=== PATIENT | male | born 1965 | race Caucasian/White ===

== ENCOUNTER 2017-07-08 03:45 | Inpatient (IN) | payer OTHER ==
[2017-07-08] MEDS ORDERED: CEFAZOLIN/Water 2 GM/20 ML SYRINGE ONE (04:02)
[2017-07-08] MEDS ORDERED: Adacel (T-DAP) 0.5 ML VIAL ONE (04:02)
[2017-07-08 04:09] LABS: #Basophils 0.1 thou/uL (0.0-0.2); #Eosinphils 0.2 thou/uL (0.0-0.7); #Lymphocytes 2.2 thou/uL (1.20-3.40); #Monocytes 0.7 thou/uL (0.11-0.59); #Neutrophils 6.2 thou/uL (1.40-6.50); %Basophils 1.1 % (0.0-1.0); %Eosinophils 2.2 % (0.0-10.0); %Lymphocytes 23.1 % (21.0-51.0); %Monocytes 7.1 % (0.0-10.0); %Neutrophils 66.6 % (42.0-75.0); Hemoglobin 16.2 g/dL (14.0-18.0); Mean Corpuscular HGB CONC 34.8 g/dL (32.0-36.0); Mean Corpuscular Hemoglobin 33.7 pg (27.0-31.0); Mean Corpuscular Volume 96.9 fl (80.0-94.0); Mean Platelet Volume 7.5 fL (7.4-10.4); Platelet Count 188 thou/uL (130-400); RBC Distribution Width 11.6 % (11.5-14.5); Red Blood Cell (RBC) Count 4.82 mill/uL (4.70-6.10); White Blood Cell (WBC) Count 9.3 thou/uL (4.8-10.8)
[2017-07-08 04:18] LABS: PTT 23.8 SEC (22.9-36.1); Prothrombin Time 13.3 SEC (12.0-14.7)
[2017-07-08] MEDS ORDERED: Dextrose 50% Abboject 50 ML SYRINGE SLOW IVP PRN (04:25)
[2017-07-08] MEDS ORDERED: Dextrose 5% in Water 1,000 ML IV PRN (04:25)
[2017-07-08 04:32] LABS: ALT (SGPT) 38 U/L (8-55); AST (SGOT) 34 U/L (5-34); Albumin 4.3 g/dL (3.5-5.0); Alcohol 176 mg/dL (Less than 10); Alkaline Phosphatase 68 U/L (40-150); Anion Gap 17 mmol/L (10-20); BUN (Urea Nitrogen) 14 mg/dL (8.4-25.7); Bilirubin, Total 0.3 mg/dL (0.2-1.2); Calc. Creatinine Clearance 0 mL/min (70-130); Calcium 8.5 mg/dL (7.8-10.44); Carbon Dioxide 17 mmol/L (22-29); Chloride 104 mmol/L (98-107); Estimated GFR-MDRD 56; Globulin 2.7 g/dL (2.4-3.5); Glucose 142 mg/dL (70-105); Potassium 3.3 mmol/L (3.5-5.1); Sodium 135 mmol/L (136-145)
[2017-07-08 04:32] LABS: Acetaminophen Less than 6.0 mcg/mL (10.0-30.0); Alcohol 174 mg/dL (Less than 10); Salicylate Less than 8.0 mg/dL (15.0-30.0)
[2017-07-08] MEDS ORDERED: manNITOL 20% 0 ML ONE (04:35)
[2017-07-08] MEDS ORDERED: Propofol 1,000 MG/100 ML VIAL IV PRN (04:37)
[2017-07-08 05:04] LABS: Actual Bicarbonate (HCO3a) 19.4 mEq/L (22-26); Base Excess (BEa) -7.8 mEq/L (0 (+/-) 2.5); CO2 Tension 45.5 mmHg (35.0-45.0); Hematocrit-ABG 46.6 % (42.0-52.0); Hemoglobin (Hb) 15.2 g/dL (14.0-18.0); O2 Tension (PaO2) 234.7 mmHg (80.0-100.0); pH, Arterial 7.25 (7.35-7.45)
[2017-07-08 05:05] LABS: ALV-art Gradient 416.425 (0-20); Analyzer IN Cardio ER; Calcium, Ionized 1.1 mmol/L (1.12-1.30); Puncture Site RRA
[2017-07-08] MEDS ORDERED: ISOVUE-370 76%-LOCM 1 ML ONE (06:24)
[2017-07-08] MEDS: Sodium Chloride 0.9% 1,000 ML IV SCH ×3 (07:00→22:02)
[2017-07-08] MEDS ORDERED: Lorazepam 2 MG/ML VIAL ONE (07:18)
[2017-07-08] MEDS ORDERED: Lorazepam 2 MG/ML VIAL SLOW IVP PRN (07:28)
[2017-07-08] MEDS ORDERED: Fentanyl BOLUS 250 ML IVPB PRN (07:28)
[2017-07-08] MEDS ORDERED: Morphine 2 MG/ML SYRINGE SLOW IVP PRN (07:28)
[2017-07-08] MEDS ORDERED: levETIRAcetam In NaCl (Iso-Os) 1,000 MG in Premix Bag 1 BAG IVPB SCH (07:45)
[2017-07-08] MEDS: Propofol 1,000 MG/100 ML VIAL IV PRN ×4 (08:06→21:02)
[2017-07-08] MEDS: Pantoprazole 40 MG VIAL IVP SCH (08:55)
--- NOTE | 2017-07-08 08:55 | CT ---
PRELIMINARY REPORT/[facility]/EMERGENCY AFTER HOURS PROCEDURE: EXAM: CT Head Without Intravenous Contrast CLINICAL HISTORY: 51 years old, male; Injury or trauma; Fall; Initial encounter; Blunt trauma (contusions or hematomas) ; With loss of consciousness; Not specified; Patient HX: S/P fall, level 1 trauma. TECHNIQUE: Axial computed tomography images of the head/brain without intravenous contrast. COMPARISON: No relevant prior studies available. FINDINGS: Brain: Multifocal bilateral acute subdural hematomas, most prominent over the posterior right parietal regio n laterally where hematoma measures up to 10 mm. Moderate volume bilateral acute subarachnoid hemorrhage right > left. Left cerebellar 4.4 x 2.6 cm parenchymal hematoma with surrounding vasogenic edema. Hemorrhagic fluid layers throughout the falx cerebral and cerebellar falx. 7 mm of right to left subfalcine herniation with effacement of right lateral ventricle but no hydroce phalus. Basilar cisterns are effaced as well and cerebral aqueduct / fourth ventricle are severely narrowed. Cantu / white differentiation maintained at this time. Ventricles: See above. Bones/joints: Bilateral nondisplaced occipital bone fractures extending inferiorly to the skull base. Bilateral transverse nondisplaced temporal bone fractures extending through the mastoid air cells an d petrous ridges. On the left, fracture extends through the carotid canal. Soft tissues: No acute findings. Sinuses: Hemorrhagic fluid also noted in the maxillary sinuses and sphenoid sinuses. Mastoid air cells: Hemorrhagic fluid opacifies mastoid air cells and middle ear cavities. IMPRESSION: Combination bilateral subarchnoid and subdural hemorrhages, right > left with 7 mm right to left subf alcine herniation. Left cerebellar parenchymal hematoma. Basilar cisterns are effaced as well and cerebral aqueduct / fourth ventricle are severely narrowed. No hydrocephalus. Cantu / white differentiation maintained at this time. Bilateral occipital and temporal bone fractures with left temporal fracture extending through the car otid canal. THIS REPORT CONTAINS FINDINGS THAT MAY BE CRITICAL TO PATIENT CARE. The findings were verbally commun icated via telephone conference with TERRA Villanueva by Dr. Juarez on 07/08/2017 4:44 AM INDUSTRIAL TRACTOR DRIVER. The r esults were acknowledged and understood. Thank you for allowing us to participate in the care of your patient. Dictated and Authenticated by: Teri Juarez MD 07/08/2017 4:44 AM Central Time ([place] & [place]) FINAL REPORT HEAD CT NONCONTRST: FINDINGS/IMPRESSION: I agree with the preliminary interpretation provided above. Diffuse extraaxial hemorrhage, both subarachnoid and subdural in location involving the supratentoria l and infratentorial brain with associated bilateral skull base fractures with involvement of the lef t carotid canal. Associated, generalized, diffuse sulcal effacement as a result. POS: [facility]
--- NOTE | 2017-07-08 09:18 | PRG ---
DATE OF SERVICE: 07/08/2017 CHIEF COMPLAINT: Traumatic brain injury with multi-compartmental intracranial bleed, status post fall with skull base fracture. HISTORY OF PRESENT ILLNESS: Mr. Rodrigez is a 51-year-old man who is drinking alcohol today, he was found down by his family. He was minimally responsive and EMS was activated and airway secured. Upon arrival, his GCS was 77. Head CT demonstrated a small right-sided acute subdural hematoma with traumatic subarachnoid hemorrhage in the right sylvian fissure and subarachnoid hemorrhage really throughout the brain and a left hemorrhagic contusion associated with effacement of the ventricular system and basal cisterns. Overall, there is diffuse cerebral edema. He has a left skull base fracture involving the occiput. The cervical, thoracic, and lumbar imagings are negative. He has a history of an L5-S1 fusion. PHYSICAL EXAMINATION: GENERAL: He has a GCS 7T. EYES: His right pupil is 5 mm and reactive. His left pupil is 4 mm and reactive to 3. EXTREMITIES: He localizes in the 4 extremities. IMPRESSION AND PLAN: I discussed his case with Dr. Lua and we will place an ICP monitor. We will watch his course closely. Should he fail medical therapy with intracranial hypertension, we will need to consider hemicraniectomy. We will also obtain a CTA of the brain as his fracture extends through the left carotid canal to make sure he does not have a carotid dissection and also given the blood in the sylvian fissure and particular on the right, to evaluate for ruptured aneurysm, although I suspect not, we will initiate mannitol at this point. ICP monitor will be placed under emergent conditions. DIAGNOSES: 1. Traumatic brain injury with acute subdural hematoma, traumatic subarachnoid hemorrhage and cerebral edema. 2. Left skull base fracture. 3. Ethanol intoxication. MTDD
[2017-07-08 09:26] LABS: Actual Bicarbonate (HCO3a) 18.8 mEq/L (22-26); Base Excess (BEa) -7.1 mEq/L (0 (+/-) 2.5); CO2 Tension 39.4 mmHg (35.0-45.0); Hematocrit-ABG 46.6 % (42.0-52.0); Hemoglobin (Hb) 15.4 g/dL (14.0-18.0); O2 Tension (PaO2) 78.5 mmHg (80.0-100.0)
[2017-07-08 09:27] LABS: Puncture Site RBRACH
--- NOTE | 2017-07-08 09:29 | CT ---
PRELIMINARY REPORT/[facility]/EMERGENCY AFTER HOURS PROCEDURE: EXAM: CT Cervical Spine Without Intravenous Contrast CLINICAL HISTORY: 51 years old, male; Injury or trauma; Fall; Initial encounter; Blunt trauma (contusions or hematomas) ; With loss of consciousness; Not specified; Patient HX: S/P fall, level 1 trauma. TECHNIQUE: Axial computed tomography images of the cervical spine without intravenous contrast. COMPARISON: No relevant prior studies available. FINDINGS: Vertebrae: No fracture or dislocation. No acute compression deformity. No suspicious osseous lesions. Disc spaces / canal / foramina: There is multilevel degenerative disc space narrowing and spur formation. No CT evidence of advanced canal or foraminal stenosis. Paraspinal soft tissues: No pathologic masses or fluid collections. No visible soft tissue air. IMPRESSION: Chronic degenerative changes without acute fracture or dislocation of the cervical spine. Refer to CT brain report regarding occipital and temporal bone fractures. Thank you for allowing us to participate in the care of your patient. Dictated and Authenticated by: Teri Juarez MD 07/08/2017 4:48 AM Central Time ([place] & [place]) FINAL REPORT CT CERVICAL SPINE: There are degenerative changes in the cervical spine most prominent at C5-6 and C6-7 levels. No acut e cervical spine fracture identified. I am in agreement with the preliminary report. POS: [facility]
[2017-07-08 09:30] LABS: Magnesium 2.4 mg/dL (1.6-2.6); Phosphorus 4.3 mg/dL (2.3-4.7)
[2017-07-08] MEDS ORDERED: Oxazepam 10 MG CAP PO SCH (09:45)
--- NOTE | 2017-07-08 10:09 | RAD ---
PORTABLE SUPINE CHEST: HISTORY: Found unconscious. FINDINGS/IMPRESSION: Lungs appear well aerated. ET tube and NG tube are in place. There is streaky atelectasis and/or in filtrate seen in the right upper lung and in the left mid lung. No pneumothorax or consolidation. O sseous structures appear intact. POS: [facility]
[2017-07-08] MEDS: Ondansetron HCl/PF 4 MG/2 ML Vial IVP PRN (10:12)
[2017-07-08 10:18] LABS: Osmolality, Serum 330 mOsm/kg (280-295)
[2017-07-08 10:28] LABS: Amphetamine Not Detected (NotDetected); Barbiturates Screen Not Detected (NotDetected); Benzodiazepine Screen Not Detected (NotDetected); Cocaine Metabolite Screen Not Detected (NotDetected); Medtox Control Line Valid? VALID (VALID); Medtox Reader # READER 1; Methadone Not Detected (NotDetected); Methamphetamine Not Detected (NotDetected); Opiate Screen Not Detected (NotDetected); Oxycodone Screen Not Detected (NotDetected); Phencyclidine (PCP) Not Detected (NotDetected); THC/Cannabinoid Screen Not Detected (NotDetected); Tricyclic Screen Not Detected (NotDetected)
[2017-07-08] MEDS: CEFAZOLIN/Water 2 GM/20 ML SYRINGE SLOW IVP SCH ×2 (11:49→19:23)
--- NOTE | 2017-07-08 13:51 | OP ---
PREPROCEDURE DIAGNOSES: Concern of head injury with cerebral edema and concern of elevated intracran ial pressure. POSTPROCEDURE DIAGNOSES: Concern of head injury with cerebral edema and concern of elevated intracra nial pressure. PROCEDURE: Placement of right ICP Anthony monitor for monitoring of intracranial pressure. DESCRIPTION OF PROCEDURE: A modifier 57 should be added to this surgery as the procedure was done on the day I saw the procedure. Proceeding in an emergent conditions, the patient was identified in th e right frontal, Stephanie's point was identified in this region, was sterilely cleansed, prepared, and draped. Proper patient pause and identification was carried out. Small stab incision was made follo wing sterile cleansing, preparation and draping in the right frontal region and the skull perforated with the skull drill supervisor poultry processing. The dura was opened and the [place] monitor was bolted into place. The tip of the transducer was zeroed and placed and secured, initial intracranial pressure was 8-15 m mHg with a satisfactory waveform. The patient was transferred up to the ICU. There were no immediat e procedural complications.
[2017-07-08] MEDS: Oxazepam 10 MG CAP PO SCH ×2 (14:13→21:00)
[2017-07-08] MEDS ORDERED: FLU VACC QS2017-18 36 mo. & older 0.5 ML SYRINGE IM ONE (15:00)
[2017-07-08 16:27] LABS: Sodium 137 mmol/L (136-145)
--- NOTE | 2017-07-08 16:40 | CT ---
PRELIMINARY REPORT/[facility]/EMERGENCY AFTER HOURS PROCEDURE: EXAM: CT Chest With Intravenous Contrast EXAM DATE/TIME: 07/08/2017 4:07 AM CLINICAL HISTORY: 51 years old, male; Injury or trauma; Fall; Initial encounter; Blunt; Generalized; Blunt trauma (contusions or hematomas); Patient HX: S/P fall, level 1 trauma. TECHNIQUE: Axial computed tomography images of the chest with intravenous contrast. Reformatted images were created and reviewed. CONTRAST: 100 mL of ISOVUE administered intravenously. COMPARISON: No relevant prior studies available. FINDINGS: Lungs: Small-moderate atelectasis versus infiltrates versus pulmonary contusions in the lower lobes, right greater than left. Small amount in the upper lobes. Pleural space: No acute findings. No pneumothorax. No significant effusion. Heart: No significant pericardial effusion. Bones/joints: No acute findings. No acute fracture. No dislocation. Soft tissues: No acute findings. Vasculature: No acute findings. No thoracic aortic aneurysm. Lymph nodes: No significant adenopathy. Tubes, lines and devices: NG tube at the GE junction. Endotracheal tube is 5 cm above the jessy. IMPRESSION: 1: NG tube at the GE junction. Recommend advancing the NG tube 2: Small-moderate atelectasis versus infiltrates versus pulmonary contusions in the lower lobes, righ t greater than left. Small amount in the upper lobes. 3: Endotracheal tube is 5 cm above the jessy. Thank you for allowing us to participate in the care of your patient. Dictated and Authenticated by: Jay Jay Gotti MD 07/08/2017 4:44 AM Central Time ( & Jesus) Addendum created by Jay Jay Gotti MD on 07/08/2017 4:58 AM Central Time ([place] & [place]) THIS REPORT CONTAINS FINDINGS THAT MAY BE CRITICAL TO PATIENT CARE. The findings were verbally commun icated via telephone conference with TERRA PEREIRA at 4:58 AM TECHNICAL WRITER on 07/08/2017. The findings were ackn owledged and understood. Initial Report created on 07/08/2017 4:48 AM Central Time ([place] & [place]) EXAM: CT Abdomen and Pelvis With Intravenous Contrast EXAM DATE/TIME: 07/08/2017 4:07 AM CLINICAL HISTORY: 51 years old, male; Injury or trauma; Fall; Initial encounter; Blunt; Generalized; Blunt trauma (cont usions or hematomas); Patient HX: S/P fall, level 1 trauma. TECHNIQUE: Axial computed tomography images of the abdomen and pelvis with intravenous contrast. CONTRAST: 100 mL of ISOVUE administered intravenously. COMPARISON: No relevant prior studies available. FINDINGS: Lower thorax: See chest CT dictation ABDOMEN: Liver: No mass. Gallbladder and bile ducts: No calcified stones. Pancreas: No acute findings. Spleen: No acute findings. Adrenals: No acute findings. Kidneys and ureters: No hydronephrosis. Stomach and bowel: No evidence for small bowel obstruction. Appendix: No findings to suggest acute appendicitis. PELVIS: Bladder: No acute abnormality. Dorsey catheter in place Reproductive: Unremarkable as visualized. ABDOMEN and PELVIS: Intraperitoneal space: No acute findings. No free air. No significant fluid collection. Bones/joints: No acute fracture. No dislocation. Bilateral L5 pars defects. Posterior fusion hardware at L5-S1 Soft tissues: No acute findings. Vasculature: No acute findings. No abdominal aortic aneurysm. Lymph nodes: No significant adenopathy. Tubes, lines and devices: NG tube at the GE junction IMPRESSION: 1: No evidence for acute trauma to the intra-abdominal organs 2: NG tube at the GE junction. Recommend advancing the NG tube Thank you for allowing us to participate in the care of your patient. Dictated and Authenticated by: Jay Jay Gotti MD 07/08/2017 4:48 AM Central Time ([place] & [place]) FINAL REPORT CT CHEST AND ABDOMEN AND PELVIS WITH IV CONTRAST: Multiple axial tomograms obtained through the chest, abdomen, and pelvis with iv contrast following a trauma protocol. FINDINGS: CT CHEST: There are confluent parenchymal opacities in the posterior aspect of both lower lobes which could rep resent infiltrate, atelectasis, or contusion. These findings were described on the preliminary repor t. I am in agreement with the preliminary report. CT ABDOMEN AND PELVIS: No evidence of acute intraabdominal injury or abnormality. I am in agreement with the preliminary re port. CT THORACIC AND LUMBAR SPINE: Sagittal and coronal images of the thoracic and lumbar spine obtained. Degenerative changes in the c ervical spine. Mild degenerative changes throughout the thoracic and lumbar spine. Thoracic and lum bar vertebrae maintain height and alignment. There are postoperative changes at L5-S1 with pedicle s crews. No evidence of acute vertebral body compression or fracture identified. IMPRESSION: No acute thoracic or lumbar spine fracture identified. I am in agreement with the preliminary report. POS: [facility]
--- NOTE | 2017-07-08 17:09 | PRG ---
DATE OF SERVICE: 07/08/2017 SUBJECTIVE: Mr. Rodrigez is a 51-year-old man, who is status post ground level fall while ethanol into xicated. The patient suffered severe acute traumatic brain injury with left cerebellar contusion, bi frontal cerebral contusion, right convexity subdural hematoma with scattered subarachnoid hemorrhages in addition to comminuted basilar skull fracture. The patient is on full mechanical ventilator supp ort. He is sedated to a modified [place] score of 2-3. His [place] coma scale has remained in single digits. The patient currently localizes to pain once light on sedation. Arlen coma scale therefo re reads E2 M5 V1T. OBJECTIVE: VITAL SIGNS: Includes blood pressure 107/69, pulse is 90, respiratory rate is 18, temperature is 99. 9 degrees Fahrenheit, oxygen saturation 100%. HEENT: Reveals stable occipital scalp abrasions with underlying nonexpanding cephalohematoma. Pupil s are equal, round, and reactive to light bilaterally. He has no jugular venous distention noted. HEART: Reveals regular rate and rhythm. No murmurs or gallops auscultated. LUNGS: Clear to auscultation bilaterally. His breathing is regular and unlabored. ABDOMEN: Soft, nontender, and nondistended. EXTREMITIES: Reveals 2+ radial and pedal pulses bilaterally. No ankle edema is present. NEUROLOGIC: As stated above. Clearly has no focal neurologic deficits present. LABORATORY DATA: Includes CBC with 9300 white blood cells, hemoglobin 16.2, hematocrit is 46.7, plat elet count is 188,000. Metabolic profile: Sodium 135, potassium is 3.3, chloride is 104, bicarbonat e 17, BUN 14, creatinine is 1.33, glucose 142, phosphorus is 4.3, magnesium is 2.4. IMPRESSION: 1. Acute severe traumatic brain injury without any evidence of intracranial hypertension. 2. Acute posttraumatic respiratory failure, stable. 3. Multiple skull base fractures. 4. Acute hypokalemia. 5. Relative acute hyponatremia. PLAN: 1. Continue with full mechanical ventilatory support until the patient is neurologically stable. 2. Correct abnormal electrolytes. 3. Monitor the patient for onset of cerebral salt wasting or acute diabetes insipidus. Total critical care time is 45 minutes.
[2017-07-08] MEDS ORDERED: Potassium Chloride 40 MEQ in Sodium Chloride 0.9% 250 ML 250 ML IVPB SCH (18:00)
--- NOTE | 2017-07-08 18:29 | HP ---
DATE OF ADMISSION: 07/08/2017 HISTORY OF PRESENT ILLNESS: Mr. Rodrigez is a 51-year-old man who apparently was drinking with his family last night. He apparently fell from a standing position. This was not witnessed; however, his heard a thump. The patient was found initially obviously inebriated. Thirty minutes later, the patient was not seen around and was discovered on the kitchen floor unresponsive. 911 was activated and responded; EMS reported the patient being combative after receiving Narcan. He had 1 bout of large volume emesis. His airway was cleared and the patient was electively intubated and transported via ambulance to [facility] in [place], [place]. He had obvious external markers of head trauma. Arlen coma scale pre-intubation was noted at E1, M4, V2. The patient arrived hemodynamically stable though with a Arlen coma scale of 3 , having been sedated and pharmacologically paralyzed for transport. PAST MEDICAL HISTORY: Significant for gastroesophageal reflux disease. PAST SURGICAL HISTORY: Pertinent for some back surgery according to his , level unknown. SOCIAL HISTORY: He is and lives at home with his . He smokes I pack of cigarettes per day and he has done so far over 20 years. He drinks heavily only on weekends. The reports the patient never had any alcohol withdrawal. He has no illicit drug abuse history. FAMILY HISTORY: Notable for heart disease in his father who from complications thereof. There is no family history of diabetes mellitus, essential hypertension or cancer. PREHOSPITALIZATION MEDICATION: Includes Nexium. ALLERGIES: The patient denies no known drug allergies. REVIEW OF SYSTEMS: Could no be obtained as the patient is in deep coma and has been sedated on mechanical ventilator support. PHYSICAL EXAMINAITON: GENERAL: This reveals a 51-year-old normally developed man, who is in coma and appeared to be in no acute distress at the time of my evaluation. He is intubated through an endotracheal tube orally. VITAL SIGNS: Initially includes blood pressure 142/97, pulse 64, respiratory rate is 16, temperature is 92.7 degrees Fahrenheit, oxygen saturation 99% on full mechanical ventilatory support, FiO2 100%. HEENT: Reveals left occipital skull abrasion with minimum cephalohematoma. Pupils are equally round, and reactive to light at 2 mm bilaterally. Nares are patent. No discharge. Left tympanic membrane is obscured by blood. The right tympanic membrane is visualized. No hemotympanum is present. CERVICAL SPINE: Cervical spine, which is immobilized in a C-collar is maintained in a neutral position. He has no cervical spine step-offs on palpation. CHEST: Chest wall is stable. No gross deformities or step-offs are present. HEART: Reveals regular rate and rhythm, no murmurs or gallops auscultated. LUNGS: Clear to auscultation bilaterally. Breathing is regular and unlabored. ABDOMEN: Soft, nontender, nondistended. Liver and spleen are nonpalpable below costal margins. PELVIS: Stable. No gross deformities or step-offs present. GENITOURINARY: Examination reveals bilateral descended testicles and normal male genitalia. He has no blood in his urethral meatus. There was no ecchymosis or hematoma of the scrotum or perineum. EXTREMITIES: Reveals 2+ radial and pedal pulses bilaterally. He has bruising of the right knee as well as abrasions of the dorsum aspect of the second left toe. NEUROLOGIC: Suboptimal. Patient is in coma and is sedated, pharmacologically paralyzed during this examination. When the patient was log rolled, thoracic and lumbar spine were palpated free of any acute abnormalities. PERTINENT LABORATORY DATA AND IMAGING: Today includes CBC with 9300 white blood cells, hemoglobin 16.2, hematocrit is 46.7, platelet count is 188,000. PTT and INR noted at 23.8 seconds and 1.0 respectively. Metabolic profile: Sodium 135, potassium is 3.3, chloride is 104, bicarbonate 17, BUN 14, creatinine is 1.33, glucose 142. Total bilirubin is 0.3. AST and ALT are normal at 34 and 38 respectively. Alkaline phosphatase is normal at 68. Serum alcohol level is 174. Chest x-ray confirms normal placement of the endotracheal tube. No acute traumatic injury is evident. A CT scan of the brain is remarkable for moderate left cerebellar contusion, associated left occipital skull fracture and left temporal bone fracture. Also noted is right convexity small thickness subdural hematoma with right to left midline shift. There is a contrecoup bifrontal cerebral contusion and some scattered subarachnoid hemorrhages. CT scan of the chest is unremarkable for any acute intrathoracic pathology. CT scan of the abdomen and pelvis revealed no acute intraabdominal pathology. CT scan of the cervical spine reveals no fractures or dislocation. CT scan of the thoracic and lumbar spine revealed no fractures or dislocation. IMPRESSION: 1. Status post ground level fall. 2. Acute ethanol intoxication. 3. Acute severe traumatic brain injury with coup left cerebellar contusion and bifrontal contrecoup cerebellar contusions as well as right convexity subdural hematoma and scattered subarachnoid hemorrhages. 4. Acute cerebral edema. 5. Acute respiratory failure secondary to acute traumatic brain injury. 6. Left occipital and temporal bone fractures. PLAN: 1. Neurosurgical consultation with Dr. Nogueira regarding the acute severe traumatic brain injury. 2. Full mechanical ventilatory support until the patient is neurologically stable. 3. Monitor electrolytes and avoid hyponatremia. 4. Initiate prophylaxis against venous thromboembolism and gastritis. 5. Initiate physical and occupational therapy. The patient will eventually be evaluated by PM&R for possible inpatient rehabilitation once neurologically stable. The above findings and plan has been discussed with the patient's family at bedside. They indicated understanding of the information given. I have answered their questions. Total Critical Care time : 75 minutes MTDD
[2017-07-09] MEDS: Propofol 1,000 MG/100 ML VIAL IV PRN ×7 (00:06→23:36)
--- NOTE | 2017-07-09 00:13 | PRG ---
DATE OF SERVICE: 07/08/2017 SUBJECTIVE: This is a 51-year-old gentleman who was presented to [facility] with level 1 tr auma activation status post ground level fall. He was found to have severe TBI. The patient has rem ained stable throughout the day. He currently is sedated on mechanical ventilation. OBJECTIVE: Reviewed and stable. Ventilator settings are stable. Symmetric chest rise. The patient is sedated. ICP monitoring is in place. LABORATORY DATA: Most recent labs reviewed with trauma attending. Urine output has been adequate. ASSESSMENT AND PLAN: As documented in daily progress note. Continue care as ordered. CTA has been ordered for the a.m. We will follow a.m. labs. Continue sedation in mechanical ventilation. Case h as been discussed with trauma attending.
[2017-07-09] MEDS: CEFAZOLIN/Water 2 GM/20 ML SYRINGE SLOW IVP SCH ×3 (03:15→20:45)
[2017-07-09 04:43] LABS: #Lymphocytes 0.8 thou/uL (1.20-3.40); #Monocytes 1.4 thou/uL (0.11-0.59); #Neutrophils 11.7 thou/uL (1.40-6.50); %Basophils 0.1 % (0.0-1.0); %Eosinophils 0.2 % (0.0-10.0); %Lymphocytes 5.5 % (21.0-51.0); %Neutrophils 84.1 % (42.0-75.0); Hemoglobin 13.4 g/dL (14.0-18.0); Mean Corpuscular HGB CONC 33.6 g/dL (32.0-36.0); Mean Corpuscular Hemoglobin 32.7 pg (27.0-31.0); Mean Corpuscular Volume 97.3 fl (80.0-94.0); Mean Platelet Volume 7.6 fL (7.4-10.4); Platelet Count 162 thou/uL (130-400); RBC Distribution Width 11.6 % (11.5-14.5); Red Blood Cell (RBC) Count 4.09 mill/uL (4.70-6.10); White Blood Cell (WBC) Count 13.9 thou/uL (4.8-10.8)
[2017-07-09 05:02] LABS: Anion Gap 11 mmol/L (10-20); BUN (Urea Nitrogen) 14 mg/dL (8.4-25.7); Calc. Creatinine Clearance 105 mL/min (70-130); Calcium 7.9 mg/dL (7.8-10.44); Carbon Dioxide 24 mmol/L (22-29); Chloride 103 mmol/L (98-107); Estimated GFR-MDRD 68; Glucose 121 mg/dL (70-105); Magnesium 2.1 mg/dL (1.6-2.6); Phosphorus 2.2 mg/dL (2.3-4.7); Potassium 3.8 mmol/L (3.5-5.1); Sodium 134 mmol/L (136-145)
[2017-07-09] MEDS: Oxazepam 10 MG CAP PO SCH ×3 (05:59→22:08)
[2017-07-09] MEDS: Sodium Chloride 0.9% 1,000 ML IV SCH ×2 (08:02→15:19)
[2017-07-09] MEDS: Folic Acid 1 MG TAB PO SCH (08:55)
[2017-07-09] MEDS: Pantoprazole 40 MG VIAL IVP SCH (08:56)
--- NOTE | 2017-07-09 11:18 | CT ---
CT ANGIO HEAD WITH AND WITHOUT CONTRAST: HISTORY: Follow-up intracranial hemorrhage. TECHNIQUE: Multiple axial tomograms obtained through the head without IV enhancement. This was followed by a CT angio of the head performed with IV enhancement, in the arterial phase, with multiplanar reconstruct ion and 3D post processing. FINDINGS: NONCONTRAST CT: Review of the noncontrast CT again shows the parenchymal hematoma in the left cerebe llar hemisphere. This hematoma has not significantly changed in size. There continues to be diffuse subarachnoid hemorrhage seen in both cerebral hemispheres, slightly more pronounced on the right, in the region of the sylvian fissure, similar to yesterday. There is blood along the falx. On today's exam, there is decreased attenuation seen in the inferior frontal lobes bilaterally, which may represent changes from contracoup type injury, given the presence of the occipital bone fracture s. No other significant change on the noncontrast study. CT ANGIO HEAD: The right middle cerebral artery is abnormal. There is luminal irregularity and mild narrowing seen at the proximal M1 segment on the axial images. There is haziness surrounding this a rtery in both M1 and M2 segments. Findings may represent spasm related to the subarachnoid blood. Otherwise, the anterior cerebral arteries, left middle cerebral artery, and posterior cerebrals are u nremarkable. The basil artery is patent. The intracranial internal carotid arteries are unremarkabl e. No aneurysm identified. IMPRESSION: 1. The noncontrast head CT again shows intracranial hemorrhages, as described above, which appear st able. There is increased lucency in the inferior frontal lobes seen today, as noted above. 2. The CT angiogram of the brain shows an abnormality of the right middle cerebral artery, which ma y reflect changes due to the subarachnoid hemorrhage, as noted above. POS: [facility]
--- NOTE | 2017-07-09 11:31 | RAD ---
FRONTAL VIEW CHEST: INDICATIONS: Post traumatic head injury. Respiratory failure. COMPARISON: The previous day. FINDINGS: Developing patchy right perihilar opacities are present. The left lung is grossly clear. An enteric catheter traverses through the left upper abdomen. There are extrinsic artifacts limiting detail. IMPRESSION: Developing right perihilar opacity, which may be on the basis of pneumonitis or asymmetric edema. Co ntinued followup is recommended. POS: [facility]
--- NOTE | 2017-07-09 14:43 | PRG ---
DATE OF SERVICE: 07/09/2017 SUBJECTIVE: Mr. Rodrigez is hospital day #2 following a head injury. CT angiogram demonstrates likely mild vasospasm in the right M1 distribution due to subarachnoid hemorrhage. However, his intracrani al blood pattern has reduced. His edema also appears to be improved. His ICPs have been in the 7-12 mmHg range. He remains on scheduled mannitol with appropriate lab indices. We will continue to anand p him sedated at this point through to the peak edema and hopefully avoid any type of surgical interv ention.
--- NOTE | 2017-07-09 15:48 | PRG ---
CRITICAL CARE NOTE DATE OF SERVICE: 07/09/2017 SUBJECTIVE: Mr. Rodrigez is a 51-year-old man who was admitted on 07/08 following an apparent fall during which he sustained a severe acute traumatic brain injury. The patient is sedated on full mechanical ventilator support. ICP has been ranging less than 15. When light on sedation, he opens his eyes and localizes to pain. He has had no bowel movement. He requires no vasopressor support. A repeat head CT scan today reveals bifrontal vasogenic edema. The previous intracranial hemorrhages were resolving. The left cerebellar hemorrhagic contusion appears stable. The cerebral angiography that was obtained suggests luminal narrowing of the M1 segment of right middle cerebral artery in the vicinity of the previous large subarachnoid hemorrhage. The patient is having adequate urinary output. OBJECTIVE: VITAL SIGNS: Today includes blood pressure 114/75, pulse 93 and respiratory rate 17. Maximum temperature in the last 24 hours is 100.1 degrees Fahrenheit. Oxygen saturation is 100% on FiO2 of 30%. HEENT: Reveals pupils are equal, round and reactive to light bilaterally. He has no jugular venous distention noted. HEART: Reveals regular rate and rhythm. He has no murmurs or gallops auscultated. LUNGS: Clear to auscultation bilaterally. Breathing is regular and unlabored. ABDOMEN: Soft, nontender and nondistended. Bowel sounds in all four quadrants appear normoactive. EXTREMITIES: Reveals 2+ radial and pedal pulses bilaterally. He has no ankle edema present. NEUROLOGIC: Reveals patient who is in coma; however, stable. He has no focal neurologic deficits on examination. LABORATORY DATA: Pertinent laboratory findings today includes CBC with 13,900 white blood cells, hemoglobin is 13.4, hematocrit is 39.8 and platelet count is 162,000. Metabolic profile: Sodium 134, potassium is 3.8, chloride is 103, bicarbonate is 24, BUN 14, creatinine is 1.13, glucose 121, magnesium is 2.1 and phosphorus is 2.2. IMAGING DATA: I have personally reviewed the chest x-ray obtained today, which reveals increased in the right upper lobe pulmonary consolidative infiltrates. No pneumothorax or pleural effusion is evident. Given this patient's history of emesis and pulmonary aspiration prior to initial intubation at the scene of the fall, this likely suggest a pulmonary aspiration. IMPRESSION: 1. Post-injury day #1, status post fall. 2. Acute severe traumatic brain injury, stable. 3. Acute posttraumatic respiratory failure. 4. Acute pulmonary aspiration, likely acute aspiration pneumonia given the leukocytosis and fever onset over the last 24 hours. 5. Acute hypokalemia. 6. Acute hypophosphatemia. 7. Relative acute hyponatremia. PLAN: 1. Continue with full mechanical ventilatory support. 2. Continue with free water restriction. 3. Correct abnormal electrolytes. 4. Continue with physical and occupational therapy. 5. Maintain prophylaxis against gastritis and VTE. Total Critical care time : 50 minutes MTDD
[2017-07-09 16:27] LABS: Sodium 137 mmol/L (136-145)
[2017-07-09] MEDS ORDERED: Clopidogrel Bisulfate 75 MG TAB ONE (16:41)
[2017-07-09] MEDS: Potassium Phosphate 30 MMOL in Sodium Chloride 0.9% 500 ML IVPB SCH ×2 (16:45→18:40)
[2017-07-09] MEDS: cefTRIAXone\\ROCEPHIN 2 GM in Sodium Chloride 0.9% 100 ML IVPB SCH (17:54)
[2017-07-09] MEDS ORDERED: Sodium Chloride 1 GM TAB PO SCH (21:00)
[2017-07-09] MEDS ORDERED: Acetaminophen 1,000 MG in Premix Bag 1 BAG IVPB SCH (23:15)
--- NOTE | 2017-07-09 23:50 | PRG ---
DATE OF SERVICE: 07/09/2017 SUBJECTIVE: Antonio Rodrigez is a 51-year-old male, status post fall and severe TBI. The patient remain s intubated and sedated with neurological monitoring. Family is at bedside. The patient has done we ll and has been stable throughout the day. He was noted to be febrile with leukocytosis earlier toda y. Antibiotics have been started. OBJECTIVE: VITAL SIGNS: Reviewed and stable. Ventilator status stable. GENERAL: The patient is resting in bed, sedated, in no acute distress. ASSESSMENT AND PLAN: As documented in daily progress note. Continue care as ordered. Continue to m onitor. A.m. labs.
[2017-07-10] MEDS: fentaNYL Citrate/PF 2,000 MCG in Sodium Chloride 0.9% 60 ML IV SCH (00:47)
[2017-07-10] MEDS: Sodium Chloride 0.9% 1,000 ML IV SCH ×5 (01:03→23:44)
[2017-07-10] MEDS: Propofol 1,000 MG/100 ML VIAL IV PRN ×6 (03:25→23:36)
[2017-07-10] MEDS: CEFAZOLIN/Water 2 GM/20 ML SYRINGE SLOW IVP SCH (03:25)
[2017-07-10 05:15] LABS: Band 1 % (5-11); Hemoglobin 13.5 g/dL (14.0-18.0); Lymphocytes 9 % (21-51); MDiff Complete? YES; Mean Corpuscular HGB CONC 33.7 g/dL (32.0-36.0); Mean Corpuscular Hemoglobin 33.3 pg (27.0-31.0); Mean Corpuscular Volume 99.1 fl (80.0-94.0); Mean Platelet Volume 7.9 fL (7.4-10.4); Monocytes 11 % (0-10); Neutrophil 78 % (42-75); Platelet Count 157 thou/uL (130-400); RBC Distribution Width 11.8 % (11.5-14.5); Reactive Lymphocytes 1 % (0-10); Red Blood Cell (RBC) Count 4.05 mill/uL (4.70-6.10); White Blood Cell (WBC) Count 12.5 thou/uL (4.8-10.8)
[2017-07-10 06:07] LABS: Anion Gap 14 mmol/L (10-20); BUN (Urea Nitrogen) 23 mg/dL (8.4-25.7); Calc. Creatinine Clearance 50 mL/min (70-130); Calcium 8.1 mg/dL (7.8-10.44); Carbon Dioxide 22 mmol/L (22-29); Chloride 105 mmol/L (98-107); Estimated GFR-MDRD 31; Glucose 120 mg/dL (70-105); Magnesium 2.4 mg/dL (1.6-2.6); Phosphorus 3.8 mg/dL (2.3-4.7); Potassium 4.5 mmol/L (3.5-5.1); Sodium 136 mmol/L (136-145)
[2017-07-10] MEDS: Oxazepam 10 MG CAP PO SCH ×3 (07:28→21:03)
[2017-07-10] MEDS: Pantoprazole 40 MG VIAL IVP SCH (08:10)
[2017-07-10] MEDS: Folic Acid 1 MG TAB PO SCH (08:11)
--- NOTE | 2017-07-10 08:25 | RAD ---
PORTABLE SEMIUPRIGHT FRONTAL CHEST RADIOGRAPH: DATE: 07/10/17. COMPARISON: 07/09/17. HISTORY: Recent trauma, respiratory failure, aspiration pneumonia. FINDINGS: Multiple segments of catheter tubing overlie the superior mediastinum, limiting assessment. Distal a spect of endotracheal tube appears to terminate in the region of the clavicular heads. Nasogastric t ube extends into the left upper quadrant. There is airspace disease in the perihilar regions, right greater than left, with airspace disease al so noted in the right upper lobe/right suprahilar region. Findings are similar when compared to prio r imaging. No pneumothorax is seen. IMPRESSION: Lines and tubes as above. Perihilar opacity noted, right greater than left, with airspace disease no reji in the right upper lobe as well. POS: [facility]
--- NOTE | 2017-07-10 08:50 | PRG ---
DATE OF SERVICE: 07/10/2017 Mr. Rodriegz is hospital day #3. His ICPs are under good control with low single digit readings. When sedation was weaned he was very agitated and wild requiring increasing of the sedation. This is goo d news; however, neurologically. We will plan to leave the ICP monitor in for likely one more day th rough the peak swelling. His serum osmolality is 318, but his sodium is in the mid 130s and it is li mariya something else is causing elevated serum osmolality, presumably cholesterol or perhaps protein. Nevertheless, we will draw 1 more before we give the next dose of mannitol if over 320, we will need to hold the mannitol.
[2017-07-10 10:15] LABS: Anion Gap 13 mmol/L (10-20); BUN (Urea Nitrogen) 27 mg/dL (8.4-25.7); Calc. Creatinine Clearance 40 mL/min (70-130); Calcium 7.8 mg/dL (7.8-10.44); Carbon Dioxide 20 mmol/L (22-29); Chloride 102 mmol/L (98-107); Estimated GFR-MDRD 24; Glucose 126 mg/dL (70-105); Potassium 5.2 mmol/L (3.5-5.1); Sodium 130 mmol/L (136-145)
[2017-07-10] MEDS: Sodium Chloride 1 GM TAB PO SCH ×2 (11:17→20:34)
[2017-07-10] MEDS: cefTRIAXone\\ROCEPHIN 2 GM in Sodium Chloride 0.9% 100 ML IVPB SCH (15:49)
[2017-07-10 16:13] LABS: Sodium 133 mmol/L (136-145)
--- NOTE | 2017-07-10 17:18 | PRG ---
DATE OF SERVICE: 07/10/2017 SUBJECTIVE: The patient is hospital day #3 status post ground level fall in which he sustained a sev ere traumatic brain injury. The patient currently has an ICP monitor in and is on full mechanical ve ntilatory support. He had no issues overnight. The nurses report that when he is on light sedation, his ICP pressures do go up and he reacts to painful stimuli. PHYSICAL EXAMINATION: GENERAL: During my exam, he was fully sedated. His Arlen coma scale was E1 V1t M1. ICP monitors remained less than 15. Urinary output for the previous 24 hours was 5205 mL. The patient has not woodard d a bowel movement yet. LUNGS: Clear to auscultation bilaterally. HEART: Regular rate and rhythm. ABDOMEN: Soft and flat with hypoactive bowel sounds. EXTREMITIES: Show capillary refill less than 3 seconds. Pulses are 2+. No gross edema. LABORATORY DATA AND IMAGING DATA: White blood cell count 12.5, hemoglobin 13.5, hematocrit 40.2, and platelets 157. Sodium 130, potassium 5.2, chloride 102, CO2 20, BUN 27, creatinine 2.82, glucose 12 6. Serum osmolality 326. Chest x-ray this morning shows perihilar opacity noted, right greater than left with airspace disease noted in the right upper lobe as well. ASSESSMENT AND PLAN: 1. Status post ground level fall. 2. Acute severe traumatic brain injury. 3. Acute posttraumatic respiratory failure. 4. Acute pulmonary aspiration. 5. Hyponatremia. 6. Acute kidney injury. Plan will be to continue full mechanical ventilatory support. Continue free water restriction, elect rolyte abnormality correction and we will also obtain urine sodium and urine osmolality studies to di fferentiate if the patient has possibly a cerebral salt wasting, DI, or SIADH, cerebral salt wasting being the current likely possibility.
[2017-07-10] MEDS ORDERED: Nitroglycerin 0.4 MG TAB (25 Tab Bottle) ONE (17:44)
[2017-07-10] MEDS ORDERED: Vecuronium 10 MG VIAL IV SCH ×2 (18:00→22:30)
--- NOTE | 2017-07-10 21:33 | ULT ---
BILATERAL RENAL ULTRASOUND: 07/10/17 HISTORY: Acute renal insufficiency. FINDINGS: The right kidney measures 11.3 cm in length and the left kidney measures 10.8 cm in length. No focal mass or hydronephrosis is seen on either side. Cortical echogenicity and thickness is normal. Dorsey c atheter is present in the a nondistended urinary bladder. IMPRESSION: No significant abnormalities are seen. POS: [facility]
[2017-07-10] MEDS ORDERED: Midazolam HCl 2 mg/2 ml Vial ONE (21:40)
[2017-07-10] MEDS ORDERED: Midazolam HCl 2 mg/2 ml Vial SLOW IVP SCH (22:00)
--- NOTE | 2017-07-10 22:06 | RAD ---
PORTABLE CHEST ONE VIEW 07/10/17 at 9:10 p.m. HISTORY: Dyssynchrony. FINDINGS/IMPRESSION: Comparison made with earlier exam of 4:29 a.m. Tube placements are unchanged in position. The heart size is stable. Perihilar opacities are again se en. No pneumothoraces or large effusions are identified. POS: [facility]
[2017-07-10] MEDS ORDERED: Sodium Chloride 0.9% 1,000 ML IV SCH (22:30)
[2017-07-10] MEDS ORDERED: Vecuronium Bromide 50 MG in Sodium Chloride 0.9% 250 ML 250 ML IV SCH (22:45)
[2017-07-10 22:54] LABS: Anion Gap 17 mmol/L (10-20); BUN (Urea Nitrogen) 34 mg/dL (8.4-25.7); Calc. Creatinine Clearance 25 mL/min (70-130); Carbon Dioxide 19 mmol/L (22-29); Chloride 103 mmol/L (98-107); Estimated GFR-MDRD 14; Glucose 110 mg/dL (70-105); Potassium 5.5 mmol/L (3.5-5.1); Sodium 133 mmol/L (136-145)
[2017-07-10] MEDS: Sodium Bicarbonate 150 MEQ in Dextrose 5% in Water 1,000 ML IV SCH (23:44)
[2017-07-10 23:51] LABS: Osmolality, Urine 342 mOsm/kg (300-900)
[2017-07-10 23:58] LABS: Sodium, Urine Less than 20 mmol/L (Not Available)
--- NOTE | 2017-07-11 00:35 | PRG ---
DATE OF SERVICE: 07/10/2017 SUBJECTIVE: Antonio Rodrigez is a 51-year-old male status post fall with severe TBI. This is hospital d ay #3. I had previously rounded on the patient earlier in my shift, at that time, the patient was he modynamically stable with stable ventilator settings. He was awaiting evaluation for oliguria by [facility]rology. I was called to bedside by nursing staff for abrupt onset of ventilator dyssynchrony, eleva reji peak pressures, agitation, elevated ICP, and persistent oliguria. Upon my evaluation, the patien t was resting in bed with family at bedside. Peak ventilator pressures ranged from the 50s-60s. Malika mckeon was noted to be over-breathing the vent intermittently, but this had improved after he received a bolus of IV sedation. Chest x-ray, stat labs, nebulizing treatment, and IV fluid boluses were orde red. OBJECTIVE: VITAL SIGNS: Blood pressure 163/103, heart rate of 81, O2 sat 97%. Ventilator settings, SIMV rate o f 14, tidal volume 500, PEEP of 5, and FiO2 of 60%. GENERAL: Patient is resting in bed in no acute distress. ICP monitor in place. PULMONARY: Patient is intubated. Symmetric chest rise. Breath sounds are positive bilaterally. Th ere is some expiratory wheezing of the left anterior chest. Suction of ET tube demonstrates thick ye llow and occasionally blood-tinged phlegm. CARDIOVASCULAR: Regular rate and rhythm. ABDOMEN: Soft, nontender, and nondistended. EXTREMITIES: With good capillary refill. LABORATORY DATA: Pending. Chest x-ray without pneumothorax. ET tube position is unchanged. There are bilateral perihilar opacities, right greater than left. ASSESSMENT: 1. Status post fall with severe traumatic brain injury. 2. Acute respiratory failure secondary to above. 3. Ventilator dyssynchrony and agitation. 4. Acute renal failure with elevated creatinine and oliguria. 5. Hyperkalemia. 6. Elevated serum osmols after administration of mannitol. 7. Hyponatremia. PLAN: Patient was temporarily paralyzed after failure to control peak airway pressures with changing ventilator settings and increasing sedation. Dr. Lua was contacted via telephone and is aware of patient's status. A vecuronium drip was ordered. Peak airway pressures now ranging from 25-30 and h is BMP has returned. He has worsening creatinine with metabolic acidosis and hyperkalemia. We will start a bicarbonate drip. Kayexalate now. Follow urine output. Given patient's FIO2 requirements o f 60%, we will increase PEEP to 8. Neurosurgical team was notified as during this event, patient's I CP was elevated in the 30s and it has now returned to 15-18. They have no further new recommendation s. Additional critical care time spent at bedside approximately 33 minutes.
--- NOTE | 2017-07-11 01:49 | CON ---
DATE OF CONSULTATION: 07/10/2017 CONSULTING PHYSICIAN: Chana Chapman M.D. REQUESTING PHYSICIAN: Edgar Nova PA-C with the trauma service. REASON FOR CONSULTATION: Hyponatremia and acute renal shutdown. IMPRESSION: 1. Acute kidney injury virtually anuric. This is likely in the context of prerenal state with intra vascular depletion and each attendant low renal perfusion. This intravascular depletion must have be en a rebound phenomenon and he states that when patient was on mannitol, a lot of fluid shifted from the intracellular space into the extracellular space, in this case intravascular space. Status post discontinuation of mannitol, reversal of fluid into the intracellular space ; thereby depriving the intravascular space of much needed fluid for renal perfusion. 2. Hyponatremia. This hyponatremia based on the urine chemistry is likely in keeping with intravasc ular depletion with each attendant high antidiuretic hormone state, in this case appropriate in order to reexpand the intravascular volume. 3. Hyperkalemia. This is likely due to reduced GFR. PLAN: 1. Intravascular volume depletion is strongly recommended; therefore, IV fluid normal saline resusci tation is recommended. 2. Renally dosed all medications almost zero GFR, as patient is not making any urine whatsoever. 3. Avoid potentially nephrotoxic agents. 4. We will reevaluate the renal function tomorrow with a renal function panel to evaluate other elec trolytes that will potentially accumulate in this scenario. 5. There is no emergent indication at this point for renal replacement therapy. Hopefully, this pre renal state would not prolong to the point of acute tubular necrosis. HISTORY OF PRESENT ILLNESS: A 51-year-old gentleman with a significant history of alcohol usage, who passed out, fell down from a standing position and sustained intracerebral bleed. Patient due to ce rebral edema was initiated on mannitol with massive diuresis. Status post discontinuation of mannito l, it has been observed that the patient is not making any more urine with each attendant rise in cre atinine level. Patient also noted with the lower sodium level, which is likely in the context of hig h ADH state but in this case appropriate. As a result of these findings, decision has been taken to involve Renal in the management of this case. PAST MEDICAL HISTORY: Significant for reflux disease, alcohol abuse. MEDICATIONS: Reviewed as documented on [employer]. ALLERGIES: No known drug allergies. FAMILY HISTORY: Not significantly related to the complaint for consult. REVIEW OF SYSTEMS: Could not be obtained from this patient who is intubated. PHYSICAL EXAMINATION: GENERAL: Patient was found to be intubated and sedated noted with the following vital signs. VITAL SIGNS: Afebrile, temperature 98.2, pulse 75, blood pressure 120/69, O2 sat 99%. HEENT: Unremarkable except for endotracheal tube in place. CARDIOVASCULAR SYSTEM: First and second heart sounds were heard. RESPIRATORY SYSTEM: Clear to auscultation and reveal vented sounds. DIGESTIVE SYSTEM: Revealed a benign abdomen. EXTREMITIES: No peripheral edema. SKIN: No new gross rash. LYMPHATICS: No peripheral lymphadenopathy. SUMMARY: A 51-year-old gentleman status post mechanical fall that resulted intracranial bleed, now e xperiencing renal shutdown as well as hyponatremia. Thank you for this consultation. We will follow with you.
[2017-07-11] MEDS: fentaNYL Citrate/PF 2,000 MCG in Sodium Chloride 0.9% 60 ML IV SCH (03:08)
[2017-07-11] MEDS: Propofol 1,000 MG/100 ML VIAL IV PRN ×4 (03:08→20:31)
[2017-07-11 05:09] LABS: Albumin 3.1 g/dL (3.5-5.0); Anion Gap 17 mmol/L (10-20); BUN (Urea Nitrogen) 35 mg/dL (8.4-25.7); BUN/Creatinine Ratio 7.34; Calc. Creatinine Clearance 23 mL/min (70-130); Calcium 7.6 mg/dL (7.8-10.44); Carbon Dioxide 17 mmol/L (22-29); Chloride 104 mmol/L (98-107); Estimated GFR-MDRD 13; Glucose 140 mg/dL (70-105); Phosphorus 4.5 mg/dL (2.3-4.7); Potassium 5.1 mmol/L (3.5-5.1); Sodium 133 mmol/L (136-145)
[2017-07-11] MEDS: Oxazepam 10 MG CAP PO SCH ×3 (06:15→20:25)
[2017-07-11] MEDS: Pantoprazole 40 MG VIAL IVP SCH (08:31)
[2017-07-11 08:56] LABS: Osmolality, Serum 327 mOsm/kg (280-295)
--- NOTE | 2017-07-11 09:09 | RAD ---
PORTABLE AP CHEST: Date: 07-11-17 History: Intubated. Follow up evaluation. Comparison: 07-10-17 FINDINGS: Nasogastric tube remains in place. There has been interval placement of an endotracheal tube which ov erlies the T3-4 level and is above the level of the jessy. Patient is rotated to the right. There is increased patchy parenchymal opacities within the medial aspect of the left midlung zone at the left lung base with mild patchy densities seen in the right upper lung zone. Findings could be related to either asymmetric edema or infectious process. Continued follow up is recommended. No pleural effusi on is visualized. Cardiac silhouette is within normal limits for patient rotation. No other interval change. IMPRESSION: Patchy density right upper lung zone with interval increase in left perihilar patchy opacities compar ed to the prior study. Findings may be related to either asymmetric pulmonary edema or infectious pro cess. Continued follow up to resolution is recommended. POS: [facility]
[2017-07-11] MEDS: Sodium Bicarbonate 150 MEQ in Dextrose 5% in Water 1,000 ML IV SCH ×2 (09:22→19:36)
--- NOTE | 2017-07-11 10:32 | RAD ---
FRONTAL VIEW CHEST: Comparison: 07-11-17 Indication: Central line placement. FINDINGS: There is a left subclavian venous catheter with the tip overlying the region of the SVC. Endotracheal tube remains in place with the tip between the thoracic aorta and jessy. Enteric catheter traverses the left abdomen below the field of view. There is persistent bilateral patchy perihilar opacities. Otherwise, no significant interval change. IMPRESSION: 1. Interval placement of left subclavian venous catheter. 2. Redemonstration of bilateral perihilar opacities, which are slightly greater than on previous exam . Continued follow up is warranted. POS: [facility]
[2017-07-11] MEDS: Folic Acid 1 MG TAB PO SCH (10:44)
[2017-07-11] MEDS: Polyethylene Glycol 3350 17 GM Packet PER TUBE SCH (10:45)
--- NOTE | 2017-07-11 11:39 | CT ---
HEAD CT WITHOUT CONTRAST: Date: 07/11/17 COMPARISON: 07/08/17. HISTORY: Elevated intracranial pressure, altered mental status, intracranial hemorrhage. TECHNIQUE: Serial axial CT imaging obtained at 5 mm intervals from vertex through skull base without contrast. FINDINGS: An intracranial pressure monitor is seen associated with the right frontal calvarium. There is partial opacification of bilateral ethmoid air cells and sphenoid sinuses. There are extensive occipital bone fractures, left greater than right, extending into the region of t he foramen magnum. There is an obliquely oriented fracture extending through the petrous apex on the left and there is a fracture extending through the carotid canal at the proximal aspect of the petrou s segment on the left. There is an intra-axial hemorrhage in the left cerebellar hemisphere measuring up to 4.1 cm AP x 2.8 cm transverse. When compared to 07/08/17 exam, this hemorrhage is stable to slightly enlarged, previo usly measuring 4.1 x 2.2 cm. There is adjacent edema along the anterior margin of the intra-axial hemorrhage in the left cerebella r hemisphere which may represent edema within the middle cerebellar peduncle and/or pontomedullary ju nction. The fourth ventricle inferiorly is completely effaced. There is increased mass effect on the posterio r fossa with complete obliteration of the basilar cisterns, suspicious for downward herniation. There is mass effect on the dorsal aspect of the mid brain, which is compressed and deviated to the right. Multifocal extra-axial hemorrhage is noted on the right, including scattered areas of subdural and moreland barachnoid hemorrhage, most prominent in the region of the right sylvian fissure. Bilateral frontal l obe hemorrhagic contusions are noted, similar when compared to 07/09/17 and progressed since 07/08/17 . Hypodensity is noted in the anterior aspect of the temporal lobe on the right, evidence of edema as sociated with contusion in this region as well. There is subtle hypodensity within the temporoparietal region on the right, which suggests nonspecifi c edema. Developing infarction cannot be excluded. There is diffuse cerebral edema with diminished moreland lcation diffusely. There is midline shift from right to left measuring about 6-7 mm at axial level of septum pellucidum from right to left. Midline shift is similar when compared to the 07/08/17 exam. IMPRESSION: 1. Stable to slightly enlarged intra-axial hematoma in the left cerebellar hemisphere with marked ma ss effect in the posterior fossa. This includes obliteration of the fourth ventricle and mass effect on the brain stem with findings suspicious for downward herniation. 2. Right temporal lobe contusion. Bifrontal hemorrhagic contusions. Scattered areas of extra-axial s ubarachnoid and subdural blood, primarily right-sided, with right to left midline shift of 6-7 mm. Ar eas of a developing infarction as evidenced by hypodensity on this exam are possibilities in the magdaleno on of the brain stem, left middle cerebellar peduncle and right temporal/occipital lobe. Dr. Lua made aware at 1030 hours on 07/11/17. Neurosurgical consultation was recommended at that ti me. CODE CR. POS: [facility]
--- NOTE | 2017-07-11 12:00 | PRG ---
DATE OF SERVICE: 07/11/2017 SUBJECTIVE: Mr. Rodrigez is third day into his hospitalization. His ICPs have now gone up into the 20 s and 30s and still it is satisfactory waveform. However, ICP monitors such as a [employer] bolt to beco me unreliable after few days and his ICPs in the last of couple days were in the single digits and lo w double digits. As such, I find the results of perhaps dubious and even when his ICP has been eleva reji, the patient has even woken up with vocalization. Again making me think that the numbers may be erroneously high. He is on propofol, fentanyl and vecuronium. His pupils are bilaterally essentiall y pinpoint due to the narcotics. I would like to do wean his sedation to really get an adequate exam and get a head CT today and I thought we will likely plan to remove his ICP monitor. As if the victor manuel ent is able to start waking up, I think that is excellent news. We had to stop the mannitol as yu nt has had increased serum osmolality not surprising and has even had a small increase in his creatin ine. However, unless the patient is clinically not improving at all, or his head CT demonstrates adi nous findings compared to prior scan, I do not think it necessary to pursue more aggressive surgical therapy such as EVD or hemicraniectomy, as again, the patient's exam has been quite agitated when the sedation is weaned and moving his extremities which I think is an excellent outcome given the patien t's head injury. We will follow up on the scan.
[2017-07-11] MEDS: Labetalol HCl 100 MG/20 ML VIAL SLOW IVP SCH ×2 (12:17→13:45)
[2017-07-11] MEDS ORDERED: Vecuronium 10 MG VIAL IV SCH (13:15)
[2017-07-11] MEDS: Sodium Chloride 1 GM TAB PO SCH ×2 (13:19→20:24)
--- NOTE | 2017-07-11 13:19 | PRG ---
DATE OF SERVICE: 07/11/2017 I repeated a head CT on Mr. Rodrigez this morning, it essentially is stable. His brain does overall ap pear edematous with bifrontal contusions and a right temporal contusion consistent with countercoup i njury and scattered subarachnoid and subdural hematoma. Although his blood burden appears to be stab le in addition his cerebellar hematoma appears to be slightly smaller. While the cisterns remain tig ht, his ICPs which were reading in the 20-30 range are now in the 12-14 mmHg range and I suspect his ICP monitor may not be reading accurately at this point and as such, I have asked the sedation turned off now. Now with the sedation off, he attempts to open his eyes to voice and briskly localizes in his 4 extremities requiring restraints. As such, Dr. Lua will place him on dexmedetomidine and cuauhtemoc l use labetalol to control hypertension. I have removed his ICP monitor as his exam I think is quite favorable regarding the fact that he localizes briskly with the sedation off and at a minimum opens his eyes to noxious stimulation and as I said, even to voice. He even at one point follow commands f or the nurse during this sedation holiday, but not for me. We will continue to follow his exam at th is point and I would not recommend placement of EVD at this point given the patient's improving exam.
[2017-07-11] MEDS: Metoclopramide HCl 10 MG/2 ML VIAL IVP SCH ×2 (13:20→22:12)
--- NOTE | 2017-07-11 13:54 | PRG ---
DATE OF SERVICE: 07/11/2017 SUBJECTIVE: This is a 51-year-old man who is post-admission day #3 status post apparent ground level fall sustaining a severe traumatic brain injury. Overnight, patient has developed worsening intracranial hypertension. He has also developed worsening hypoxemia requiring high FIO2 to maintain mid 90s, O2 saturation. Peak airway pressure was noted at upper 50s last night requiring patient to be pharmicologically paralyzed. Once on vecuronium continuous infusion, peak airway pressure decreased to low 30s. Chest x-ray last night did not reveal any pneumothorax or any significant acute lung injury. The patient has developed significant oliguria overnight. This has not responded to fluid resuscitation. Currently, patient is on bicarbonate infusion. PHYSICAL EXAMINATION: VITAL SIGNS: This morning included blood pressure 196/101 once sedation was placed on hold. Heart rate is 88, respiratory rate is 14. Maximum temperature in the last 24 hours is 98.6 degrees Fahrenheit, oxygen saturation 93% on FiO2 of 60% on mechanical ventilatory support. HEENT: Examination reveals pupils which are equal, round, and reactive to light at 2 mm bilaterally. The patient has no jugular venous distention noted. ICPs have been in the upper 30s to low 40s over the last 4 hours. HEART: Reveals regular rate and rhythm, no murmurs or gallops auscultated. LUNGS: Clear to auscultation bilaterally. Breathing is strict and unlabored. ABDOMEN: Soft, nontender and nondistended. Liver and spleen are nonpalpable below costal margins. EXTREMITIES: Reveals 2+ radial and pedal pulses bilaterally. No ankle edema is present. NEUROLOGIC: The patient remains in coma. Examination however is suboptimal as the pharmacologic paralysis is still yet to wean off. LABORATORY DATA AND IMAGING DATA: Today includes metabolic profile; sodium 133 , potassium is 5.1, chloride is 104, bicarbonate 17, BUN 35, creatinine is 4.77 , glucose is 140. Serum osmolality is 327. Phosphorus is 4.5. Chest x-ray today reveals bilateral perihilar opacification slightly greater in contrast to that obtained from yesterday. No significant pleural effusion is noted. There is no pneumothorax noted. IMPRESSION: 1. Post-injury day #3 status post fall. 2. Acute severe traumatic brain injury with multiple intracranial hemorrhages. 3. Cerebral edema. 4. Acute posttraumatic respiratory failure. 5. Acute anuric renal failure. 6. Aspiration Pneumonia PLAN: 1. Urgent repeat of brain CT scan and further evaluation per Neurosurgery. 2. Continue with full mechanical ventilatory support at this time until intracranial anatomy has been evaluated by CT scanning. 3. Continue with bicarbonate infusion. Maintaining adequate fluid resuscitation in anticipation that urinary function will improve. 4. Avoid all nephrotoxic agents. Above findings and plan has been discussed with the patient's family at bedside. I have obtained consents to place a central venous catheter in order to monitor this patient's central venous pressure using this to guide our fluid resuscitation. Total critical care time : 45 minutes HIRAL
[2017-07-11] MEDS: cefTRIAXone\\ROCEPHIN 2 GM in Sodium Chloride 0.9% 100 ML IVPB SCH (15:14)
[2017-07-11 17:52] LABS: Actual Bicarbonate (HCO3a) 23.9 mEq/L (22-26); Base Excess (BEa) -2.4 mEq/L (0 (+/-) 2.5); CO2 Tension 47.4 mmHg (35.0-45.0); Hemoglobin (Hb) 11.3 g/dL (14.0-18.0); O2 Tension (PaO2) 79.8 mmHg (80.0-100.0); pH, Arterial 7.32 (7.35-7.45)
[2017-07-11 17:53] LABS: Puncture Site RRA
--- NOTE | 2017-07-11 19:21 | OP ---
DATE OF PROCEDURE: 07/11/2017 PREOPERATIVE DIAGNOSES: 1. Severe traumatic brain injury. 2. Acute hypoxemic respiratory failure. 3. Aspiration pneumonia. POSTOPERATIVE DIAGNOSES: 1. Acute severe traumatic brain injury. 2. Acute hypoxemic respiratory failure. 3. Aspiration pneumonia. PROCEDURES PERFORMED: 1. Placement of left subclavian triple-lumen central venous catheter. 2. Fiberoptic bronchoscopy with bronchioalveolar lavage. INDICATIONS FOR PROCEDURE: A 51-year-old man who apparently sustained severe acute traumat ic brain injury following a fall. The patient is on full mechanical ventilatory support. He aspirat ed at the scene of the fall prior to elective intubation for transport. The patient has developed wo rsening hypoxemic respiratory failure. He has required ongoing fluid resuscitation with acute anuric renal failure. Decision was made to place a triple-lumen central venous catheter for hemodynamic mo nitoring as well as performed fiberoptic bronchoscopy both for diagnostic and therapeutic purposes. DESCRIPTION OF PROCEDURE: Informed consent obtained from the patient's . The patient is placed in supine position. Left chest wall was sterilely prepped and draped in the usual fashion. The skin below the left clavicle was anesthetized with 1% lidocaine. The left subclavian vein was cannulated with an 18 gauge introducer needle returning dark venous blood. The guidewire was passed through th e needle and advanced into the left subclavian vein without resistance. Needle was withdrawn over th e guidewire. A stab incision is made adjacent to the guidewire using an 11 scalpel. Dilator was pas sed over the guidewire dilating subcutaneous tissues. Dilator was removed and a triple-lumen central venous catheter was advanced over the guidewire and placed in the left subclavian vein without resis tance and stopping at the 18 cm jovanny. The guidewire is removed. Dark venous blood was aspirated fro m all 3 ports which were individually flushed with saline. Catheter was secured to the anterior ches t wall using 3-0 silk suture at 2 points. Biopatch and sterile dressings was applied. Portable ches t x-ray confirmed proper placement of the catheter with no pneumothorax present. I then turned my at tention to the bronchoscopy. At this juncture, patient was placed on 100% FiO2 on full mechanical ve ntilator support. Fiberoptic bronchoscope was introduced through the previous endotracheal tube and advanced to visualize the jessy. The tip of the endotracheal tube was withdrawn to 4 cm above the c anna. The scope was advanced first to the left upper and left lower lobes. Thick purulent secretio ns were irrigated with saline and evacuated for overall transmission to microbiology. Once pulmonary toilet was completed here, scope was withdrawn advanced to the right upper lobe, bronchus intermediu s and finally right lower lobe. Again some gross purulent secretions were irrigated and cleared with suction. There were minor mucus plugs which were evacuated. The patient tolerated this procedure w ithout any apparent complications. No evidence of pulmonary edema present.
[2017-07-12] MEDS: Propofol 1,000 MG/100 ML VIAL IV PRN ×8 (00:30→22:53)
[2017-07-12] MEDS: fentaNYL Citrate/PF 2,000 MCG in Sodium Chloride 0.9% 60 ML IV SCH ×2 (01:32→15:32)
[2017-07-12] MEDS: Metoclopramide HCl 10 MG/2 ML VIAL IVP SCH ×3 (05:41→21:06)
[2017-07-12] MEDS: Oxazepam 10 MG CAP PO SCH ×3 (05:41→21:06)
--- NOTE | 2017-07-12 06:54 | PRG ---
DATE OF SERVICE: 07/11/2017 SUBJECTIVE: The patient was seen and examined, still on life support. Noted with the following sophia l signs. PHYSICAL EXAMINATION: VITAL SIGNS: Blood pressure 122/72-158/82, respiratory rate of 20 with a heart rate of 75, O2 sat 95 % on 85% FIO2 with PEEP of 10. CARDIOVASCULAR: First and second heart sounds were heard. RESPIRATORY SYSTEM: Revealed vented sounds. DIGESTIVE SYSTEM: Revealed obese abdomen. EXTREMITIES: Showed some peripheral edema. NEUROLOGIC: The patient is not responsive, likely possibly medical induced. LABORATORY INVESTIGATIONS: Concerning for creatinine of 4.77 with BUN of 35. IMPRESSION: 1. Hemodynamically-mediated acute tubular necrosis which seems to be progressively getting worse. 2. Overall, hypervolemia at this point. 3. Cardiopulmonary failure in the context of . 4. Intracranial bleed, status post fall. PLAN: 1. I did have extensive discussion with the patient's and daughter informing them that if the r enal function continues to decline at this rate, we might be looking at renal replacement therapy (he modialysis within the next 24-48 hours unless the renal function comes around within this time frame) this modality of treatment likely to be started on a temporary basis and the clinical course would d ictate the line of action that will be taken down the road. 2. Avoid potentially nephrotoxic agents and renally dose all medications. 3. We will be very cautious with IV fluid as the patient seems at this point overall fluid overloade d. 4. Further management to be dependent on the clinical course.
[2017-07-12 06:57] LABS: Band 7 % (5-11); Eosinophils 2 % (0-10); Hemoglobin 10.6 g/dL (14.0-18.0); MDiff Complete? YES; Mean Corpuscular HGB CONC 32.3 g/dL (32.0-36.0); Mean Platelet Volume 7.9 fL (7.4-10.4); Monocytes 10 % (0-10); Neutrophil 80 % (42-75); Platelet Count 154 thou/uL (130-400); RBC Distribution Width 11.8 % (11.5-14.5); Red Blood Cell (RBC) Count 3.23 mill/uL (4.70-6.10); White Blood Cell (WBC) Count 13.4 thou/uL (4.8-10.8)
[2017-07-12 07:17] LABS: Anion Gap 17 mmol/L (10-20); BUN (Urea Nitrogen) 48 mg/dL (8.4-25.7); BUN/Creatinine Ratio 7.34; Calc. Creatinine Clearance 18 mL/min (70-130); Calcium 7.9 mg/dL (7.8-10.44); Carbon Dioxide 23 mmol/L (22-29); Chloride 102 mmol/L (98-107); Estimated GFR-MDRD 9; Glucose 119 mg/dL (70-105); Magnesium 1.7 mg/dL (1.6-2.6); Phosphorus 7.2 mg/dL (2.3-4.7); Potassium 4.4 mmol/L (3.5-5.1); Sodium 138 mmol/L (136-145)
[2017-07-12] MEDS: Pantoprazole 40 MG VIAL IVP SCH (08:33)
[2017-07-12] MEDS: Polyethylene Glycol 3350 17 GM Packet PER TUBE SCH (08:33)
[2017-07-12] MEDS: Folic Acid 1 MG TAB PO SCH (08:34)
[2017-07-12] MEDS ORDERED: Heparin 10,000 UNITS/ 10 ML VIAL ONE (09:17)
--- NOTE | 2017-07-12 10:24 | PRG ---
DATE OF SERVICE: 07/12/2017 This is Michael Thomas PA-C dictating for Dr. Cornelio Nogueira, subsequent and patient's progress note, which 15 minutes, in which greater than 50% of the exam was spent in counseling and coordinating victor manuel ent's care. The remainder of the exam was spent in review of patient's medical records and formulati on of treatment plan. SUBJECTIVE: Mr. Rodrigez is now hospital day #4, having sustained a fall with intracranial hemorrhage and bifrontal contusions. He continues to have some oxygenation issues as well as decreased kidney f unction. Trauma Services is directing his oxygenation issues. The patient did undergo a bronchoscop y yesterday as well as a central line placement. Nephrology has been consulted and the patient will more than likely be undergoing dialysis as per their direction. In regards the patient's neurologic status is both ICP monitor was removed yesterday and after a few hours off sedation and was moving al l extremities equally with equal and reactive pupils. He did attempt to open his eyes, but does not formally follow commands. He has been on fentanyl and propofol overnight, which significantly limits the patient's neurologic exam, although his pupils are equal this morning. We will continue to allo w his sedation so that his oxygenation issues will improve and hopefully we will start to be able to wake him up tomorrow to get another neuro exam. Please call with any questions or concerns.
[2017-07-12] MEDS: Sodium Bicarbonate 150 MEQ in Dextrose 5% in Water 1,000 ML IV SCH (10:55)
--- NOTE | 2017-07-12 11:35 | PRG ---
DATE OF SERVICE: 07/12/2017 HISTORY OF PRESENT ILLNESS: Mr. Rodrigez remains in coma. He is sedated on full mechanical ventilato r support. He is requiring pretty high FiO2, currently at 85% with a PEEP of 10 on bilevel. This ac hieves oxygen saturation in the low to mid 90s. Urinary output remains marginal. The patient has been intolerant to tube feeds due to high residuals. PHYSICAL EXAMINATION: VITAL SIGNS: Today includes blood pressure 152/68, pulse is 90, respiratory rate is 18, maximum temp erature in the last 24 hours is 99.4 degrees Fahrenheit, oxygen saturation currently at 93%. HEENT: Reveals pupils which are equal, round, and sluggishly reactive at 2 mm bilaterally. He has m ild bilateral sclerae edema present. NECK: No jugular venous distention is noted. HEART: Reveals regular rate and rhythm, no murmurs or gallops auscultated. LUNGS: Reveals scattered bibasilar rhonchi. Breathing is otherwise regular and unlabored. ABDOMEN: Soft, nontender and nondistended. Bowel sounds in all 4 quadrants are hypoactive. EXTREMITIES: Reveals 2+ radial and pedal pulses bilaterally. He has bilateral ankle and pretibial e juliana present. NEUROLOGIC: Suboptimal. Patient is in coma. When light on sedation, his Arlen coma scale is E2 M 4 V1T. PERTINENT LABORATORY FINDINGS: Today includes CBC with 13,400 white blood cells, hemoglobin 10.6, he matocrit is 33.0, platelet count is 154,000. Metabolic profile: Sodium 138, potassium is 4.4, chloride is 102, bicarbonate 23, BUN 48, creatinine is 6.54, glucose is 119. Phosphorus is elevated at 7.2, magnesium is 1.7. IMPRESSION: 1. Acute severe traumatic brain injury, stable. 2. Acute hypoxemic posttraumatic respiratory failure. 3. Worsening acute renal failure, likely secondary to contrast nephropathy. 4. Acute hypomagnesemia. PLAN: 1. Continue to maintain sedation until the patient is neurologically and hemodynamically stable. 2. I discussed with Nephrology. The patient definitely needs dialysis as he is currently fluid over loaded, which is impeding his oxygenation. 3. Correct abnormal electrolytes at dialysis. The above findings and plan have been discussed with the patient's family. They indicated understand ing of information given. I will give consideration for placement of IVC filter as the patient likel y has a contraindication for anticoagulation. Total critical care time is 50 minutes.
--- NOTE | 2017-07-12 13:22 | OP ---
DATE OF PROCEDURE: 07/12/2017 SURGEON: Chana Chapman M.D. PROCEDURE: Right femoral dialysis catheter placement. MEDICATION: 2% lidocaine. DETAILS OF PROCEDURE: After informed consent was obtained, the patient was prepped and draped in a s terile fashion. The right femoral vein was approached in layers under real time ultrasound guidance. After serially dilatation and a Trialysis catheter was placed over the wire and all the ports flush ed very well. The patient tolerated the procedure very well with no immediate postop complications. It is good for use.
[2017-07-12 14:02] LABS: HBSAB Concentration 0.43 mIU/mL; Hep B Surf AB Non-Reactive (NonReactive)
[2017-07-12] MEDS: Sodium Chloride 1 GM TAB PO SCH ×2 (14:04→21:06)
--- NOTE | 2017-07-12 14:45 | OP ---
DATE OF PROCEDURE: 07/12/2017 PREOPERATIVE DIAGNOSES: 1. Acute severe traumatic brain injury. 2. Acute renal failure. 3. Acute respiratory failure. POSTOPERATIVE DIAGNOSES: 1. Acute severe traumatic brain injury. 2. Acute renal failure. 3. Acute respiratory failure. PROCEDURES PERFORMED: Placement of right radial arterial catheter. INDICATIONS FOR PROCEDURE: A 51-year-old man who sustained severe acute traumatic brain injury follo wing a fall. The patient has also developed acute renal failure requiring hemodialysis. He remains on full mechanical ventilator support with hypoxemic respiratory failure. Decision was made to place an arterial catheter for continuous blood pressure monitoring. DESCRIPTION OF PROCEDURE: Informed consent obtained from the patient's at bedside. The right f orearm sterilely prepped and draped in the usual fashion. The right radial artery was palpated at th e wrist and then cannulated with an introducer needle returning pulsatile blood. A guidewire was pas sed through the needle and advanced into the right radial artery without resistance. The needle was withdrawn over the guidewire. A 20 gauge arterial catheter was then advanced over the guidewire and placed in the right radial artery without resistance. The guidewire was removed. Catheter was connected to a transducer which we noted proper arterial wav eforms in place. Catheter was secured to the wrist using 3-0 silk suture. Sterile dressings was donna lied. The patient tolerated this procedure without any apparent complications and remains in critica l but stable condition.
--- NOTE | 2017-07-12 16:37 | ULT ---
BILATERAL LOW EXTREMITY VENOUS DOPPLER ULTRASOUND: Date: 07-12-17 Comparison: None. History: Head injury. Intracranial hemorrhage, prolonged bedrest. Bilateral lower extremity edema/swe lling. Evaluate for DVT. Technique: Multiplanar grayscale sonographic imaging of the venous structures of bilateral lower extr emities are obtained with color flow and spectral analysis. FINDINGS: Common femoral veins, greater saphenous veins, profunda femoral veins, femoral veins, popliteal veins , and posterior tibial veins are patent. There is normal blood flow, augmentation, and compression wi thin the deep venous system of bilateral lower extremities. No evidence for deep venous thrombosis on either side. IMPRESSION: No evidence for deep venous thrombosis of either lower extremity. POS: [facility]
[2017-07-12] MEDS ORDERED: Vecuronium 10 MG VIAL IV SCH (17:15)
[2017-07-12] MEDS ORDERED: Sterile Water 10 ML ONE (17:32)
[2017-07-12] MEDS: hydrALAZINE 20 MG/ML VIAL SLOW IVP PRN (17:39)
[2017-07-12 18:03] LABS: HBSAg Index 0.16 S/CO (0-0.99); Hep B Surf Ag Non-Reactive S/CO (NonReactive)
[2017-07-12 18:09] LABS: Hep B Core Total Ab Non-Reactive (NonReactive)
[2017-07-12] MEDS: cefTRIAXone\\ROCEPHIN 2 GM in Sodium Chloride 0.9% 100 ML IVPB SCH (18:51)
--- NOTE | 2017-07-13 01:51 | PRG ---
DATE OF SERVICE: 07/12/2017 SUBJECTIVE: The patient was seen and examined, still on life support, somewhat hypertensive, endotra cheal tube in place. OBJECTIVE: CARDIOVASCULAR SYSTEM: First and second heart sounds were heard. RESPIRATORY SYSTEM: Revealed vented sounds. DIGESTIVE SYSTEM: Revealed a tense abdomen on palpation with positive bowel sounds. EXTREMITIES: Showed some peripheral edema. NEUROLOGIC: The patient is sedated and intubated. LABORATORY INVESTIGATIONS: Showed a hemoglobin of 10.6. Chemistry showed BUN of 48 with a creatinin e of 6.54, phosphorus of 7.2. IMPRESSION: 1. Acute tubular necrosis. This is likely multifactorial including, but not limited to the followin g, contrast-induced nephropathy exacerbated by a massive diuresis that the patient did undergo under mannitol usage. 2. Cardiopulmonary failure. 3. Intracranial bleed, status post fall. PLAN: 1. We will continue renal supportive measures and continue with IV fluid resuscitation. 2. We will initiate hemodialysis today. Plan has already been finalized for the placement of a dial ysis catheter after which the patient can initiate dialysis with emphasis on ultrafiltration.
[2017-07-13] MEDS: Propofol 1,000 MG/100 ML VIAL IV PRN ×5 (02:03→23:30)
[2017-07-13] MEDS: fentaNYL Citrate/PF 2,000 MCG in Sodium Chloride 0.9% 60 ML IV SCH ×2 (02:07→14:57)
[2017-07-13 05:27] LABS: #Eosinphils 0.1 thou/uL (0.0-0.7); #Lymphocytes 0.6 thou/uL (1.20-3.40); #Monocytes 1.5 thou/uL (0.11-0.59); #Neutrophils 9.1 thou/uL (1.40-6.50); %Eosinophils 1.2 % (0.0-10.0); %Monocytes 13.4 % (0.0-10.0); %Neutrophils 80.4 % (42.0-75.0); Hemoglobin 9.8 g/dL (14.0-18.0); Mean Corpuscular HGB CONC 32.8 g/dL (32.0-36.0); Mean Corpuscular Hemoglobin 33.1 pg (27.0-31.0); Platelet Count 139 thou/uL (130-400); RBC Distribution Width 11.8 % (11.5-14.5); Red Blood Cell (RBC) Count 2.96 mill/uL (4.70-6.10); White Blood Cell (WBC) Count 11.3 thou/uL (4.8-10.8)
[2017-07-13] MEDS: Metoclopramide HCl 10 MG/2 ML VIAL IVP SCH ×3 (05:36→21:37)
[2017-07-13] MEDS: Oxazepam 10 MG CAP PO SCH ×3 (05:36→21:38)
[2017-07-13 06:23] LABS: Albumin 2.9 g/dL (3.5-5.0); Anion Gap 19 mmol/L (10-20); BUN (Urea Nitrogen) 55 mg/dL (8.4-25.7); BUN/Creatinine Ratio 8.66; Calc. Creatinine Clearance 19 mL/min (70-130); Calcium 8.3 mg/dL (7.8-10.44); Carbon Dioxide 24 mmol/L (22-29); Chloride 100 mmol/L (98-107); Estimated GFR-MDRD 9; Glucose 103 mg/dL (70-105); Phosphorus 7.1 mg/dL (2.3-4.7); Potassium 4.2 mmol/L (3.5-5.1); Sodium 139 mmol/L (136-145)
[2017-07-13 07:10] LABS: Actual Bicarbonate (HCO3a) 23.8 mEq/L (22-26); Base Excess (BEa) -0.5 mEq/L (0 (+/-) 2.5); CO2 Tension 37.7 mmHg (35.0-45.0); Hematocrit-ABG 29.8 % (42.0-52.0); Hemoglobin (Hb) 9.7 g/dL (14.0-18.0); O2 Tension (PaO2) 112.4 mmHg (80.0-100.0); pH, Arterial 7.42 (7.35-7.45)
[2017-07-13 07:17] LABS: ALV-art Gradient 367.725 (0-20); Puncture Site ALINE
[2017-07-13] MEDS: niCARdipine HCl 25 MG in Sodium Chloride 0.9% 250 ML 240 ML IVPB SCH ×2 (08:45→12:12)
--- NOTE | 2017-07-13 09:06 | RAD ---
RADIOGRAPH ABDOMEN 1 VIEW: Date: 07/13/17/ Time: 0833 hours HISTORY: 51-year-old male status post NG tube placement. FINDINGS: Nasogastric tube distal tip is in the left side of the abdomen, in the expected location of the mid b henrietta of the decompressed stomach. IMPRESSION: NG tube in left upper quadrant. POS: [facility]
[2017-07-13] MEDS: Sodium Chloride 1 GM TAB PO SCH ×2 (10:02→21:37)
[2017-07-13] MEDS: Bisacodyl 10 MG SUPP PR SCH (10:06)
[2017-07-13] MEDS: Polyethylene Glycol 3350 17 GM Packet PER TUBE SCH (10:06)
[2017-07-13] MEDS: Folic Acid 1 MG TAB PO SCH (10:06)
[2017-07-13] MEDS: Pantoprazole 40 MG VIAL IVP SCH (10:06)
[2017-07-13] MEDS ORDERED: Heparin 10,000 UNITS/ 10 ML VIAL ONE (10:12)
--- NOTE | 2017-07-13 10:44 | PRG ---
DATE OF SERVICE: 07/13/2017 SUBJECTIVE: Mr. Rodrigez is a 51-year-old man status post apparent fall, who sustained a severe acute traumatic brain injury. The patient remains on full mechanical ventilator support. He was sedated o vernight in order to tolerate bilevel with a PEEP of 10. Oxygenation has been his issue; however, si nce been on bilevel with the increase PEEP, we will be able to wean from FiO2 of 85% yesterday to now 65% achieving O2 saturation of 96%. When on sedation holiday, Arlen coma scale is noted at E1 M4 V1T. The patient tolerated hemodialys is yesterday with 2.7 liters of fluid loss. He remains on bowel rest. He was unable to tolerate tub e feeds due to high residuals. He has had no bowel movement since admission. Blood pressure is cont rolled now with Nipride, which is being changed this morning to nicardipine by continuous infusion, m aintaining systolic blood pressure between 140 and 160. Urinary output has been in an average of 0.3 mL per kilogram per hour. OBJECTIVE: VITAL SIGNS: Current vital signs include blood pressure 138/74, pulse 90, respiratory rate is 18, ma ximum temperature in the last 24 hours is 99.7 degrees Fahrenheit, oxygen saturation is currently at 98%. HEENT: Reveals pupils which are equal, round, and reactive to light at 3 mm bilaterally. He has no jugular venous distention noted. CARDIOVASCULAR: Heart reveals regular rate and rhythm. He has no murmurs or gallops auscultated. LUNGS: Clear to auscultation bilaterally. Breathing is regular and unlabored. ABDOMEN: Soft and obese. Bowel sounds in all four quadrants appear normoactive. EXTREMITIES: Reveals 2+ radial and pedal pulses bilaterally. He has bilateral 2+ pitting ankle cash a present. LABORATORY DATA: Today includes CBC with 11,300 white blood cells, hemoglobin 9.8, hematocrit is 29. 9, platelet count is 139,000. Metabolic profile: Sodium 139, potassium is 4.2, chloride is 100, bic arbonate 24, BUN 55, creatinine is 6.35, glucose 103, phosphorus 7.1. Arterial blood gas pH 7.42, pC O2 38, pO2 112, oxygen saturation 98%, base excess negative 0.5. Pulmonary cultures from 07/12/2017 is positive for many gram positive rods, a few budding yeast, few gram positive cocci in pairs and cl usters with no epithelial cells. This is consistent with a known pulmonary aspiration. IMPRESSION: 1. Acute severe traumatic brain injury. The patient remains in coma. 2. Aspiration pneumonia. 3. Acute respiratory failure. 4. Acute oliguric renal failure. 5. Hyperphosphatemia. PLAN: 1. We will obtain a repeat head CT scan as patient is currently unavailable for adequate neurologica l examination. This is necessary because the patient is requiring sedation in order to maximize his ventilatory support to improve oxygenation. 2. We will continue with broad-spectrum antibiotics to treat the aspiration pneumonia. 3. We will initiate trophic tube feeds and the patient is unable to tolerate this, we may consider T PN in the next day or two. 4. The patient currently does not have any evidence of lower extremity venous thromboembolism. Mendez amador, given the contraindication for anticoagulation, we will consider IVC filter placement in the nex t day or two. The above findings and plan has been discussed with the patient's family and they indicated understan ding of information given. I answered their questions. Total critical care time is 55 minutes.
--- NOTE | 2017-07-13 10:51 | CT ---
CT BRAIN: History: Intracranial hemorrhage. Technique: Noncontrast enhanced CT images were obtained. Date: 07-13-17 Comparison: 07-11-17 FINDINGS: There has been removal of the right frontal intracranial pressure monitor. There continues to be some right to left midline shift. This is less pronounced than on the previous comparison exam, now measu ring approximately 3.2 mm compared to the previous measurement of 6.6 mm. The left intracerebellar hemorrhage is unchanged. Bilateral frontal lobe pulmonary parenchymal contus ion is seen. Subarachnoid blood is seen in both frontal lobes as well as the right Sylvian fissure as well as the brain contusion seen in the anterior aspect of the right temporal lobe. POS: [facility]
[2017-07-13] MEDS: niCARdipine HCl 50 MG in Sodium Chloride 0.9% 250 ML 230 ML IVPB SCH ×2 (14:57→20:49)
[2017-07-13] MEDS: cefTRIAXone\\ROCEPHIN 2 GM in Sodium Chloride 0.9% 100 ML IVPB SCH (16:11)
[2017-07-14] MEDS: niCARdipine HCl 50 MG in Sodium Chloride 0.9% 250 ML 230 ML IVPB SCH ×2 (01:31→13:40)
--- NOTE | 2017-07-14 01:31 | PRG ---
DATE OF SERVICE: 07/13/2017 SUBJECTIVE: The patient was seen and examined, still on life support. Tolerated hemodialysis with u ltrafiltration of about 4 liters today, noted with the following vital signs. PHYSICAL EXAMINATION: VITAL SIGNS: Blood pressure 159/77, pulse 100, O2 saturation 97%, on ventilator. HEENT: Remarkable for endotracheal tube in place. CARDIOVASCULAR: First and second heart sounds were heard. RESPIRATORY: Reveals vented sounds. ABDOMEN: Digestive system revealed obese abdomen. EXTREMITIES: Showed no significant peripheral edema. LABORATORY INVESTIGATIONS: Showed a creatinine of 6. IMPRESSION: Acute tubular necrosis in the context of contrast exposure compounded by diuretic regime n; in this case, mannitol. PLAN: 1. We will continue with hemodialysis with ultrafiltration as tolerated by hemodynamics. 2. Renally dose all medications and avoid potentially nephrotoxic agents, given the possibility of r enal recovery.
[2017-07-14] MEDS: Propofol 1,000 MG/100 ML VIAL IV PRN ×4 (03:50→18:52)
[2017-07-14] MEDS: Metoclopramide HCl 10 MG/2 ML VIAL IVP SCH ×3 (05:14→20:21)
[2017-07-14] MEDS: Oxazepam 10 MG CAP PO SCH ×3 (05:14→20:22)
[2017-07-14 05:32] LABS: Anion Gap 25 mmol/L (10-20); BUN (Urea Nitrogen) 68 mg/dL (8.4-25.7); BUN/Creatinine Ratio 9.91; Calc. Creatinine Clearance 17 mL/min (70-130); Calcium 8.6 mg/dL (7.8-10.44); Carbon Dioxide 20 mmol/L (22-29); Chloride 99 mmol/L (98-107); Estimated GFR-MDRD 8; Glucose 118 mg/dL (70-105); Phosphorus 10.7 mg/dL (2.3-4.7); Potassium 4.8 mmol/L (3.5-5.1); Sodium 139 mmol/L (136-145)
[2017-07-14 08:48] LABS: Actual Bicarbonate (HCO3a) 19.7 mEq/L (22-26); Base Excess (BEa) -4.6 mEq/L (0 (+/-) 2.5); CO2 Tension 33.6 mmHg (35.0-45.0); O2 Tension (PaO2) 86.3 mmHg (80.0-100.0); pH, Arterial 7.39 (7.35-7.45)
[2017-07-14 08:49] LABS: Analyzer IN Cardio OR; Hemoglobin (Hb) 10.6 g/dL (14.0-18.0); Puncture Site ALINE
[2017-07-14] MEDS: Folic Acid 1 MG TAB PO SCH (08:57)
[2017-07-14] MEDS: Bisacodyl 10 MG SUPP PR SCH (08:57)
[2017-07-14] MEDS: Pantoprazole 40 MG VIAL IVP SCH (08:58)
[2017-07-14] MEDS: Polyethylene Glycol 3350 17 GM Packet PER TUBE SCH (08:58)
--- NOTE | 2017-07-14 09:00 | PRG ---
DATE OF SERVICE: 07/14/2017 This is a 15 minute subsequent inpatient progress note. Mr. Rodrigez is now hospital day #8, having moreland stained a fall and multiple cerebral contusions. The patient has continued to require sedation for o xygenation purposes and is currently undergoing hemodialysis for his acute kidney injury. In regards to the patient's neurologic status, he has remained on fentanyl and propofol. When this is weaned h e does attempt to open his eyes, though does not formally follow commands. He is not currently movin g any of his extremities again, however, this is not surprising given the fact that he has been on pr olonged sedation. There was a repeat head CT that was done yesterday that was stable. At this time, the patient does not require neurosurgical intervention as his CTs have remained stable and his neur ologic exam has also remained stable. We will continue to monitor the patient's neurologic exam, but understand that his oxygenation remains an issue as well as his kidney issues. We will remain avail able. Please call with any questions or concerns regarding the patient's neurologic status.
[2017-07-14] MEDS: Sodium Chloride 1 GM TAB PO SCH ×2 (09:09→20:22)
[2017-07-14 10:37] LABS: Base Excess (BEa) -1.3 mEq/L (0 (+/-) 2.5); CO2 Tension 32.2 mmHg (35.0-45.0); Hemoglobin (Hb) 11.3 g/dL (14.0-18.0); O2 Tension (PaO2) 104.2 mmHg (80.0-100.0); pH, Arterial 7.45 (7.35-7.45)
[2017-07-14 10:38] LABS: Puncture Site ALINE
[2017-07-14] MEDS ORDERED: Heparin 1,000 UNITS/ML VIAL ONE (11:11)
[2017-07-14] MEDS: fentaNYL Citrate/PF 2,000 MCG in Sodium Chloride 0.9% 60 ML IV SCH (11:26)
--- NOTE | 2017-07-14 12:49 | PRG ---
DATE OF SERVICE: 07/14/2017 SUBJECTIVE: Mr. Rodrigez is sedated on mechanical ventilator support. He was still requiring 75% FiO2 since yesterday with a PEEP of 10 on bilevel and achieving oxygen saturation in the mid to upper 90s . Neurologically speaking he has remained in a coma, but stable. He is achieving less than 10 mL per h our urinary output. He has been on deescalating doses of nicardipine to maintain blood pressure betw een 140 and 160. He tolerated of 4 kilograms weight loss from hemodialysis yesterday. OBJECTIVE: VITAL SIGNS: Today includes blood pressure 145/65, pulse is 92, respiratory rate is 18, maximum temp erature in the last 24 hours is 99.5 degrees Fahrenheit, oxygen saturation is 95% on FiO2 of 75%. HEENT: Reveals pupils which are equally round, and reactive to light at 4 mm bilaterally. He has no jugular venous distention noted. HEART: Reveals regular rate and rhythm, no murmurs or gallops auscultated. CHEST: His lungs are clear to auscultation bilaterally. His breathing is regular and unlabored. ABDOMEN: His abdomen is soft and moderately distended. He has bowel sounds in all 4 quadrants. EXTREMITIES: There are 2+ radial and pedal pulses bilaterally. He has decreasing bilateral pitting ankle edema present. LABORATORY DATA: Today includes metabolic profile: Sodium 139, potassium is 4.8, chloride is 99, bi carbonate 20, BUN 68, creatinine is 6.86, glucose is 118, phosphorus is elevated at 10.7. Arterial b lood gas today; pH 7.39, pCO2 of 33.6, pO2 86, oxygen saturation 97%, base excess negative 4.6. This was on FiO2 of 75%. IMPRESSION: 1. Acute severe traumatic brain injury, stable. 2. Acute posttraumatic respiratory failure. 3. Acute aspiration pneumonia with acute respiratory distress syndrome. 4. Acute oliguric renal failure. 5. Acute hyperphosphatemia secondary to acute renal failure. PLAN: 1. Continue sedation. The patient will be placed on pressure control ventilation with inverse I:E r atio to maximize oxygenation in order to facilitate weaning on the fraction of inspired oxygen. 2. Initiate enteral nutritional supplementation via the orogastric tube. Continue with broad spectr um antibiotic therapy to cover the polymicrobial aspiration pneumonia. 3. Once the FiO2 has been weaned down to 50% we will attempt to wean the PEEP and if successful with weaning to a PEEP of 8, we will then at that time convert to a conventional mechanical ventilator [place] pport and also initiate sedation weaning. The above findings and plan discussed with the patient's family at bedside. They both indicated unde rstanding of information given. I answered their questions. Total critical care time is 45 minutes.
[2017-07-14] MEDS: cefTRIAXone\\ROCEPHIN 2 GM in Sodium Chloride 0.9% 100 ML IVPB SCH (17:16)
[2017-07-15] MEDS: fentaNYL Citrate/PF 2,000 MCG in Sodium Chloride 0.9% 60 ML IV SCH (04:02)
[2017-07-15] MEDS: Propofol 1,000 MG/100 ML VIAL IV PRN (05:17)
[2017-07-15] MEDS: Oxazepam 10 MG CAP PO SCH (05:17)
[2017-07-15] MEDS: Metoclopramide HCl 10 MG/2 ML VIAL IVP SCH ×3 (05:18→22:00)
[2017-07-15 05:46] LABS: Anion Gap 25 mmol/L (10-20); BUN (Urea Nitrogen) 92 mg/dL (8.4-25.7); Calc. Creatinine Clearance 17 mL/min (70-130); Calcium 8.9 mg/dL (7.8-10.44); Carbon Dioxide 20 mmol/L (22-29); Chloride 98 mmol/L (98-107); Estimated GFR-MDRD 8; Glucose 114 mg/dL (70-105); Potassium 5.3 mmol/L (3.5-5.1); Sodium 138 mmol/L (136-145)
--- NOTE | 2017-07-15 08:29 | PRG ---
DATE OF SERVICE: 07/15/2017 Mr. Rodrigez is a 51-year-old male with traumatic brain injury. He is day 9 from having sustained a fa ll and multiple cerebral contusions. He has continued to require sedation for oxygenation purposes. The trauma team is limiting his sedation vacation holidays. One sedation vacation holiday per shift is required to check his neurologic status so I was not able to get a full physical exam [facility] that shows they have remained stable and his neurologic function when off of the sedation holi day is unchanged. We will continue to monitor the patient's neurologic exam once he goes onto a tan tion vacation. We will remain available. If there are any questions, please feel free to contact Neurosurgery. As a review overnight his bloo d pressure was 153/72. He is afebrile, heart rate was 92 map was 88. There have been no acute event s overnight.
[2017-07-15] MEDS: Folic Acid 1 MG TAB PO SCH (09:17)
[2017-07-15] MEDS: Polyethylene Glycol 3350 17 GM Packet PER TUBE SCH (09:17)
[2017-07-15] MEDS: Bisacodyl 10 MG SUPP PR SCH (09:17)
[2017-07-15] MEDS: Pantoprazole 40 MG VIAL IVP SCH (09:17)
[2017-07-15] MEDS: Sodium Chloride 1 GM TAB PO SCH ×2 (09:21→21:00)
--- NOTE | 2017-07-15 09:40 | PRG ---
DATE OF SERVICE: 07/15/2017 I saw Mr. Rodrigez this morning. His continuous fentanyl drip and propofol infusions were stopped abou t 45 minutes to 1 hour before arriving in the room. Mr. Rodrigez's examination when I see him this mor lisa is consistent with yesterday's examination per the nurses. With stimulus, Mr. Rodriegz opens his eyes. With more stimulation, opens them farther. His pupils are usually reactive. To painful stimu zev, I cannot appreciate much extremity motion except for perhaps the left lower this morning. CT ex amination done on the did not show significant progression from a CT done on . There are bif rontal contusions and there is a temporal contusion. There is a cerebellar hematoma. The midline sh ift is less than on admission. Mr. Rodrigez's sodium is 138 this morning. Compared to examination early in the week, Mr. Rodrigez is less reactive, because his kidneys are not f unctioning well and is due for dialysis today. The half-life of the sedation medications may be affe cted by his acute renal failure. Nonetheless, some concern about Mr. Rodrigez's neurological examinati on. My plan today is to ask the dialysis center here at the hospital to remove as much fluid as possible. If we can concentrate the plasma a bit, we can help with any brain swelling that may be happening. His sodium of 138 is good and that it is better than it was a few days back, but could even be highe r, in my view. Finally, if there is any chance to do continuous dialysis, then the fluid shifts could be exacerbated brain injury might be improved. If there is no significant improvement after fluid withdrawal and w ith dialysis and decreased medication effect, then I may consider placement of an external ventricula r drain. We will get a CAT scan with BrainLAB protocol and will see if the ventricles are bigger duong n they were and if there reasonably easy to cannulate, this could be done in the ICU and if not, then we could use navigation assistance for it. Our team will be following carefully over the weekend.
[2017-07-15] MEDS: Ondansetron HCl/PF 4 MG/2 ML Vial IVP PRN (10:30)
--- NOTE | 2017-07-15 11:43 | PRG ---
DATE OF SERVICE: 07/14/2017 SUBJECTIVE: The patient was seen and examined, still on life support and noted with the following vi deisi signs. OBJECTIVE: VITAL SIGNS: Blood pressure 145/65, pulse of 80, respirations 20, 95% O2 sat on the vent. HEENT: . CARDIOVASCULAR SYSTEM: First and second heart sounds were heard. RESPIRATORY SYSTEM: Revealed vented sounds. DIGESTIVE SYSTEM: Revealed a benign abdomen with positive bowel sounds. EXTREMITIES: Showed peripheral edema. NEUROLOGIC: This patient is sedated and intubated. IMPRESSION: 1. Acute tubular necrosis, on hemodialysis. 2. Intracerebral bleed, status post mechanical fall. PLAN: We will continue hemodialysis with ultrafiltration to improve oxygenation. For now, the patie nt to remain on daily dialysis until such point that he is not dependent on ventilatory support.
--- NOTE | 2017-07-15 11:53 | PRG ---
DATE OF SERVICE: 07/15/2017 SUBJECTIVE: Mr. Rodrigez remains in coma on full mechanical ventilatory support. He was on pressure c ontrol ventilation overnight with inverse I:E ratio and PEEP of 10. His oxygenation has markedly imp roved since this maneuver. He is currently on FiO2 of 40%, O2 sat remain in upper 90s. He tolerates tube feeds at 10 mL per hour which is trophic. He has had no bowel movements. Neurologically speak ing, Arlen coma scale remains at E1 M4 V1t. OBJECTIVE: VITAL SIGNS: This morning includes blood pressure 154/81, pulse is 103, respiratory rate 24. Maximu m temperature in the last 24 hours is 99.6 degrees Fahrenheit, oxygen saturation is 99%. He is on ni cardipine drip. HEENT: Reveals pupils which are equally round and reactive to light at 3 mm bilaterally. He has no jugular venous distention noted. HEART: Reveals regular rate with mild sinus tachycardia, no murmurs or gallops auscultated. LUNGS: Clear to auscultation bilaterally. Breathing is regular and unlabored. ABDOMEN: Soft, nontender, and moderately distended. EXTREMITIES: Reveals 2+ radial and pedal pulses bilaterally. He has decreasing bilateral pitting an kle edema present. Note that patient tolerated hemodialysis yesterday with 5.1 liter fluid loss. LABORATORY DATA: Laboratory finding today includes CBC with 11,300 white blood cells, hemoglobin 9.8 , hematocrit is 29.9, and platelet count 139,000. Metabolic profile: Sodium 138, potassium is 5.3, chloride is 98, bicarbonate is 20, BUN 92, creatinine is 7.18, and glucose is 114. Phosphorus is lukas vated at 11.0. IMPRESSION: 1. Acute severe traumatic brain injury, stable. 2. Acute posttraumatic respiratory failure, improving. 3. Aspiration pneumonia. Microbiology from the pulmonary culture is pertinent for Stenotrophomonas maltophilia. This is sensitive to levofloxacin. 4. Acute oliguric renal failure on hemodialysis. PLAN: 1. Patient has been off dopamine drip since conversion to conventional mechanical ventilatory suppor t. 2. We will initiate p.o. analgesics in hopes of weaning off fentanyl. This hopefully will allow the patient to emerge from any sedative or narcotic induced coma. 3. We will continue with levofloxacin and discontinue ceftriaxone at this time. 4. Hemodialysis will be continued per Nephrology with a hope to achieve additional fluid loss today. 5. We will initiate p.o. antihypertensives in order to facilitate weaning from nicardipine drip. 6. The patient will be mobilized today to a neuro chair. Above findings and plan has been discussed with the patient's family at bedside. They indicated unde rstanding of information given. I answered their questions.
[2017-07-15] MEDS: cloNIDine 0.2 MG TAB PO SCH ×2 (12:35→19:03)
[2017-07-15] MEDS: HYDROcodone/Acetaminophen 10/325 mg Tablet PO SCH ×2 (12:36→19:04)
[2017-07-15] MEDS: niCARdipine HCl 50 MG in Sodium Chloride 0.9% 250 ML 230 ML IVPB SCH (16:42)
--- NOTE | 2017-07-16 01:16 | OP ---
DATE OF PROCEDURE: 07/15/2017. This is Reinier Mendosa PA-C dictating an operative note under Dr. Antonio Veronica. PREOPERATIVE DIAGNOSES: 1. Acute renal failure. 2. Severe traumatic brain injury. POSTOPERATIVE DIAGNOSES: 1. Acute renal failure. 2. Severe traumatic brain injury. PROCEDURE PERFORMED: Placement of a left femoral hemodialysis catheter under ultrasound guidance. INDICATIONS FOR PROCEDURE: This is a 51-year-old male who apparently sustained an acute tr aumatic brain injury following a fall. He was having renal failure acutely. He has been placed on d ialysis. His dialysis catheter on the right has failed to work. At this time, dialysis catheter und er the recommendations of Nephrology to be placed on the other side, the left side. DESCRIPTION OF PROCEDURE: Informed consent was obtained from the patient's . The patient was pl aced in supine position. The left femoral area was prepped and draped in the usual fashion. The ski n at the left groin area was anesthetized with 1% lidocaine. was prepped and draped in steril e fashion as well. Under ultrasound guidance, we visualized the femoral vein, which was then cannula reji with an 18-gauge introducer needle returning dark venous nonpulsatile blood. A guidewire was pas sed through the needle and advanced into the femoral vein without resistance. Needle was withdrawn o amador the guidewire. Stab incision was made adjacent to the guidewire using an 11 scalpel. Dilator x2 was passed over the guidewire dilating subcutaneous tissues. Dilator was removed and then hemodialy sis catheter was placed over the guidewire. Guidewire was then removed. Dark venous blood was aspir ated from both ports, individually flushed with saline. Catheter was secured to the left groin area with 3-0 silk suture at 2 points. Biopatch and sterile dressing were applied. No x-ray was noted. The patient tolerated the procedure without complications. Hemodialysis was immediately started. Ab ove patient was discussed with Dr. Veronica as above and agreed with the above procedure.
--- NOTE | 2017-07-16 01:19 | OP ---
PROCEDURE PERFORMED: Manipulation of femoral dialysis catheter. DESCRIPTION OF PROCEDURE: Attention was drawn to this patient who could not get dialysis because the dialysis catheter was recording high venous pressure on the dialysis machine. Lines were swabbed, b ut the problem continued. My original plan was to remove the dialysis catheter in whole and replace it with a new dialysis catheter; however, there was a shortage/absence of catheter; therefore d ecision was taken to manipulate this dialysis catheter by pulling it out a couple of centimeter and s ecuring with sutures. All the ports were flushed freely and aspirated freely, therefore dialysis can resume now.
[2017-07-16] MEDS: fentaNYL Citrate/PF 2,000 MCG in Sodium Chloride 0.9% 60 ML IV SCH (05:28)
[2017-07-16 05:52] LABS: Albumin 3.2 g/dL (3.5-5.0); Anion Gap 24 mmol/L (10-20); BUN (Urea Nitrogen) 84 mg/dL (8.4-25.7); BUN/Creatinine Ratio 13.86; Calc. Creatinine Clearance 18 mL/min (70-130); Calcium 9.1 mg/dL (7.8-10.44); Carbon Dioxide 22 mmol/L (22-29); Chloride 99 mmol/L (98-107); Estimated GFR-MDRD 10; Glucose 123 mg/dL (70-105); Magnesium 2.9 mg/dL (1.6-2.6); Potassium 5.3 mmol/L (3.5-5.1); Sodium 140 mmol/L (136-145)
[2017-07-16 05:54] LABS: Phosphorus 10.7 mg/dL (2.3-4.7)
[2017-07-16 06:10] LABS: Band 3 % (5-11); Hemoglobin 10.4 g/dL (14.0-18.0); Lymphocytes 10 % (21-51); MDiff Complete? YES; Macrocytosis SLIGHT = 6-15 cells (100X) (0-5/hpf); Mean Corpuscular HGB CONC 32.7 g/dL (32.0-36.0); Mean Corpuscular Hemoglobin 32.2 pg (27.0-31.0); Mean Corpuscular Volume 98.7 fl (80.0-94.0); Mean Platelet Volume 7.1 fL (7.4-10.4); Metamyelocyte 2 % (0-0); Monocytes 11 % (0-10); Neutrophil 72 % (42-75); PLT Morphology Comment Appears Adequate; Platelet Count 202 thou/uL (130-400); RBC Distribution Width 11.4 % (11.5-14.5); Reactive Lymphocytes 2 % (0-10); Red Blood Cell (RBC) Count 3.22 mill/uL (4.70-6.10); White Blood Cell (WBC) Count 11.4 thou/uL (4.8-10.8)
[2017-07-16] MEDS: Metoclopramide HCl 10 MG/2 ML VIAL IVP SCH ×3 (06:19→22:33)
[2017-07-16] MEDS: HYDROcodone/Acetaminophen 10/325 mg Tablet PO SCH ×5 (06:19→23:09)
--- NOTE | 2017-07-16 06:48 | PRG ---
DATE OF SERVICE: 07/16/2017 SUBJECTIVE: Mr. Rodrigez is a 51-year-old male, who I saw in his ICU room this morning. Twenty minutes ago, he finished dialysis. His dialysis was able to extract 5.6 liters of fluid. I did a complete neuro physical exam on Mr. Rodrigez and to see if his condition has improved. On exam, he has flexion withdraw to pain in bilateral lower extremities, no localization. No response to pain in the upper extremities bilaterally. He has his eyes open spontaneously and his pupils are equal and reactive to light. He has scleral hemorrhages bilaterally and opens his eyes slightly more when stimulated. Mr. Rodrigez has a gag reflex, bilateral corneal reflexes intact, has negative doll's eyes, and does not follow commands. He has a total GCS of 9. The exam is slightly better than yesterday. I have discussed this with Dr. Chirinos, but his exam is not great. I will order a BrainLAB protocol CT head , but do not plan on EVD intervention. All sedation was off on my exam. If there are any further questions, please feel free to contact Neurosurgery. HIRAL
[2017-07-16] MEDS: cloNIDine 0.2 MG TAB PO SCH ×5 (07:12→23:10)
--- NOTE | 2017-07-16 08:38 | PRG ---
DATE OF SERVICE: 07/16/2017 I saw Mr. Rodrigez in ICU this morning and studied results from overnight including CT scan. When I ex amined Mr. Rodrigez, he remains intubated and on some sedation, but his neurological examination is sig nificantly better than yesterday. Even to voice, he opens his eyes. Localizes with the right upper extremity. He barely withdraws the left upper extremity if there is flexion in the lower extremities to stimulus applied to the toes, which I believe is true withdrawal rather than triple flexion. All these motions are significantly improved with dialysis overnight. CT examination of the brain this morning shows expected maturation of the contusions in the brain. T he ventricles are slightly smaller on this examination than one done on the . Although we got a BrainLAB protocol CT with potential of adding an external ventricular drain today, the ventricles are now smaller than they were yesterday. The neurological examination has improved a nd I think dialysis is making a big difference. I would like to continue daily dialysis. Ideally, w e would have continuous veno-venous hemodialysis, but that is not available at our hospital, so we wi ll try to make this a daily process of trying to draw fluid out of the body including out of the brai n. This seems to have made a marked difference in his neurological status since yesterday. With con tinued improvement, I will be more optimistic.
[2017-07-16] MEDS: Bisacodyl 10 MG SUPP PR SCH (09:36)
[2017-07-16] MEDS: Pantoprazole 40 MG VIAL IVP SCH (09:50)
[2017-07-16] MEDS: Polyethylene Glycol 3350 17 GM Packet PER TUBE SCH (09:50)
[2017-07-16] MEDS: Amlodipine 10 MG TAB PO SCH (09:50)
[2017-07-16] MEDS: Sodium Chloride 1 GM TAB PO SCH ×2 (09:50→20:04)
[2017-07-16] MEDS: Folic Acid 1 MG TAB PO SCH (09:51)
--- NOTE | 2017-07-16 10:37 | CT ---
CERVICAL SPINE CT SCAN WITHOUT IV CONTRAST: Date: 07/16/17 COMPARISON: 07/08/17. HISTORY: History of fall with brain injury and intracranial hemorrhage. FINDINGS: Again noted are bilateral temporal bone fractures and left occipital fracture with extensive fluid wi thin the mastoids and middle ear cavities bilaterally. There is also fluid and mucosal changes within the visualized sinuses. The head is cocked to the side with some [id number] asymmetry. No evidence for acute fracture or facet dislocation. Variable severity multilevel canal, lateral recess, and for aminal stenosis from disc osteophytosis, most marked at C5-C6 and C6-C7. There is evidence for some p ersistent intracranial hemorrhage, particularly in the left posterior fossa. IMPRESSION: No evidence for acute fracture or facet dislocation. Multilevel cervical spondylosis with variable se verity canal, lateral recess, and foraminal stenosis. Stable appearing bilateral temporal bone fractu res and left occipital fracture with abnormal opacification within both mastoids and middle ear cavit ies, as well as sinus mucosal changes within the visualized sphenoid and maxillary sinuses. NG tube a nd endotracheal tubes remain in place. POS: NORMA
[2017-07-16] MEDS ORDERED: Heparin 1,000 UNITS/ML VIAL ONE (11:11)
--- NOTE | 2017-07-16 11:14 | CT ---
HEAD CT WITHOUT CONTRAST: Date: 07/16/17 COMPARISON: 07/13/17 and prior. HISTORY: Reevaluate intracranial hemorrhage. TECHNIQUE: Serial axial CT imaging at 1.25 mm intervals from vertex through skull base without contrast. FINDINGS: Endotracheal tube and nasogastric tube present, incompletely imaged. There is an intra-axial hemorrhage centered in the region of the mid right cerebellar hemisphere, cornelius suring approximately 2.6 x 4.3 cm, not significantly changed when compared to 07/13/17. There is surr ounding vasogenic edema. There is marked mass effect on the adjacent fourth ventricle, which is oblit erated inferiorly, a stable finding. The mass effect on the superior aspect of the fourth ventricle m ay have slightly worsened. Again, basilar cisterns appear completely effaced. Perimesencephalic ciste rn is effaced with stable mass effect on the kem and mid brain. There are scattered focal areas of subdural hemorrhage on the right, not significantly changed when c ompared to prior imaging, measuring up to 8-9 mm in thickness. Hemorrhagic contusions are noted in bifrontal regions as evidenced by areas of cortical and subcortic al hypodensity with internal areas of hyperdensity on the basis of associated hemorrhage. These hemor rhagic contusions measure up to 5.2 cm in transverse dimension in left frontal region and 4.7 cm in t ransverse dimension in right frontal region, not significantly changed. Anterior right temporal lobe hemorrhagic contusion again noted in the middle cranial fossa, grossly u nchanged. There is a small focal area of hypodensity in the subcortical white matter of the left frontotemporal region on axial image 73 measuring 8.0 mm, which may represent an area of acute infarction. As seen on the prior examination, there is diffuse loss of sulcation supratentorially, evidence of ma ss effect and diffuse cerebral edema. When compared to the prior examination, the ventricular system has decreased in volume suggesting dif fuse mass effect. This involves bilateral lateral ventricles which have decreased in size when compar ed to the prior exam. There is a fracture involving the inferior aspect of the occipital bone extending through the foramen for the left internal carotid artery. Questionable additional fracture involves the right skull base at the level of the jugular foramen. Partial opacification of ethmoid air cells and sphenoid sinuses noted. IMPRESSION: Bifrontal and right temporal lobe hemorrhagic contusion. Intra-axial hematoma in left cerebellar vickie sphere with marked associated mass effect. Continued effacement of basilar cisterns noted with diffus e cerebral edema. Diffuse mass effect leads to loss of sulcation throughout the supratentorial brain parenchyma and decreased size of ventricles suggests mass effect as well. Question punctate new infar ction on the right as detailed above. CODE T. POS: NORMA
--- NOTE | 2017-07-16 12:49 | PRG ---
DATE OF SERVICE: 07/16/2017 SUBJECTIVE: Mr. Rodrigez is a 51-year-old man, who suffered severe acute traumatic brain injury. The patient today remains in coma, Arlen coma scale of E4 M4 V1t. He has been intolerant to tube feeds, which currently is on hold. Blood pressure is better controlled now on p.o. antihypertensives. The narcotic pain meds have since been weaned off. He tolerated hemodialysis yesterday with 5.7 liters loss. OBJECTIVE: VITAL SIGNS: This morning includes blood pressure 154/77, pulse is 99, respiratory rate is 20. Maximum temperature in the last 24 hours is 99 degrees Fahrenheit. Oxygen saturation is 100% on FiO2 of 40% on assist-control mechanical ventilatory support. HEENT EXAMINATION: Reveals decrease in bilateral scleral edema. Pupils are equally round and reactive to light and accommodation at 3 mm. He has no jugular venous distention noted. HEART: Reveals regular rate and rhythm, no murmurs or gallops auscultated. LUNGS: Reveal scattered rhonchi. Breathing otherwise regular and unlabored. ABDOMEN: Soft and moderately distended with no tenderness to palpation. Liver and spleen are nonpalpable below costal margins. Bowel sounds in all 4 quadrants appear normoactive. EXTREMITIES: Reveals 2+ radial and pedal pulses bilaterally. He has no ankle edema present. PERTINENT LABORATORY FINDINGS: Today includes CBC with 11,400 white blood cells , hemoglobin 10.4, hematocrit is 31.7, platelet count is 202,000. Metabolic profile: Sodium 140, potassium is 5.3, chloride 99, bicarbonate 22, BUN 84, creatinine is decreasing at 6.06 in contrast to 7.18 yesterday. Glucose is 123 , phosphorus remains high at 10.7. I have reviewed noncontrast CT scan of the brain, which was obtained today, which reveals stable multiple intracranial hemorrhagic contusions with mass effects. IMPRESSION: 1. Acute severe traumatic brain injury. The patient remains in coma, however, with significant neurological improvement overnight. 2. Acute posttraumatic respiratory failure, improving. 3. Acute now anuric renal failure, stable. 4. Aspiration Pneumonia PLAN: 1. Continue with hemodialysis with a goal to achieve a volume loss as much as blood pressure would tolerate. 2. We will place patient on SIMV with pressure support, and if patient tolerates this, consider decreasing PEEP as oxygenation has markedly improved. Above findings and plan have been discussed with the patient's family at bedside. They indicated understanding of information provided. I answered their questions. HIRAL
--- NOTE | 2017-07-16 15:20 | PRG ---
DATE OF SERVICE: 07/16/2017 SUBJECTIVE: still has dialysis access related issues. The patient is still on life support, n oted with the following vital signs. OBJECTIVE: VITAL SIGNS: Temperature 98.8, pulse 93, blood pressure 142/78. HEENT EXAMINATION: Endotracheal tube in place. CARDIOVASCULAR SYSTEM: First and second heart sounds were heard. RESPIRATORY SYSTEM: Revealed vented sounds. DIGESTIVE SYSTEM: Revealed a tense abdomen. EXTREMITIES: No significant peripheral edema. NEUROLOGIC EXAMINATION: The patient is sedated and intubated. IMPRESSION: 1. Dense acute tubular necrosis. 2. secondary to dense acute tubular necrosis. 3. Hyperkalemia due to . 4. Status post intracranial bleed. PLAN: 1. The patient to continue with daily hemodialysis with ultrafiltration as tolerated by hemodynamics . 2. Given the possibility of cerebral edema dialysis, sodium prescription and we will increase the sodium during dialysis. 3. If patient continues to have problems with the access tolerate a dialysis catheter or proce ed with tunneled dialysis catheter, but this would be dependent on progress .
[2017-07-16] MEDS: Amantadine HCl 100 mg Capsule PO SCH (20:03)
[2017-07-17] MEDS: hydrALAZINE 20 MG/ML VIAL SLOW IVP PRN ×2 (03:27→06:39)
[2017-07-17] MEDS: cloNIDine 0.2 MG TAB PO SCH ×3 (05:09→13:48)
[2017-07-17] MEDS: HYDROcodone/Acetaminophen 10/325 mg Tablet PO SCH ×3 (05:10→17:43)
[2017-07-17 05:27] LABS: Albumin 3.5 g/dL (3.5-5.0); Anion Gap 27 mmol/L (10-20); BUN (Urea Nitrogen) 112 mg/dL (8.4-25.7); BUN/Creatinine Ratio 16.49; Calc. Creatinine Clearance 15 mL/min (70-130); Calcium 8.9 mg/dL (7.8-10.44); Carbon Dioxide 20 mmol/L (22-29); Chloride 99 mmol/L (98-107); Estimated GFR-MDRD 9; Glucose 113 mg/dL (70-105); Magnesium 3.1 mg/dL (1.6-2.6); Potassium 5.1 mmol/L (3.5-5.1); Sodium 141 mmol/L (136-145)
[2017-07-17 05:30] LABS: Phosphorus 11.3 mg/dL (2.3-4.7)
[2017-07-17] MEDS: Metoclopramide HCl 10 MG/2 ML VIAL IVP SCH ×3 (06:34→21:12)
[2017-07-17] MEDS ORDERED: cloNIDine 0.2 MG TAB PO SCH (08:28)
[2017-07-17] MEDS: Pantoprazole 40 MG VIAL IVP SCH (08:43)
[2017-07-17] MEDS: Polyethylene Glycol 3350 17 GM Packet PER TUBE SCH (08:44)
[2017-07-17] MEDS: Amlodipine 10 MG TAB PO SCH (08:44)
[2017-07-17] MEDS: Amantadine HCl 100 mg Capsule PO SCH ×2 (08:44→20:31)
[2017-07-17] MEDS: Folic Acid 1 MG TAB PO SCH (08:44)
[2017-07-17] MEDS: Bisacodyl 10 MG SUPP PR SCH (08:44)
[2017-07-17] MEDS: Sodium Chloride 1 GM TAB PO SCH ×2 (08:44→20:41)
[2017-07-17] MEDS: Metoprolol Tartrate 25 MG TAB PO SCH ×2 (09:02→13:48)
--- NOTE | 2017-07-17 09:26 | PRG ---
DATE OF SERVICE: 07/17/2017 This is a 15 minutes subsequent patient evaluation in which greater than 50% of the exam was spent in counseling and coordinating the patient's care. The remainder of the exam was spent in review of tito willson's medical record and appropriate imaging studies. SUBJECTIVE: Mr. Rodrigez is now hospital day #8 having sustained a fall with multiple skull fractures, multiple brain contusions and traumatic brain injury. The patient's neurologic status declined over the weekend; however, upon repeat scan, his ventricle size is actually smaller than his previous sca n. He did not require placement of an EVD. This morning, when I entered the room, his eyes are open and he attempts to attend to the examiner. He is not following any commands, not moving anything sp ontaneously; however, he does withdraw to pain on the left upper extremity and localizes with the rig ht upper extremity. With noxious stimulus, he also withdraw to pain in the bilateral lower extremiti es. The patient's neurologic exam is continuing to improve. We will continue to monitor his neurolo gic exam, but at this time, he does not require placement of an EVD by Neurosurgery. We will continu e with dialysis as directed by Nephrology. We appreciate Trauma attending to the patient's oxygenati on issues. Please call with any questions or changes in neurologic exam, otherwise we will continue to follow. Michael Thomas PA-C dictating for Dr. Cornelio Nogueira M.D.
--- NOTE | 2017-07-17 11:19 | PRG ---
DATE OF SERVICE: 07/17/2017 SUBJECTIVE: Mr. Rodrigez is a 51-year-old man who suffered a severe acute traumatic brain injury follo wing an apparent fall on 07/08/2017. He remains in coma. He was requiring narcotic pain by continuo us infusion for blood pressure control. Blood pressure has remained more stable over the last 24 meseret rs and so nicardipine has been weaned off. Currently, the patient's [place] coma scale is E4, M4, V1 t. The patient tolerates tube feeds at 10 mL per hour and has had a bowel movement overnight. PHYSICAL EXAMINATION: VITAL SIGNS: Currently includes blood pressure 138/83, pulse is 111, maximum temperature in the last 24 hours is 100.4 degrees Fahrenheit, oxygen saturation remained stable at 99% on FIO2 of 40%. Vent ilator settings has remained SIMV with pressure support, PEEP has been weaned down to 8. HEENT: Reveals pupils equal, round, and reactive to light bilaterally at 3 mm. There is decrease in bilateral sclerae edema present. The patient has bilateral, but stable conjunctival hemorrhages. H e has no jugular venous distention noted. HEART: Reveals regular rate and rhythm, no murmurs or gallops auscultated. LUNGS: Reveals scattered bibasilar rhonchi, left greater than right. Breathing is otherwise regular and unlabored. ABDOMEN: Soft and obese with no tenderness to palpation. Bowel sounds in all four quadrants appear normoactive. Liver and spleen are nonpalpable below costal margins. EXTREMITIES: Reveals 2+ radial and pedal pulses bilaterally. He has no ankle edema present. PERTINENT LABORATORY FINDINGS: Today includes metabolic profile: Sodium 141, potassium is 5.1, chlo ride is 99, bicarbonate is 20, BUN is 112, creatinine is 6.79, glucose is 113. Phosphorus remains el evated at 11.3. IMPRESSION: 1. Post-injury day #9, status post apparent ground level fall. 2. Acute severe traumatic brain injury. 3. Acute posttraumatic respiratory failure, stable. 4. Aspiration pneumonia, improving. 5. Acute renal failure, likely acute tubular necrosis secondary to contrast nephropathy. PLAN: 1. Continue with blood pressure control, we will add a low dose beta-yolande. 2. Continue with ventilatory support and begin ventilatory wean as tolerated. The patient more than likely will need a tracheostomy tube placement to facilitate ventilatory wean and to maintain airway while patient remains in coma. 3. Continue with hemodialysis per Nephrology. Goal today will be to achieve negative fluid balance again as much as tolerated. 4. Continue with physical and occupational therapy. The above findings and plan have been discussed with the patient's at bedside. She indicates understanding of the information provided. I ans wered her questions. Total critical care time today is 45 minutes.
[2017-07-17 14:14] VITALS: BMI 30.7
--- NOTE | 2017-07-17 15:44 | PRG ---
DATE OF SERVICE: 07/17/2017 SUBJECTIVE: The patient was seen and examined, still on life support. PHYSICAL EXAMINATION: VITAL SIGNS: Blood pressure 130/83, pulse 111, temperature maximum 100.4, O2 sat 99% on 40% oxygen s upport. HEENT: Unremarkable for endotracheal tube in place with conjunctival injection. NECK: Supple. CARDIOVASCULAR: First and second heart sounds, tachycardic. RESPIRATORY: Reveals vented sounds. ABDOMEN: Digestive system revealed a benign abdomen with positive bowel sounds. EXTREMITIES: Shows no significant peripheral edema. LABORATORY INVESTIGATION: Showed sodium of 141, potassium of 5.1, BUN of 112 with a creatinine of 6. 7, phosphorus of 11.3. IMPRESSION: 1. Dense acute tubular necrosis dependent on hemodialysis. 2. Intracranial bleed, status post mechanical fall. 3. Cardiopulmonary failure, dependent on mechanical ventilation. 4. Difficulties with dialysis accesses. PLAN: Dialyzing this patient has become quite challenging given the fact that this patient's blood s eems to be very viscous/possible hypercoagulable. Unfortunately, we cannot anticoagulate this patien t given the history of intracranial bleed. This has made it difficult to effectively dialyze this pa tient. Therefore, we will make arrangements for a tunneled dialysis catheter to be placed and femora l dialysis catheter discontinued in order to enable us to continue to effectively dialyze this patien t. Further management will be dependent on the clinical course.
[2017-07-17] MEDS ORDERED: Dextrose 5 %-0.45 % NaCl 1,000 ML IV SCH (20:00)
--- NOTE | 2017-07-17 23:17 | CON ---
DATE OF CONSULTATION; 07/17/2017 HISTORY OF PRESENT ILLNESS: Antnoio Rodrigez is an unfortunate 51-year-old male patient presenting o n 07/08/2017 drinking alcohol with his family, fell from a standing position and later, the patient w as missing, found on the kitchen floor unresponsive, 911 activated. The patient was combated after r eceiving Narcan. He had large volume emesis. Airway cleared and intubated and transferred to the [facility]. He had a Arlen Coma Scale of 7, arrived with a Arlen Coma Scale of 3, pharmacologically paralyzed and sedated after his intubation. PAST MEDICAL HISTORY: Significant for GERD and back surgery. SOCIAL HISTORY: He smokes a pack a day for over 20 years, drinks heavily on weekends, and no history of drug use. PAST SURGICAL HISTORY: On prehospitalization, was Nexium. This hospitalization, Dr. Nogueira saw him and on 07/08/2017, the patient had a right ICP monitor placed. 07/11/2017, Dr. Lua placed a left s ubclavian vein triple lumen catheter and a bronchoscopy and lavage performed, and on 07/12/2017, Dr. Zayas placed a right femoral dialysis catheter which did not work well for dialysis and required placement of another one a few days later. 07/12/2017, right radial arterial line placement. 07/15, Dr. Zayas placed a left femoral dialysis catheter. On 07/15/2017, another catheter was p laced. The patient has had a problem with his catheters clotting. They did not function well, but I have seen him regarding placement of the hemodialysis catheter. The patient prior to [facility], according to hospital records, had a normal renal function. On initial admission, he has a l eft upper arm midline cephalic vein line. I have asked the nurses to remove this immediately. ALLERGIES: None. PHYSICAL EXAMINATION: VITAL SIGNS: 5 feet 6 inches, 190 pounds, BMI of 30, 93 heart rate, 109/74. HEAD, EARS, EYES, NOSE, AND THROAT: Unremarkable. LUNGS: Clear to auscultation. CARDIAC: Regular rate and rhythm without murmur or gallop. ABDOMEN: Soft, nontender. EXTREMITIES: Unremarkable. Left subclavian vein central line, cervical collar in place. IMAGING STUDIES: 07/16/2017, C-spine CAT scan, no acute changes, chronic changes noted. 07/16/2017, CAT scan brain right frontal and right temporal lobe hemorrhagic contusion, hematoma cerebellar vickie sphere noted. 07/09/2017, [facility] [place] [facility] [place], angiogram with contrast intracranial hemorrhag e with an abnormality of the mid MCA right. ASSESSMENT AND PLAN: 1. Intracranial bleed with contusions and comatose state. Treatment per Neurosurgery 2. Respiratory failure on a ventilator. Dr. Lua has planned a tracheostomy. 3. Acute renal failure on dialysis, poorly-functioning femoral vein dialysis catheters. Would recom mend removal of the midline IV left arm immediately and avoid IV access blood draws above his wrist t o preserve the veins in case long-term dialysis access is needed. 4. Alcohol use. 5. Tobacco abuse. 6. Long-term prognosis is probably poor. 7. Hemodialysis catheter to cuffed tunneled tomorrow.
[2017-07-18] MEDS: HYDROcodone/Acetaminophen 10/325 mg Tablet PO SCH ×5 (00:28→23:18)
[2017-07-18] MEDS ORDERED: Dextrose 5 %-0.45 % NaCl 1,000 ML IV SCH (00:40)
[2017-07-18] MEDS: Metoprolol Tartrate 25 MG TAB PO SCH ×6 (00:47→23:18)
[2017-07-18] MEDS: cloNIDine 0.2 MG TAB PO SCH (00:47)
[2017-07-18] MEDS: hydrALAZINE 20 MG/ML VIAL SLOW IVP PRN (01:10)
[2017-07-18] MEDS: niCARdipine HCl 25 MG in Sodium Chloride 0.9% 250 ML 240 ML IVPB SCH ×2 (02:02→08:53)
[2017-07-18 05:49] LABS: Albumin 3.4 g/dL (3.5-5.0); Anion Gap 29 mmol/L (10-20); Calc. Creatinine Clearance 13 mL/min (70-130); Calcium 8.5 mg/dL (7.8-10.44); Carbon Dioxide 18 mmol/L (22-29); Chloride 100 mmol/L (98-107); Estimated GFR-MDRD 7; Glucose 133 mg/dL (70-105); Magnesium 3.4 mg/dL (1.6-2.6); Sodium 141 mmol/L (136-145)
[2017-07-18] MEDS ORDERED: cloNIDine 0.2 MG TAB PO SCH (06:00)
[2017-07-18 06:04] LABS: Phosphorus 13.4 mg/dL (2.3-4.7)
[2017-07-18 06:08] LABS: BUN (Urea Nitrogen) 130 mg/dL (8.4-25.7); BUN/Creatinine Ratio 15.87
[2017-07-18] MEDS: Metoclopramide HCl 10 MG/2 ML VIAL IVP SCH ×3 (06:25→21:33)
--- NOTE | 2017-07-18 06:33 | PRG ---
DATE OF SERVICE: 07/17/2017 SUBJECTIVE: Mr. Rodrigez is a 51-year-old male who suffered a severe acute traumatic brain injury foll owing apparent fall on 07/08/2017, remains in coma. He has required narcotic pain medications for bl ood pressure control. Blood pressures remained stable over the last 24 hours. Narcotic pain meds woodard ve been off. PO meds have been started, but at dialysis has been taking large amount of fluids, also currently patient is borderline hypotensive. Currently, patient's . OBJECTIVE: VITAL SIGNS: Currently, blood pressures ranging from systolic of 90 to as high as 110, diastolic in the 70s, heart rate was 93, T-max was 100.4, oxygen saturation 99% on FiO2 of 40 and he has been on p ressure support. Physical exam is unchanged from the a.m. progress note. IMPRESSION: 1. Post-injury day #9 status post apparent fall. 2. Acute traumatic brain injury. 3. Acute post-traumatic respiratory failure, stable. 4. Aspiration pneumonia. 5. Acute renal failure. Acute tubular necrosis secondary to contrast neuropathy. PLAN: Tomorrow, will begin multiple procedures including PermCath, IVC filter as well as trach and P EG. Hold tube feeds after midnight. I have held the blood pressure medications and started him on D 5 half NS at 75 mL per hour after discussion with Dr. Lua via telephone and agrees with the above p abby.
[2017-07-18] MEDS ORDERED: Iopamidol 370 76% 50 ML VIAL FS ONE (08:12)
[2017-07-18] MEDS: Polyethylene Glycol 3350 17 GM Packet PER TUBE SCH (08:49)
[2017-07-18] MEDS: Folic Acid 1 MG TAB PO SCH (08:50)
[2017-07-18] MEDS: Pantoprazole 40 MG VIAL IVP SCH (08:50)
[2017-07-18] MEDS: Amlodipine 10 MG TAB PO SCH (08:50)
[2017-07-18] MEDS: Amantadine HCl 100 mg Capsule PO SCH ×2 (08:50→20:47)
[2017-07-18] MEDS: Sodium Chloride 1 GM TAB PO SCH ×2 (08:50→20:48)
[2017-07-18] MEDS: Bisacodyl 10 MG SUPP PR SCH (08:51)
[2017-07-18] MEDS ORDERED: Fentanyl 100 MCG/2 ML VIAL ONE (09:23)
[2017-07-18] MEDS ORDERED: Midazolam HCl 2 mg/2 ml Vial ONE (09:23)
[2017-07-18] MEDS ORDERED: Fentanyl 100 MCG/2 ML VIAL SLOW IVP SCH (09:30)
[2017-07-18] MEDS ORDERED: Vecuronium 10 MG VIAL IVP SCH (09:30)
[2017-07-18] MEDS ORDERED: Midazolam HCl 2 mg/2 ml Vial SLOW IVP SCH (09:30)
[2017-07-18] MEDS ORDERED: Lidocaine 1% (PF) 30 ML VIAL ONE (09:43)
--- NOTE | 2017-07-18 09:47 | ULT ---
ULTRASOUND VESSEL MAPPING DIALYSIS ACCESS: HISTORY: ESRD. COMPARISON: None. TECHNIQUE: Real-time, james scale, color Doppler evaluation of the bilateral upper extremity arterial and venous systems performed. RIGHT UPPER EXTREMITY BRACHIAL ARTERY: 5.7 mm RADIAL ARTERY: 2.8 mm ULNAR ARTERY: 2.8 mm CEPHALIC VEIN Proximal Arm: 3.9 mm Mid Arm: 3.9 mm Distal Arm: 4.2 mm Antecubital Fossa: 6.2 mm Proximal Forearm: 2.5 mm Mid Forearm: 2.1 mm Distal Forearm: 2.3 mm BASILIC VEIN Proximal Arm: 4.7 mm Mid Arm: 4.9 mm Distal Arm: 4.6 mm Antecubital Fossa: 6.2 mm Proximal Forearm: 1.7 mm Mid Forearm: 1.1 mm Distal Forearm: 1.1 mm LEFT UPPER EXTREMITY BRACHIAL ARTERY: 4.5 mm RADIAL ARTERY: 2.3 mm ULNAR ARTERY: 2.8 mm CEPHALIC VEIN Proximal Arm: 4.2 mm Mid Arm: clot Distal Arm: clot Antecubital Fossa: clot Proximal Forearm: 3.1 Mid Forearm: 3.1 Distal Forearm: 3.0 BASILIC VEIN Proximal Arm: clot Mid Arm: clot Distal Arm: clot Antecubital Fossa: 4.5 Proximal Forearm: 4.2 Mid Forearm: clot Distal Forearm: 1.2 IMPRESSION: 1. Upper extremity arterial and venous sizes as above. 2. Clot within the left cephalic vein in the upper extremity. 3. Clot within the left basilic vein in the upper extremity as well as in the forearm. CODE T POS: [facility]
[2017-07-18] MEDS ORDERED: Heparin 10,000 UNITS/ 10 ML VIAL ONE (10:00)
[2017-07-18] MEDS ORDERED: CEFAZOLIN/Water 2 GM/20 ML SYRINGE SLOW IVP SCH (11:30)
[2017-07-18] MEDS ORDERED: Rocuronium Bromide 50 MG/5 ML VIAL IVP SCH (11:30)
--- NOTE | 2017-07-18 11:32 | PRG ---
DATE OF SERVICE: 07/18/2017 SUBJECTIVE: Mr. Rodrigez is status post apparent ground level fall sustaining severe acute traumatic brain injury. He is post-admission day #10 today. He remains in coma. Arlen coma scale is noted at E4, M4, V1T. He is currently on bowel rest in anticipation of surgical procedures today. He underwent an uneventful placement of IVC filter this morning. He tolerated hemodialysis yesterday with approximately 2700 mL of negative fluid balance. PHYSICAL EXAMINATION: VITAL SIGNS: This morning includes blood pressure 126/71, pulse is 99, respiratory rate is 18, maximum temperature in the last 24 hours is 98.7 degrees Fahrenheit. Oxygen saturation is 100% on FiO2 of 40%. HEENT: Reveals pupils which are equally round and reactive to light at 3 mm. He has decreasing sclerae edema and conjunctival hemorrhage. NECK: He has no jugular venous distention noted. HEART: Reveals regular rate and rhythm, no murmurs or gallops auscultated. LUNGS: Clear to auscultation bilaterally. His breathing is regular and unlabored. ABDOMEN: Soft and obese. He has no tenderness to palpation. Bowel sounds in all 4 quadrants appear normoactive. Liver and spleen are nonpalpable below costal margins. EXTREMITIES: Reveals 2+ radial and pedal pulses bilaterally. No ankle edema is present. LABORATORY DATA: Today includes metabolic profile: Sodium 141, potassium is 6.0, chloride is 100, bicarbonate 18, BUN is 130, creatinine is 8.19, glucose is 133, phosphorus is also markedly elevated at 13.4. IMPRESSION: 1. Acute severe traumatic brain injury with multiple intracranial hemorrhages. 2. Acute posttraumatic respiratory failure, stable. 3. Acute anuric renal failure. 4. Acute hyperkalemia. 5. Acute hyperphosphatemia. 6. Aspiration pneumonia, resolved. PLAN: 1. Continue mechanical ventilator support and wean ventilator as tolerated. 2. We will place a percutaneous tracheostomy tube as well as percutaneous endoscopic gastrostomy tube to facilitate ventilatory wean and potential prolonged enteral nutritional support, respectively. 3. Continue with hemodialysis per Nephrology today, goal to keep in neutral fluid balance today. 4. Continue with antibiotic therapy for a 10 day course with regards to the aspiration pneumonia. Both findings and plan discussed with the patient's at bedside. She indicates understanding of information given. I answered her questions. Total critical care time is 40 minutes. [facility]
[2017-07-18] MEDS: cloNIDine 0.1 MG TAB PO SCH ×4 (11:38→23:17)
--- NOTE | 2017-07-18 13:39 | OP ---
DATE OF PROCEDURE: 07/18/2017 PREOPERATIVE DIAGNOSES: 1. Acute severe traumatic brain injury. 2. Acute posttraumatic respiratory failure. 3. Acute renal failure. 4. Acute aspiration pneumonia. POSTOPERATIVE DIAGNOSES: 1. Acute severe traumatic brain injury. 2. Acute posttraumatic respiratory failure. 3. Acute renal failure. 4. Acute aspiration pneumonia. PROCEDURES PERFORMED: 1. Percutaneous tracheostomy tube placement. 2. Percutaneous endoscopic gastrostomy tube placement. SURGEON: Mehran Lua D.O. ANESTHESIA: Deep sedation and local. INDICATIONS FOR PROCEDURE: This 51-year-old man sustained a severe acute traumatic brain injury foll owing a fall. His hospitalization has been complicated by acute aspiration pneumonia and acute renal failure. The patient remains in coma and requires ventilatory support. Decision was made to place a percutaneous tracheostomy tube to facilitate ventilatory wean plus a percutaneous endoscopic gastro stomy tube is also warranted to facilitate prolonged enteral nutritional support. DESCRIPTION OF OPERATION: Informed consent obtained from the patient's . The patient is placed in supine position. The anterior neck is sterilely prepped and draped in the usual fashion. Broncho scope was introduced through the previous endotracheal tube and advanced to visualize the jessy. Th e endoscope was then withdrawn transilluminating the anterior neck at the level that was chosen for p lacement of the tracheostomy tube. The tip of the endotracheal tube was withdrawn to 4 cm above the jessy. The skin, 2 fingerbreadths above the suprasternal notch, was anesthetized with 1% lidocaine. A 1 cm vertical incision is made here using 15 scalpel. An introducer needle was inserted through this incision and advanced through the anterior tracheal wall visualized by bronchoscopy. Guidewire was passed through this needle and advanced into distal tracheal lumen without resistance. Needle wa s withdrawn over the guidewire. The dilator was then passed over the guidewire dilating subcutaneous tissues as well as the anterior tracheal wall over the guidewire. Finally, a dilator and a size 8 t racheostomy tube were passed over the guidewire as a unit and placed in the distal tracheal lumen wit hout resistance. The guidewire and the dilator were then removed leaving the tracheostomy tube in place. Inner cannul a was inserted. Once the cuff was inflated, patient is connected to mechanical ventilation via newly placed tracheostomy tube, noting good return of tidal volume. The tracheostomy tube is secured to t he anterior neck using old silk suture at 2 points. Sterile dressings and trach tie were then applie d. The bronchoscope was withdrawn with the endotracheal tube as a unit visualizing the tracheostomy site from above with good hemostasis. I then reinserted the bronchoscope into the newly placed trach eostomy tube and advanced to visualize the jessy. The scope was advanced first to the left upper an d left lower lobes, minor thick secretions were evacuated. The scope was withdrawn from and advanced to the right upper lobe, bronchus intermedius, and finally right lower lobes. Few mucus plugs were evacuated after it was irrigated with saline. No significant gross purulence was encountered. Follo wing completion of the pulmonary toilet, bronchoscope was withdrawn, visualizing the tracheostomy sit e from below, again no active bleeding noted. Attention was then directed to the abdomen for the PEG tube portion of the procedure. I then redraped and gowned after the abdominal wall was sterilely prepped and draped in the usual fas hion. An endoscope was passed per oral, intubating the esophagus with gentle insufflation. The scop e was advanced into the gastric lumen. The left upper quadrant was transilluminated at the area chos en for the PEG tube placement. Skin was anesthetized with 1% lidocaine here. A stab incision is mad e using an 11 scalpel. An introducer needle was inserted through his incision and advanced into the gastric lumen visualized by endoscopy. A guidewire was passed through this and advanced into the gas tric lumen and was captured with an endosnare, which was passed through the endoscope. The guidewire was then pulled out with the endoscope per oral. This was then connected to a 20-Wolof gastrostomy tube and the distal end of the wire was pulled out through the stab incision on the abdominal wall l eaving the mushroom end of the gastric tube embedded in the gastric wall visualized within the gastri c lumen. This was secured to the skin at 3 cm using a bolster. A sterile dressing was applied. The gastric tube was then fashioned to length. Once this part was completed, the abdomen was desufflate d. Endoscope was withdrawn, visualizing the normal esophageal mucosa. The patient tolerated the operation without any apparent complication and remains hemodynamically sta ble following completion of the procedure.
[2017-07-18] MEDS ORDERED: Bupivacaine/Epinephrine 0.25% 30 ML VIAL ONE (14:52)
[2017-07-18] MEDS ORDERED: Heparin 10,000 UNITS/1 ML VIAL ONE (14:52)
[2017-07-18] MEDS ORDERED: Sodium Chloride 0.9% 20 ML ONE (14:52)
[2017-07-18] MEDS ORDERED: Midazolam HCl 5 mg/5 ml Vial ONE (15:10)
[2017-07-18] MEDS ORDERED: Rocuronium Bromide 50 MG/5 ML VIAL ONE (15:10)
--- NOTE | 2017-07-18 17:21 | RAD ---
FRONTAL VIEW CHEST: 07/18/17 COMPARISON: 07/11/17 INDICATION: Central line placement. FINDINGS: There is a left subclavian venous catheter, similar in appearance. There has been placement of a righ t sided tunneled dialysis catheter with tip overlying the right atrium. Tracheostomy is present with tip just distal to the thoracic inlet. There are bilateral perihilar interstitial opacities. Bibasila r density present. There are extrinsic artifacts limiting detail. Cardiomediastinal silhouette is vernell ssly stable. There has been slight improvement with regards to patchy opacity of the right upper lung zone. IMPRESSION: Placement of right sided vascular catheter. No significant postprocedure pneumothorax is seen. Interval improvement of patchy right suprahilar opacity. POS: [facility]
[2017-07-18 18:47] LABS: #Basophils 0.1 thou/uL (0.0-0.2); #Eosinphils 0.1 thou/uL (0.0-0.7); #Lymphocytes 0.8 thou/uL (1.20-3.40); #Monocytes 1.9 thou/uL (0.11-0.59); #Neutrophils 13.5 thou/uL (1.40-6.50); %Basophils 0.4 % (0.0-1.0); %Eosinophils 0.8 % (0.0-10.0); %Lymphocytes 4.8 % (21.0-51.0); %Monocytes 11.8 % (0.0-10.0); %Neutrophils 82.2 % (42.0-75.0); Hemoglobin 8.3 g/dL (14.0-18.0); Mean Corpuscular HGB CONC 32.8 g/dL (32.0-36.0); Mean Corpuscular Hemoglobin 32.2 pg (27.0-31.0); Mean Platelet Volume 6.9 fL (7.4-10.4); Platelet Count 309 thou/uL (130-400); RBC Distribution Width 11.7 % (11.5-14.5); Red Blood Cell (RBC) Count 2.58 mill/uL (4.70-6.10); White Blood Cell (WBC) Count 16.4 thou/uL (4.8-10.8)
[2017-07-18] MEDS ORDERED: Albumin 25% 25 GM/100 ML BOT IVPB SCH (19:07)
[2017-07-18 19:11] LABS: Anion Gap 21 mmol/L (10-20); BUN (Urea Nitrogen) 109 mg/dL (8.4-25.7); Calc. Creatinine Clearance 17 mL/min (70-130); Calcium 7.6 mg/dL (7.8-10.44); Carbon Dioxide 21 mmol/L (22-29); Chloride 107 mmol/L (98-107); Estimated GFR-MDRD 10; Glucose 111 mg/dL (70-105); Magnesium 2.6 mg/dL (1.6-2.6); Phosphorus 8.4 mg/dL (2.3-4.7); Potassium 4.5 mmol/L (3.5-5.1); Sodium 144 mmol/L (136-145)
--- NOTE | 2017-07-18 19:45 | OP ---
DATE OF PROCEDURE: 07/18/2017 PREOPERATIVE DIAGNOSES: Acute renal failure, in need of dialysis access, closed head injury. POSTOPERATIVE DIAGNOSES: Acute renal failure, in need of dialysis access, closed head injury. PROCEDURE PERFORMED: Right IJ cuffed tunnel dialysis catheter. Ultrasound and fluoroscopy used. SURGEON: Dr. Chandrakant Mcrae ANESTHESIA: 0.25% Marcaine with epinephrine, 30 mL, mixed with 2% Xylocaine, 10 mL. PROCEDURE IN DETAIL: The patient was taken to the operating room where under general anesthesia, nec k and chest were prepared with chloraprep, draped in routine fashion. Local anesthetic infiltrated i nto skin and subcutaneous tissue about the operative site. Ultrasound guidance used to cannulate the right internal jugular vein. J-wire threaded. Trocar catheter removed. Skin was incised and enlar ged sharply. A stab incision was made over the right chest and using the tunneling device, precurved angiodynamics cuffed tunnel hemodialysis catheter tunneled between the two incisions, placing the fa bric cuff beneath the skin exit site just beneath the skin. A stab incision was made over the right chest. Catheter was secured with 2 i nterrupted sutures of 3-0 nylon. Biopatch sterile dressing applied. Mastisol used. Smaller and med ium sized dilators were placed over the J-wire into the internal jugular vein and removed. Dilator a nd pull-away sheath placed over the J-wire in superior vena cava and dilator and J-wire removed. Cat heter placed with a pull-away sheath. Pull-away sheath removed. Platysma was approximated with 4-0 Monocryl, skin with subdermal 4-0 Monocryl. Fluoroscopic images revealed good line placement. Each port aspirated blood and flushed with saline solution and then heparinized saline solution 1000 units of heparin per mL indicated volume of the port. Patient tolerated the procedure well.
[2017-07-18] MEDS ORDERED: Hydrocortisone Sod Succ/PF 100 mg/2 ml Vial IVP SCH (21:00)
[2017-07-18] MEDS ORDERED: Albumin 25% 25 GM/100 ML BOT IVPB PRN (22:09)
--- NOTE | 2017-07-19 00:29 | PRG ---
DATE OF SERVICE: 07/18/2017 SUBJECTIVE: Mr. Rodrigez is a 51-year-old male status post fall with severe TBI. His hospital course has been complicated by hypoxic respiratory failure and ATN requiring HD. Today, the patient underwe nt multiple procedures including IVC filter placement, tracheostomy, PEG tube placement, and tunneled HD catheter placement. Patient then was started on dialysis earlier this evening. Shortly after di alysis, the patient's blood pressure became unstable with a systolic blood pressure in the 70s. A 1 liter fluid bolus was given with minimal improvement. Patient was only able to tolerate 90 minutes o f HD. Once dialysis stopped, his blood pressure improved to a systolic of 100 or greater. His MAP r emains approximately 70. Additionally, the patient was noted to have a cortisol level of 13.8. OBJECTIVE: Vital signs most recent blood pressure 105/64. Otherwise, vital signs stable and patient is afebrile. He remains on his earlier ventilator settings with a PEEP of 8 and an FIO2 of 40%. Hi s CVP is approximately 10. He is currently trached. He remains sedated from earlier procedures. ASSESSMENT AND PLAN: As documented in daily progress note with the addition of hypotension. Unclear if this is secondary to intravascular depletion versus adrenal dysfunction, 100 mg of IV cortisone n ow and 25 mg q.8 hours. A 25 grams of 25% albumin now with an additional 25 grams for MAP less than 75. Continue other care as ordered. Continue to monitor. Assessment and plan was discussed with Dr. Lua over the phone, who is in agreement. Additional cri tical care time at bedside approximately 23 minutes.
[2017-07-19] MEDS: Hydrocortisone Sod Succ/PF 100 mg/2 ml Vial IVP SCH ×2 (03:36→12:20)
--- NOTE | 2017-07-19 06:09 | CCL ---
DATE OF PROCEDURE: 07/18/2017 PREOPERATIVE DIAGNOSIS: Closed head injury with inability to receive anticoagulation. PROCEDURE: Insertion of a TrapEase IVC filter. SURGEON: Dr. Felix Mcknight ANESTHESIA: 1% local lidocaine. CONTRAST: A. FLUORO: 1.5 minutes. PROCEDURE IN DETAIL: After prepping and draping the right groin, ultrasound was used to guide punctu re the femoral vein. After this had been done after lidocaine infiltration wire was inserted and con trast venography of the vena cava was performed demonstrating cava width of about 24 mm. Renal veins did not specifically visualize and for this reason a Alphonso catheter with wire was used to identify th e left and right renal veins with the right renal vein originating from the bottom of the L2 vertebra l body. The filter was then advanced and deployed with the tip at the L2-L3 interspace. The patient tolerated the procedure well. POS: [facility]
[2017-07-19] MEDS: HYDROcodone/Acetaminophen 10/325 mg Tablet PO SCH ×2 (06:40→12:17)
[2017-07-19] MEDS: cloNIDine 0.1 MG TAB PO SCH ×2 (06:40→12:17)
[2017-07-19] MEDS: Metoprolol Tartrate 25 MG TAB PO SCH ×2 (06:41→13:53)
[2017-07-19 06:49] LABS: #Eosinphils 0.1 thou/uL (0.0-0.7); #Lymphocytes 0.4 thou/uL (1.20-3.40); #Monocytes 0.6 thou/uL (0.11-0.59); #Neutrophils 10.3 thou/uL (1.40-6.50); %Basophils 0.3 % (0.0-1.0); %Eosinophils 0.5 % (0.0-10.0); %Lymphocytes 3.7 % (21.0-51.0); %Monocytes 5.2 % (0.0-10.0); %Neutrophils 90.3 % (42.0-75.0); Hemoglobin 6.9 g/dL (14.0-18.0); Mean Corpuscular HGB CONC 33.4 g/dL (32.0-36.0); Mean Corpuscular Hemoglobin 32.5 pg (27.0-31.0); Mean Corpuscular Volume 97.3 fl (80.0-94.0); Mean Platelet Volume 7.3 fL (7.4-10.4); Platelet Count 269 thou/uL (130-400); RBC Distribution Width 11.5 % (11.5-14.5); Red Blood Cell (RBC) Count 2.12 mill/uL (4.70-6.10); White Blood Cell (WBC) Count 11.4 thou/uL (4.8-10.8)
[2017-07-19 07:21] LABS: BUN (Urea Nitrogen) 151 mg/dL (8.4-25.7)
[2017-07-19 07:23] LABS: Anion Gap 24 mmol/L (10-20); Calc. Creatinine Clearance 12 mL/min (70-130); Calcium 7.6 mg/dL (7.8-10.44); Carbon Dioxide 20 mmol/L (22-29); Chloride 105 mmol/L (98-107); Estimated GFR-MDRD 7; Glucose 129 mg/dL (70-105); Magnesium 3.1 mg/dL (1.6-2.6); Phosphorus 12.6 mg/dL (2.3-4.7); Potassium 5.7 mmol/L (3.5-5.1); Sodium 143 mmol/L (136-145)
[2017-07-19] MEDS: Amlodipine 10 MG TAB PO SCH (09:07)
[2017-07-19] MEDS: Metoclopramide HCl 10 MG/2 ML VIAL IVP SCH ×2 (09:07→13:53)
[2017-07-19] MEDS: Amantadine HCl 100 mg Capsule PO SCH (09:07)
[2017-07-19] MEDS: Folic Acid 1 MG TAB PO SCH (09:08)
[2017-07-19] MEDS: Polyethylene Glycol 3350 17 GM Packet PER TUBE SCH (09:08)
[2017-07-19] MEDS: Sodium Chloride 1 GM TAB PO SCH (09:08)
[2017-07-19] MEDS: Bisacodyl 10 MG SUPP PR SCH (09:08)
[2017-07-19] MEDS: Pantoprazole 40 MG VIAL IVP SCH (09:10)
[2017-07-19 09:26] LABS: ALT (SGPT) 16 U/L (8-55); AST (SGOT) 47 U/L (5-34); Albumin 3.1 g/dL (3.5-5.0); Alkaline Phosphatase 60 U/L (40-150); Bilirubin, Direct 0.4 mg/dL (0.1-0.3); Bilirubin, Total 0.7 mg/dL (0.2-1.2); Protein, Total 5.5 g/dL (6.0-8.3)
--- NOTE | 2017-07-19 09:33 | CT ---
CT BRAIN WITHOUT CONTRAST: Comparison: 07-13-17 Technique: Multiple contiguous axial images were obtained in a CT of the brain without contrast. FINDINGS: There is a large amount of intracranial hemorrhage. There is hemorrhage in the left cerebellar hemisp here and in both frontal lobes. There is subarachnoid and subdural hemorrhage scattered throughout. T here is increase in cerebral edema and shift of the midline to the left. On the current exam this is approximately 1.3 cm in size. There is complete effacement of the fourth ventricle and downward uncal herniation is seen. The calvarium and overlying soft tissues are unremarkable. Fluid is seen in the mastoid air cells. Fl uid and mucosal thickening is seen in the paranasal sinuses. IMPRESSION: Worsening cerebral edema with severe intracranial hemorrhage. There is shift from the right to the le ft and downward herniation is worsening. A preliminary report was given to Dr. Nogueira at 7:56 a.m. on 07-19-17. This exam became available for dictation at 9:15 a.m. POS: [facility]
--- NOTE | 2017-07-19 10:07 | PRG ---
DATE OF SERVICE: 07/19/2017 Mr. Rodrigez experienced decreased in blood pressure last night. Subsequent to that, he has had a decl ine in his neurological exam. Head CT this morning demonstrates evidence of right-sided middle cereb ral artery distribution strokes with midline shift and increased edema. I suspect given his hypercoa gulable nature and potential vasospasm in the right MCA distribution from a subarachnoid hemorrhage a long with volume shifts. He likely coupled with decreased hemoglobin and drop in his blood pressure sustained a large stroke of the right middle cerebral artery distribution. This has resulted in the midline shift and he has edema throughout his brain at this point with evidence of herniation. His e xam this morning without any sedation since yesterday morning demonstrates pupils at 5 mm and nonreac tive with no corneal responses. I have assessed his doll's eyes responses and his eyes remain fixed in his skull. He has no gag response and does not trigger the ventilator. He has no movement of his upper or lower extremities to noxious stimuli with exception of trace triple flexion which is spinal cord mediated response. I had come to see the patient yesterday, but he was in between procedures a nd I was not able to get an adequate exam given the sedation he had received from his procedures he w as undergoing yesterday. I have comforted his family and let them know that given the size of his stroke coupled with his cere bral edema and poor neurological exam, I would not recommend any aggressive surgical intervention. U nfortunately, the patient will succumb to his injury. Certainly my concern is his hypercoagulable na ture they have led to ischemia coupled with fluid shifts and potentially even a pulmonary embolism gi lizbeth the decrease in his blood pressure.
[2017-07-19 10:09] VITALS: TEMP 98
[2017-07-19 10:33] LABS: Actual Bicarbonate (HCO3a) 21.9 mEq/L (22-26); Hemoglobin (Hb) 6.9 g/dL (14.0-18.0); O2 Tension (PaO2) 109.9 mmHg (80.0-100.0); Puncture Site ALINE; pH, Arterial 7.25 (7.35-7.45)
--- NOTE | 2017-07-19 11:52 | PRG ---
DATE OF SERVICE: 07/19/2017 SUBJECTIVE: Mr. Rodrigez remains on full mechanical ventilator support. He is in deep coma. Overnight, he has lost brainstem functions. At the time of my evaluation, his pupils are fixed and dilated. He has no corneal gag or cough refle xes. He is on no sedation or intravenous narcotic agents. He has had no seizure activities. PHYSICAL EXAMINATION: VITAL SIGNS: Includes blood pressure 114/82, pulse is 67, respiratory rate 18, maximum temperature i n the last 24 hours is 98.0 degrees Fahrenheit, oxygen saturation is 100% on FIO2 of 40%. GENERAL: Reveals fixed and dilated. HEENT: Absent corneal dulled reflexes. He has no cough or gag reflexes. He has no spontaneous resp iration. CARDIOVASCULAR: Reveals regular rate and rhythm, no murmurs or gallops auscultated. LUNGS: Clear to auscultation bilaterally. ABDOMEN: Soft and obese with bowel sounds in all 4 quadrants. Liver and spleen remain nonpalpable b elow costal margins. EXTREMITIES: Reveal 2+ radial and pedal pulses bilaterally. No ankle edema is present. NEUROLOGIC: The patient remained in deep coma now with Arlen coma scale of 3. DIAGNOSTIC DATA: Repeat CT scan of the brain reveals significant cerebral edema with cerebrovascular accident of ischemic nature involving the right middle cerebral arterial distribution. LABORATORY DATA: Today includes CBC with 11,400 white blood cells, hemoglobin is 6.9, hematocrit is 20.6, and platelet count is 269,000. Metabolic profile: Sodium 143, potassium is 5.7, chloride is 1 05, bicarbonate 20, BUN 151, creatinine 7.73, glucose 129. Phosphorus is elevated at 12.6. AST and ALT noted at 47 and 16 respectively. Total bilirubin is 0.7. Cortisol level last night was 13.80 wh ich the patient is currently on hydrocortisone. Arterial blood gas this morning, which was apnea test at 10 minutes with oxygen saturation remaining at 100%. The arterial blood gas is pH 7.25, pCO2 of 51, pO2 of 109.9. Base excess negative 5.0 and the patient had no spontaneous respiration at the end of 10 minutes. IMPRESSION: 1. 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 The patient is apparently brain d ead at this time; however, confirmatory test will be obtained with cerebral blood flow studies. 2. Acute posttraumatic respiratory failure. 3. Acute renal failure with acute tubular necrosis. PLAN: Above findings and plan discussed with the patient's large family at bedside. They indicated understanding of information given. They wish to proceed with confirmation of the brain in orde r to proceed with compliance with the patient's previously stated wishes of organ donation. Critical care time is 45 minutes including discussion with the family.
--- NOTE | 2017-07-19 12:51 | NM ---
NUMCLEAR MEDICINE CEREBRAL BLOOD FLOW EXAMINATION: History: Worsening CT scan without appropriate responsiveness. Evaluate for brain . Technique: A nuclear medicine cerebral blood flow study was performed using 32.5 mCi Technetium 99M H MPAO. FINDINGS: Angiographic and delayed images were performed. No flow is seen within the calvarium consistent with brain . A hot nose sign is incidentally noted. IMPRESSION: Findings on this study are compatible with brain . POS: [facility]
[2017-07-19 14:13] VITALS: BP 107/51
--- NOTE | 2017-07-19 19:32 | PRG ---
DATE OF SERVICE: 07/19/2017 SUBJECTIVE: The patient was seen. Unfortunately, the patient has declined neurologically and proces s of being pronounced brain , therefore, no indication for continued renal replacement therapy. The patient seems to have suffered some sudden change in his neurologic status resulting in progressi vely rapid decline in his neurologic function. Therefore, we will sign off at this point and further management will be dependent on the decision by the primary team and other specialty services.
--- NOTE | 2017-07-19 21:23 | DIS ---
DATE OF ADMISSION: 07/08/2017 DATE OF AND DISCHARGE: 07/19/2017 ADMITTING PHYSICIAN: Mehran Lua DO DISCHARGING PHYSICIAN: Mehran Lua DO ADMITTING DIAGNOSES: 1. Status post fall. 2. Acute severe traumatic brain injury. 3. Acute pulmonary aspiration. 4. Acute posttraumatic respiratory failure. DIAGNOSES ON DISCHARGE: 1. Status post fall. 2. Acute severe traumatic brain injury. 3. Acute pulmonary aspiration. 4. Acute posttraumatic respiratory failure. 5. Clinical brain . CONSULTANTS: 1. Dr. Cornelio Nogueira with Neurosurgery. 2. Dr. Chana Chapman with Nephrology. 3. Dr. Felix Mcknight with Cardiovascular Surgery. 4. Dr. Chandrakant Mcrae with General Surgery. OPERATIONS PERFORMED: 1. Placement of right ICP Anthony monitor by Dr. Cornelio Nogueira on 07/08/2017. 2. Fiberoptic bronchoscopy with bronchioalveolar lavage and placement of left subclavian triple-lume n central venous catheter on 07/11/[address] Lua. 3. Placement of right femoral dialysis catheter on 07/12/[address] Chana Chapman. 4. Placement of left femoral hemodialysis catheter by Reinier Mendosa PA-C, on 07/15/2017. 5. Placement of inferior vena cava filter on 07/18/[address] Mcknight. 6. Percutaneous tracheostomy tube placement and percutaneous endoscopic gastrostomy tube placement o n 07/18/[address] Lua. 7. Placement of right IJ cuffed tunnel dialysis catheter on 07/18/[address] Mcrae. HISTORY AND HOSPITAL COURSE: A 51-year-old man who presented on 07/08/2017 after an appare nt fall sustaining a severe acute traumatic brain injury. Downtime was questionable. The patient wa s seen following trauma workup by Dr. Cornelio Nogueira with Neurosurgery. Intracranial pressure monitor was placed following which the patient was admitted to the intensive care unit. His course was compl icated by aspiration pneumonia with acute respiratory distress syndrome which was managed with deep s edation and inverse I:E ratio and increased PEEP until this resolved. The patient was also placed on IV antibiotics. Once the aspiration pneumonia resolved, the patient was placed on a commercial [facility] anical ventilatory support. Sedation was ultimately weaned off. Subsequent clinical examination rev eals a patient who was variably localizing to pain and at least withdrawing to pain. Arlen Coma Sc marcelina 2 days ago was noted at E4 M4 V1T. The patient also developed acute renal failure, likely second alhaji to contrast-induced acute tubular necrosis. Hemodialysis was initiated. Overnight, the patient developed episodic hypotension managed with fluid boluses. Cortisol level was low and as a result, h ydrocortisone was initiated. By this morning, the brainstem function has been lost as the patient no more has any spontaneous respiratory efforts. On examination, pupils are now fixed and dilated. He has no corneal, gag, or oculovestibular reflexes. Apnea test was initiated and continued for 10 min utes and subsequently, terminated as the blood pressure started to fall again. Blood gas which was o btained at the end of the apnea test revealed a pCO2 of 51. No active effort at initiating respirato ry function was detected. We then ordered a brain flow study which established no brain flow to the brain. Clinical examination again was repeated at the bedside. At this time, the patient has no mot or function, had no brainstem reflexes, and has no spontaneous respiration. He was pronounced a t 1316 hours on 07/19/2017. The family was at the bedside and wishes to proceed with arrangements fo r organ retrieval.
== END 2017-07-19 13:16 | disposition expired | DRG 3 ==
LOC: ERS 03:45 → CCU 04:25
PROVIDERS: ADMIT Surgery; ATTEND Surgery
PROC: 00H032Z Insertion of Monitoring Device into Brain, Percutaneous Approach (ICD-10-PCS; 2017-07-11)
PROC: 0B9J8ZX Drainage of Left Lower Lung Lobe, Via Natural or Artificial Opening Endoscopic, Diagnostic (ICD-10-PCS; 2017-07-11)
PROC: 0B9C8ZX Drainage of Right Upper Lung Lobe, Via Natural or Artificial Opening Endoscopic, Diagnostic (ICD-10-PCS; 2017-07-11)
PROC: 0B9G8ZX Drainage of Left Upper Lung Lobe, Via Natural or Artificial Opening Endoscopic, Diagnostic (ICD-10-PCS; 2017-07-11)
PROC: 0B9F8ZX Drainage of Right Lower Lung Lobe, Via Natural or Artificial Opening Endoscopic, Diagnostic (ICD-10-PCS; 2017-07-11)
PROC: 05H633Z Insertion of Infusion Device into Left Subclavian Vein, Percutaneous Approach (ICD-10-PCS; 2017-07-11)
PROC: 4A103BD Monitoring of Intracranial Pressure, Percutaneous Approach (ICD-10-PCS; 2017-07-11)
PROC: 03HB33Z Insertion of Infusion Device into Right Radial Artery, Percutaneous Approach (ICD-10-PCS; 2017-07-12)
PROC: 04HM33Z Insertion of Infusion Device into Right Popliteal Artery, Percutaneous Approach (ICD-10-PCS; 2017-07-12)
PROC: 5A1D70Z Performance of Urinary Filtration, Intermittent, Less than 6 Hours Per Day (ICD-10-PCS; 2017-07-12)
PROC: 03WYX3Z Revision of Infusion Device in Upper Artery, External Approach (ICD-10-PCS; 2017-07-15)
PROC: 06HN33Z Insertion of Infusion Device into Left Femoral Vein, Percutaneous Approach (ICD-10-PCS; 2017-07-15)
PROC: 0B113F4 Bypass Trachea to Cutaneous with Tracheostomy Device, Percutaneous Approach (ICD-10-PCS; principal; 2017-07-18)
PROC: 5A1955Z Respiratory Ventilation, Greater than 96 Consecutive Hours (ICD-10-PCS; 2017-07-18)
PROC: 0DH63UZ Insertion of Feeding Device into Stomach, Percutaneous Approach (ICD-10-PCS; 2017-07-18)
PROC: 0BJ08ZZ Inspection of Tracheobronchial Tree, Via Natural or Artificial Opening Endoscopic (ICD-10-PCS; 2017-07-18)
PROC: 06H03DZ Insertion of Intraluminal Device into Inferior Vena Cava, Percutaneous Approach (ICD-10-PCS; 2017-07-18)
PROC: 02HV33Z Insertion of Infusion Device into Superior Vena Cava, Percutaneous Approach (ICD-10-PCS; 2017-07-19)
DX: S02.19XA Other fracture of base of skull, initial encounter for closed fracture (principal); G93.5 Compression of brain; R09.2 Respiratory arrest; N17.0 Acute kidney failure with tubular necrosis; J69.0 Pneumonitis due to inhalation of food and vomit; I95.9 Hypotension, unspecified; E83.39 Other disorders of phosphorus metabolism; E87.1 Hypo-osmolality and hyponatremia; J96.01 Acute respiratory failure with hypoxia; T82.594A Other mechanical complication of infusion catheter, initial encounter; E87.2 Acidosis; E87.5 Hyperkalemia; E83.42 Hypomagnesemia; S06.5X9A Traumatic subdural hemorrhage with loss of consciousness of unspecified duration, initial encounter; S02.119A Unspecified fracture of occiput, initial encounter for closed fracture; S06.6X9A Traumatic subarachnoid hemorrhage with loss of consciousness of unspecified duration, initial encounter; R40.2434 Glasgow coma scale score 3-8, 24 hours or more after hospital admission; S06.1X9A Traumatic cerebral edema with loss of consciousness of unspecified duration, initial encounter; F10.120 Alcohol abuse with intoxication, uncomplicated; G93.2 Benign intracranial hypertension; K21.9 Gastro-esophageal reflux disease without esophagitis; E87.6 Hypokalemia; E66.9 Obesity, unspecified; F17.210 Nicotine dependence, cigarettes, uncomplicated; R40.20 Unspecified coma; Z68.28 Body mass index [BMI] 28.0-28.9, adult; Z82.49 Family history of ischemic heart disease and other diseases of the circulatory system; Y84.9 Medical procedure, unspecified as the cause of abnormal reaction of the patient, or of later complication, without mention of misadventure at the time of the procedure; W19.XXXA Unspecified fall, initial encounter; Y92.234 Operating room of hospital as the place of occurrence of the external cause
CPT/HCPCS: 36415; 36430; 37191; 51702; 70450; 70460; 70496; 71045; 71260; 72125; 74018; 74177; 76770; 76942; 78610; 80048; 80053; 80069; 80076; 80306; 80307; 82533; 82570; 82805; 83735; 83930; 83935; 84100; 84295; 84300; 85007; 85025; 85027; 85610; 85730; 86704; 86706; 86850; 86900; 86901; 87070; 87186; 87205; 87340; 90471; 90682; 90715; 90935; 93970; 94002; 94003; 94640; 96365; 96368; 96375; 99292; A4216; A9521; C1752; C1769; C9113; G0008; G0257; G0365; G0390; G8978-GP-CN; G8979-GP-CM; G8987-GO-CN; G8988-GO-CN; G8989-GO-CN; J0131; J0360; J0696; J1644; J1720; J1953; J1956; J2001; J2060; J2250; J2405; J2704; J2765; J3010; J3480; J7042; J7050; J7070; J7620; J7799; P9016; P9047; Q2036

== ENCOUNTER 2017-07-19 13:47 | Day surgery (SDC) | payer OTHER ==
[2017-07-19] MEDS ORDERED: FLU VACC QS2017-18 36 mo. & older 0.5 ML SYRINGE IM ONE (14:45)
[2017-07-19] MEDS ORDERED: Albuterol Sulfate 2.5 mg/3 ml Neb NEB PRN (15:43)
[2017-07-19] MEDS ORDERED: methylPREDNISolone Sod Succ 2 gm/30 ml Vial IVP SCH (15:45)
[2017-07-19] MEDS ORDERED: Levothyroxine Sodium 400 MCG in Sodium Chloride 0.9% 100 ML IVPB SCH (15:45)
[2017-07-19 15:47] LABS: Hemoglobin 7.7 g/dL (14.0-18.0); Mean Corpuscular HGB CONC 33.5 g/dL (32.0-36.0); Mean Corpuscular Hemoglobin 31.9 pg (27.0-31.0); Mean Corpuscular Volume 95.2 fl (80.0-94.0); Mean Platelet Volume 7.6 fL (7.4-10.4); Platelet Count 277 thou/uL (130-400); RBC Distribution Width 13.2 % (11.5-14.5); White Blood Cell (WBC) Count 13.4 thou/uL (4.8-10.8)
[2017-07-19 15:50] LABS: Actual Bicarbonate (HCO3a) 17.6 mEq/L (22-26); Base Excess (BEa) -6.1 mEq/L (0 (+/-) 2.5); CO2 Tension 27.7 mmHg (35.0-45.0); Hemoglobin (Hb) 7.4 g/dL (14.0-18.0); O2 Tension (PaO2) 301.5 mmHg (80.0-100.0); pH, Arterial 7.42 (7.35-7.45)
[2017-07-19 15:51] LABS: Calcium, Ionized 0.9 mmol/L (1.12-1.30); Puncture Site ALINE
[2017-07-19 15:53] LABS: ALV-art Gradient 376.875 (0-20)
--- NOTE | 2017-07-19 15:53 | RAD ---
CHEST ONE VIEW: History: Donor patient. Comparison: Chest one view, 07-18-17. FINDINGS: There are atelectatic changes in the basis. Small left effusion. Central venous catheter tip is in go od position. IMPRESSION: Mild lung hypoinflation with atelectasis and small effusion on the left. POS: [facility]
[2017-07-19 16:02] LABS: INR-International Normal Ratio 1.4; PTT 27.2 SEC (22.9-36.1); Prothrombin Time 17.5 SEC (12.0-14.7)
[2017-07-19 16:09] LABS: ALT (SGPT) 14 U/L (8-55); AST (SGOT) 46 U/L (5-34); Alkaline Phosphatase 63 U/L (40-150); Anion Gap 26 mmol/L (10-20); Bilirubin, Direct 0.5 mg/dL (0.1-0.3); Bilirubin, Total 0.7 mg/dL (0.2-1.2); CK (CPK) 527 U/L (30-200); Calc. Creatinine Clearance 0 mL/min (70-130); Calcium 8.1 mg/dL (7.8-10.44); Carbon Dioxide 18 mmol/L (22-29); Chloride 104 mmol/L (98-107); Estimated GFR-MDRD 7; Gamma GT (GGT) 228 U/L (12-64); Globulin 2.4 g/dL (2.4-3.5); Glucose 111 mg/dL (70-105); Lipase 22 U/L (8-78); Magnesium 3.4 mg/dL (1.6-2.6); Potassium 5.6 mmol/L (3.5-5.1); Protein, Total 5.4 g/dL (6.0-8.3); Sodium 142 mmol/L (136-145)
[2017-07-19 16:12] LABS: CKMB 3.6 ng/mL (0-6.6)
[2017-07-19 16:14] LABS: Phosphorus 14.1 mg/dL (2.3-4.7)
[2017-07-19 16:18] LABS: Band 4 % (5-11); Lymphocytes 6 % (21-51); MDiff Complete? YES; Monocytes 4 % (0-10); Neutrophil 85 % (42-75); PLT Morphology Comment Appears Adequate; Reactive Lymphocytes 1 % (0-10)
[2017-07-19 16:20] LABS: BUN (Urea Nitrogen) 153 mg/dL (8.4-25.7)
--- NOTE | 2017-07-19 16:27 | ULT ---
ULTRASOUND GUIDED LIVER BIOPSY 07/19/17 HISTORY: Donor patient. COMPARISON: None. FINDINGS: The exam was performed in the patient's room. Exam was done for organ donor evaluation. The patient's abdomen was prepped and draped in the normal sterile fashion. Small dermatomy is made. Introducer was placed in the hepatic parenchyma and using an 18 gauge Biopince needle, total of two 22 mm cores were obtained. No significant hemorrhage. IMPRESSION: Technically successful ultrasound guided liver biopsy x2. The sample was given to the transplant com pany. POS: [facility]
[2017-07-19 16:57] LABS: Bilirubin Negative (Negative); Blood, Urine Moderate (Negative); Clarity CLOUDY (Clear); Glucose, Urine (Dipstick) Negative (Negative); Leukocyte Negative (Negative); Nitrite Negative (Negative); Protein, Urine (Dipstick) 30 mg/dL (Neg-Trace); Specific Gravity, Urine 1.022 (1.002-1.036); Urobilinogen 0.2 mg/dL (0.2-1.0); pH, Urine 5.5 (5.0-9.0)
[2017-07-19] MEDS: Phytonadione 10 MG/ML AMP SLOW IVP SCH ×2 (16:58→19:46)
[2017-07-19 17:02] LABS: Bacteria/HPF None Seen HPF (None Seen); Hyaline Casts/LPF 7-10 HYALINE CAST LPF (0-3 Hyaline); Pathc Cast-AUWi Flag 1.62 (0-2.49); RBC/HPF GREATER THAN 50-TNTC HPF (0-3); Squamous Epithelial 0-3 HPF (0-3)
[2017-07-19] MEDS ORDERED: Albumin 25% 200 ML ONE (17:25)
[2017-07-19] MEDS ORDERED: Albumin 25% 25 GM/100 ML BOT IVPB SCH (17:30)
[2017-07-19] MEDS ORDERED: Phenylephrine 10 MG/NS 250 ML 250 ML IVPB SCH (17:30)
[2017-07-19] MEDS: Sodium Chloride 0.45% 1,000 ML IV SCH (17:37)
[2017-07-19] MEDS ORDERED: Dextrose 50% Abboject 50 ML SYRINGE ONE (17:46)
[2017-07-19] MEDS ORDERED: Dextrose 50% Abboject 50 ML SYRINGE SLOW IVP SCH (18:00)
[2017-07-19] MEDS ORDERED: Insulin Regular 300 UNITS/3 ML VIAL IVP SCH (18:00)
[2017-07-19] MEDS ORDERED: Levothyroxine 100 MCG SDV SLOW IVP SCH (18:00)
[2017-07-19] MEDS: CEFAZOLIN 1 GM, Syringe 2.5 ML in Sterile Water 7.5 ML SLOW IVP SCH (18:10)
[2017-07-19] MEDS ORDERED: DOPamine 400 MG/D5W 250 ML 250 ML IVPB SCH (19:30)
[2017-07-19 19:48] LABS: Hemoglobin 7.1 g/dL (14.0-18.0)
[2017-07-19 21:40] LABS: #Eosinphils 0.1 thou/uL (0.0-0.7); #Lymphocytes 0.4 thou/uL (1.20-3.40); #Monocytes 0.6 thou/uL (0.11-0.59); #Neutrophils 9.3 thou/uL (1.40-6.50); %Basophils 0.1 % (0.0-1.0); %Eosinophils 0.6 % (0.0-10.0); %Lymphocytes 4.1 % (21.0-51.0); %Monocytes 5.6 % (0.0-10.0); %Neutrophils 89.5 % (42.0-75.0); Hemoglobin 7.9 g/dL (14.0-18.0); Mean Corpuscular HGB CONC 33.1 g/dL (32.0-36.0); Mean Corpuscular Hemoglobin 31.6 pg (27.0-31.0); Mean Corpuscular Volume 95.5 fl (80.0-94.0); Mean Platelet Volume 8.1 fL (7.4-10.4); Platelet Count 266 thou/uL (130-400); RBC Distribution Width 13.6 % (11.5-14.5); White Blood Cell (WBC) Count 10.4 thou/uL (4.8-10.8)
[2017-07-19 21:47] LABS: INR-International Normal Ratio 1.4; PTT 27.2 SEC (22.9-36.1); Prothrombin Time 17.1 SEC (12.0-14.7)
[2017-07-19 21:58] LABS: Actual Bicarbonate (HCO3a) 17.7 mEq/L (22-26); Base Excess (BEa) -7.3 mEq/L (0 (+/-) 2.5); CO2 Tension 33.1 mmHg (35.0-45.0); Hematocrit-ABG 23.7 % (42.0-52.0); Hemoglobin (Hb) 7.6 g/dL (14.0-18.0); pH, Arterial 7.34 (7.35-7.45)
[2017-07-19 21:59] LABS: Calcium, Ionized 0.9 mmol/L (1.12-1.30)
[2017-07-19 22:00] LABS: ALT (SGPT) 14 U/L (8-55); AST (SGOT) 42 U/L (5-34); Albumin 3.9 g/dL (3.5-5.0); Alkaline Phosphatase 72 U/L (40-150); Anion Gap 30 mmol/L (10-20); Bilirubin, Total 1.2 mg/dL (0.2-1.2); Calc. Creatinine Clearance 0 mL/min (70-130); Calcium 8.4 mg/dL (7.8-10.44); Carbon Dioxide 18 mmol/L (22-29); Chloride 102 mmol/L (98-107); Estimated GFR-MDRD 6; Globulin 2.6 g/dL (2.4-3.5); Glucose 158 mg/dL (70-105); Magnesium 3.6 mg/dL (1.6-2.6); Protein, Total 6.5 g/dL (6.0-8.3); Sodium 145 mmol/L (136-145)
[2017-07-19 22:01] LABS: ALV-art Gradient 229.625 (0-20); Puncture Site ALINE
[2017-07-19 22:11] LABS: BUN (Urea Nitrogen) 161 mg/dL (8.4-25.7)
[2017-07-20] MEDS: CEFAZOLIN 1 GM, Syringe 2.5 ML in Sterile Water 7.5 ML SLOW IVP SCH (01:41)
[2017-07-20 01:47] LABS: Actual Bicarbonate (HCO3a) 17.7 mEq/L (22-26); CO2 Tension 33.9 mmHg (35.0-45.0); O2 Tension (PaO2) 257.2 mmHg (80.0-100.0); pH, Arterial 7.34 (7.35-7.45)
[2017-07-20 01:48] LABS: Base Excess (BEa) -7.3 mEq/L (0 (+/-) 2.5); Calcium, Ionized 0.9 mmol/L (1.12-1.30); Hematocrit-ABG 29.5 % (42.0-52.0); Hemoglobin (Hb) 9.5 g/dL (14.0-18.0)
[2017-07-20 01:50] LABS: ALV-art Gradient 408.425 (0-20); Puncture Site ALINE
[2017-07-20] MEDS ORDERED: niCARdipine HCl 25 MG in Sodium Chloride 0.9% 250 ML 240 ML IVPB SCH (03:00)
[2017-07-20] MEDS ORDERED: Sodium Bicarb 50 MEQ/50 ML Abboject 8.4% SYRINGE IVP SCH (03:30)
[2017-07-20 03:51] LABS: Actual Bicarbonate (HCO3a) 17.9 mEq/L (22-26); Base Excess (BEa) -7.9 mEq/L (0 (+/-) 2.5); CO2 Tension 37.7 mmHg (35.0-45.0); Hemoglobin (Hb) 10.8 g/dL (14.0-18.0); O2 Tension (PaO2) 206.5 mmHg (80.0-100.0)
[2017-07-20 03:54] LABS: Puncture Site ALINE
[2017-07-20 03:56] LABS: ALV-art Gradient 459.375 (0-20)
[2017-07-20 04:29] LABS: Bilirubin Negative (Negative); Blood, Urine Large (Negative); Clarity CLOUDY (Clear); Glucose, Urine (Dipstick) Negative (Negative); Leukocyte Negative (Negative); Nitrite Negative (Negative); Protein, Urine (Dipstick) 100 mg/dL (Neg-Trace); Specific Gravity, Urine 1.023 (1.002-1.036); Urobilinogen 0.2 mg/dL (0.2-1.0); pH, Urine 5.5 (5.0-9.0)
[2017-07-20 04:34] LABS: Bacteria/HPF None Seen HPF (None Seen); Hyaline Casts/LPF 7-10 HYALINE CAST LPF (0-3 Hyaline); Pathc Cast-AUWi Flag 1.49 (0-2.49); Squamous Epithelial 0-3 HPF (0-3)
[2017-07-20 04:38] LABS: Yeast-AUWi Flag 136.5 (0-25.0)
[2017-07-20 04:40] LABS: INR-International Normal Ratio 1.2; PTT 25.5 SEC (22.9-36.1); Prothrombin Time 15.5 SEC (12.0-14.7)
[2017-07-20 04:52] LABS: RBC/HPF 0-3 HPF (0-3)
[2017-07-20 04:56] LABS: Yeast-All Forms None Seen HPF (None Seen)
[2017-07-20 04:57] LABS: ALT (SGPT) 17 U/L (8-55); AST (SGOT) 41 U/L (5-34); Albumin 4.2 g/dL (3.5-5.0); Alkaline Phosphatase 86 U/L (40-150); Anion Gap 31 mmol/L (10-20); Bilirubin, Total 1.6 mg/dL (0.2-1.2); Calc. Creatinine Clearance 12 mL/min (70-130); Calcium 7.7 mg/dL (7.8-10.44); Carbon Dioxide 17 mmol/L (22-29); Chloride 100 mmol/L (98-107); Estimated GFR-MDRD 6; Globulin 2.8 g/dL (2.4-3.5); Glucose 178 mg/dL (70-105); Magnesium 3.5 mg/dL (1.6-2.6); Potassium 5.7 mmol/L (3.5-5.1); Sodium 142 mmol/L (136-145)
[2017-07-20 05:08] LABS: BUN (Urea Nitrogen) 162 mg/dL (8.4-25.7)
[2017-07-20 05:10] LABS: Phosphorus 15.7 mg/dL (2.3-4.7)
[2017-07-20 05:14] LABS: Band 4 % (5-11); Hemoglobin 10.4 g/dL (14.0-18.0); Lymphocytes 2 % (21-51); MDiff Complete? YES; Mean Corpuscular HGB CONC 34.1 g/dL (32.0-36.0); Mean Corpuscular Hemoglobin 31.7 pg (27.0-31.0); Mean Platelet Volume 7.8 fL (7.4-10.4); Monocytes 1 % (0-10); Myelocyte 1 % (0-0); Neutrophil 92 % (42-75); Platelet Count 285 thou/uL (130-400); RBC Distribution Width 13.8 % (11.5-14.5); Red Blood Cell (RBC) Count 3.27 mill/uL (4.70-6.10); White Blood Cell (WBC) Count 17.8 thou/uL (4.8-10.8)
[2017-07-20] MEDS: Piperacillin/Tazobactam 3.375 GM in Sodium Chloride 0.9% 100 ML IVPB SCH ×4 (05:24→23:05)
[2017-07-20 05:59] LABS: Lactic Acid 0.6 mmol/L (0.5-2.2)
[2017-07-20] MEDS ORDERED: Furosemide 20 MG/2 ML VIAL SLOW IVP SCH (06:00)
[2017-07-20] MEDS ORDERED: Calcium Gluconate 4.6 MEQ in Sodium Chloride 0.9% 100 ML IVPB SCH (06:15)
[2017-07-20 07:21] LABS: Actual Bicarbonate (HCO3a) 23.2 mEq/L (22-26); Base Excess (BEa) -1.1 mEq/L (0 (+/-) 2.5); CO2 Tension 37.3 mmHg (35.0-45.0); Hemoglobin (Hb) 9.4 g/dL (14.0-18.0); O2 Tension (PaO2) 92.8 mmHg (80.0-100.0); pH, Arterial 7.41 (7.35-7.45)
[2017-07-20 07:22] LABS: ALV-art Gradient 288.375 (0-20); Calcium, Ionized 0.9 mmol/L (1.12-1.30); Puncture Site ALINE
[2017-07-20] MEDS: Sodium Chloride 0.45% 1,000 ML IV SCH (07:51)
--- NOTE | 2017-07-20 08:20 | CT ---
PRELIMINARY REPORT/[facility]/EMERGENCY AFTER HOURS PROCEDURE: EXAM: CT Chest Without Intravenous Contrast CLINICAL HISTORY: 51 years old, male; Screening exam; Other: Organ donor; Other screening; Patient HX: Eval for organ p lacement. Pt is a organ donor TECHNIQUE: Axial computed tomography images of the chest without intravenous contrast. Coronal reformatted images were created and reviewed. COMPARISON: No relevant prior studies available. FINDINGS: Lungs: There are consolidations at the bilateral lung bases with ground glass opacification compatibl e with moderate pulmonary edema. There is a pulmonary parenchymal calcification consistent with remot e granulomatous organism exposure. Pleural space: Normal. No pneumothorax. No significant effusion. Heart: The cardiac structures are normal. No significant pericardial effusion. Thyroid: The visualized thyroid gland is unremarkable. Bones/joints: Normal. No acute fracture. No dislocation. Soft tissues: Normal. Vasculature: Normal. No thoracic aortic aneurysm. Lymph nodes: Normal. No enlarged lymph nodes. Tubes, lines and devices: There is a tunneled RIGHT hemodialysis catheter with tip overlying the RIGH T atrium. There is a LEFT subclavian central venous catheter. A tracheostomy tube is present. IMPRESSION: There are consolidations at the bilateral lung bases with ground glass opacification compatible with moderate pulmonary edema. EXAM: CT Abdomen and Pelvis Without Intravenous Contrast EXAM DATE/TIME: Exam ordered 07/20/2017 5:01 AM CLINICAL HISTORY: 51 years old, male; Screening exam; Other: Organ donor; Other screening; Patient HX: Eval for organ p lacement. Pt is a organ donor TECHNIQUE: Axial computed tomography images of the abdomen and pelvis without intravenous contrast. Coronal reformatted images were created and reviewed. COMPARISON: CT Chest Abd Pelvis W Con 2017-07-08 04:07 FINDINGS: ABDOMEN: Liver: There is a tiny punctate calcification in the liver which is nonspecific but possibly represen tative of prior granuloma is organism exposure. Gallbladder and bile ducts: The gallbladder is normal. There is no evidence of biliary ductal dilatio n. No calcified stones. Pancreas: The pancreas is normal. No ductal dilation. Spleen: The spleen demonstrates punctate calcifications, consistent with remote granulomatous organis m exposure. Adrenals: The adrenal glands are normal. Kidneys and ureters: The kidneys are normal. No obstructing stones. No hydronephrosis. Stomach and bowel: The duodenum is unremarkable. The colon is normal. There is no evidence of intesti nal perforation or obstruction. No mucosal thickening. Appendix: A normal appendix is identified. PELVIS: Bladder: The bladder is decompressed by a Dorsey catheter but is otherwise normal. There is a small am ount of intraluminal air consistent with instrumentation. No stones. Reproductive: Unremarkable as visualized. ABDOMEN and PELVIS: Intraperitoneal space: Normal. No free air. No significant fluid collection. Bones/joints: Patient is post surgical lumbosacral fusion at L5-S1. No acute fracture. No dislocation. Soft tissues: Normal. Vasculature: There is an infrarenal IVC filter. No abdominal aortic aneurysm. Lymph nodes: Normal. No enlarged lymph nodes. Tubes, lines and devices: A gastrostomy tube is noted in the stomach. IMPRESSION: Punctate spleen and liver calcification of indeterminate significance. Kidneys in normal anatomic position. Thank you for allowing us to participate in the care of your patient. Dictated and Authenticated by: Antonio Layne MD 07/20/2017 5:35 AM Central Time ([place] & [place]) FINAL REPORT CT CHEST AND ABDOMEN AND PELVIS WITHOUT CONTRAST: Date: 07/20/17 HISTORY: STA protocol. Evaluate for organ placement. COMPARISON: CT chest/abdomen/pelvis dated 07/08/17. FINDINGS: Tracheostomy tube is in place. There is compressive atelectasis in the lung bases. Scattered bibasila r calcified granulomas. There is mild interstitial and alveolar opacities suggesting edema. There are scattered areas of atelectasis. Lung hypoinflation. Mild dilatation of the gallbladder. IVC filter is in place. No solid organ injury. No free intraperit santiago gas or fluid. Postoperative changes L5-S1. Left femoral venous catheter is in place, tip at the left common iliac v ein. IMPRESSION: Findings and impression are concordant with preliminary report. POS: [facility]
--- NOTE | 2017-07-20 08:31 | RAD ---
CHEST 1 VIEW: HISTORY: Chest pain. COMPARISON: 07/19/17. FINDINGS: Cardiac silhouette is magnified by projection. Pulmonary vasculature is slightly more engorged than on the previous study with interval increase in patchy bilateral perihilar and bibasilar infiltrates. Mediastinum is midline. Lines and tubes appear unchanged in position. athletic monitor leads overl ie the chest. IMPRESSION: Slight interval worsening in radiographic appearance of pulmonary edema. POS: [facility]
[2017-07-20] MEDS ORDERED: niCARdipine HCl 50 MG in Sodium Chloride 0.9% 250 ML 230 ML IVPB SCH (09:00)
--- NOTE | 2017-07-20 09:17 | RAD ---
CHEST 1 VIEW: Date: 07/20/17 HISTORY: Chest pain. Dyspnea. COMPARISON: 07/20/17. FINDINGS: Cardiac silhouette is magnified by projection. Pulmonary vasculature remains engorged with patchy air space disease, left greater than right, similar in appearance to the previous exam. Mediastinum is m idline. Lines and tubes appear unchanged in position. classroom monitor leads overlie the chest. IMPRESSION: Radiographic appearance of pulmonary edema and other findings are stable. POS: [facility]
[2017-07-20 09:40] LABS: Hemoglobin 9.6 g/dL (14.0-18.0); Mean Corpuscular HGB CONC 33.2 g/dL (32.0-36.0); Mean Corpuscular Hemoglobin 30.8 pg (27.0-31.0); Mean Corpuscular Volume 92.6 fl (80.0-94.0); Mean Platelet Volume 7.7 fL (7.4-10.4); Platelet Count 319 thou/uL (130-400); RBC Distribution Width 14.3 % (11.5-14.5); Red Blood Cell (RBC) Count 3.13 mill/uL (4.70-6.10); White Blood Cell (WBC) Count 17.4 thou/uL (4.8-10.8)
[2017-07-20 09:42] LABS: INR-International Normal Ratio 1.2; PTT 24.5 SEC (22.9-36.1); Prothrombin Time 15.2 SEC (12.0-14.7)
[2017-07-20 09:59] LABS: ALT (SGPT) 13 U/L (8-55); AST (SGOT) 34 U/L (5-34); Albumin 3.9 g/dL (3.5-5.0); Alkaline Phosphatase 79 U/L (40-150); Anion Gap 32 mmol/L (10-20); Bilirubin, Total 1.7 mg/dL (0.2-1.2); Calc. Creatinine Clearance 12 mL/min (70-130); Calcium 7.5 mg/dL (7.8-10.44); Carbon Dioxide 19 mmol/L (22-29); Chloride 100 mmol/L (98-107); Estimated GFR-MDRD 6; Globulin 2.7 g/dL (2.4-3.5); Glucose 166 mg/dL (70-105); Magnesium 3.3 mg/dL (1.6-2.6); Potassium 4.9 mmol/L (3.5-5.1); Protein, Total 6.6 g/dL (6.0-8.3); Sodium 146 mmol/L (136-145)
[2017-07-20 10:02] LABS: #Eosinphils 0.2 thou/uL (0.0-0.7); #Lymphocytes 0.3 thou/uL (1.20-3.40); %Eosinophils 0.9 % (0.0-10.0); %Lymphocytes 1.9 % (21.0-51.0); %Monocytes 5.6 % (0.0-10.0); %Neutrophils 91.6 % (42.0-75.0); Band 5 % (5-11); Lymphocytes 4 % (21-51); MDiff Complete? YES; Monocytes 5 % (0-10); Myelocyte 1 % (0-0); Neutrophil 85 % (42-75); RBC Morphology Normal
[2017-07-20 10:04] LABS: Phosphorus 13.3 mg/dL (2.3-4.7)
[2017-07-20 10:12] LABS: BUN (Urea Nitrogen) 173 mg/dL (8.4-25.7)
[2017-07-20] MEDS ORDERED: Bumetanide 1 MG/4 ML VIAL IVP SCH (10:30)
[2017-07-20] MEDS ORDERED: Fluconazole In NaCl,Iso-Osm 200 MG in Premix Bag 1 BAG IVPB SCH (12:00)
[2017-07-20 13:15] LABS: Ionized Calcium 3.9 mg/dL (4.5-5.6)
--- NOTE | 2017-07-20 13:15 | PRG ---
DATE OF SERVICE: 07/20/2017 This is a patient that has been declared brain . We are awaiting organ procurement for transplan t. Therefore, the transplant team requested that we dialyze this patient to optimize the patient's e lectrolytes. The patient has been placed on 4 hours of a full dialysis, he has been maintaining hem odynamics and tolerating the dialysis so far. PHYSICAL EXAMINATION: HEENT: Unremarkable, endotracheal tube is still in place. CARDIOVASCULAR: First and second heart sounds were heard. RESPIRATORY: Reveals vented sounds. DIGESTIVE: Revealed a benign abdomen. EXTREMITIES: No peripheral edema. IMPRESSION: 1. Dense acute tubular necrosis. Undergoing hemodialysis as per request of the transplant team. 2. Status post brain in the context of an intracerebral bleed. PLAN: Hemodialysis as per the request of the transplant team.
[2017-07-20 14:58] LABS: Bilirubin Negative (Negative); Blood, Urine Moderate (Negative); Clarity CLOUDY (Clear); Glucose, Urine (Dipstick) Negative (Negative); Leukocyte Negative (Negative); Nitrite Negative (Negative); Protein, Urine (Dipstick) 30 mg/dL (Neg-Trace); Specific Gravity, Urine 1.024 (1.002-1.036); Urobilinogen 0.2 mg/dL (0.2-1.0); pH, Urine 5.5 (5.0-9.0)
[2017-07-20 15:03] LABS: Hyaline Casts/LPF 4-6 HYALINE CAST LPF (0-3 Hyaline); Pathc Cast-AUWi Flag 0.94 (0-2.49); Squamous Epithelial 0-3 HPF (0-3)
[2017-07-20 15:08] LABS: Yeast-AUWi Flag 124.3 (0-25.0)
[2017-07-20 15:21] LABS: Bacteria/HPF 2+ HPF (None Seen); RBC/HPF 0-3 HPF (0-3); Yeast-All Forms None Seen HPF (None Seen)
[2017-07-20 16:00] LABS: Actual Bicarbonate (HCO3a) 27.8 mEq/L (22-26); Base Excess (BEa) 2.6 mEq/L (0 (+/-) 2.5); CO2 Tension 45.5 mmHg (35.0-45.0); O2 Tension (PaO2) 257.6 mmHg (80.0-100.0)
[2017-07-20 16:01] LABS: Calcium, Ionized 1.1 mmol/L (1.12-1.30); Hemoglobin (Hb) 10.9 g/dL (14.0-18.0); Puncture Site ALINE
[2017-07-20 16:02] LABS: ALV-art Gradient 113.325 (0-20)
[2017-07-20 16:09] LABS: Hemoglobin 10.7 g/dL (14.0-18.0); Mean Corpuscular HGB CONC 33.3 g/dL (32.0-36.0); Mean Corpuscular Hemoglobin 30.9 pg (27.0-31.0); Mean Corpuscular Volume 92.8 fl (80.0-94.0); Mean Platelet Volume 7.4 fL (7.4-10.4); Platelet Count 356 thou/uL (130-400); RBC Distribution Width 14.3 % (11.5-14.5); Red Blood Cell (RBC) Count 3.44 mill/uL (4.70-6.10); White Blood Cell (WBC) Count 21.8 thou/uL (4.8-10.8)
[2017-07-20 16:15] LABS: INR-International Normal Ratio 1.2; PTT 25.2 SEC (22.9-36.1); Prothrombin Time 15.1 SEC (12.0-14.7)
[2017-07-20 16:26] LABS: Band 2 % (5-11); Lymphocytes 4 % (21-51); MDiff Complete? YES; Metamyelocyte 1 % (0-0); Monocytes 2 % (0-10); Neutrophil 90 % (42-75); PLT Morphology Comment Appears Adequate; Reactive Lymphocytes 1 % (0-10)
[2017-07-20 16:38] LABS: ALT (SGPT) 13 U/L (8-55); AST (SGOT) 35 U/L (5-34); Albumin 4.4 g/dL (3.5-5.0); Alkaline Phosphatase 95 U/L (40-150); Anion Gap 23 mmol/L (10-20); BUN (Urea Nitrogen) 54 mg/dL (8.4-25.7); Bilirubin, Total 1.7 mg/dL (0.2-1.2); Calc. Creatinine Clearance 29 mL/min (70-130); Calcium 9.1 mg/dL (7.8-10.44); Carbon Dioxide 24 mmol/L (22-29); Chloride 97 mmol/L (98-107); Estimated GFR-MDRD 18; Globulin 3.2 g/dL (2.4-3.5); Glucose 137 mg/dL (70-105); Magnesium 2.2 mg/dL (1.6-2.6); Phosphorus 6.7 mg/dL (2.3-4.7); Potassium 4.1 mmol/L (3.5-5.1); Protein, Total 7.6 g/dL (6.0-8.3); Sodium 140 mmol/L (136-145)
[2017-07-20 22:14] VITALS: BP 131/67
[2017-07-20 23:15] LABS: INR-International Normal Ratio 1.2; PTT 24.5 SEC (22.9-36.1); Prothrombin Time 15.1 SEC (12.0-14.7)
[2017-07-20 23:24] LABS: Band 3 % (5-11); Hemoglobin 9.6 g/dL (14.0-18.0); Lymphocytes 1 % (21-51); MDiff Complete? YES; Mean Corpuscular HGB CONC 33.8 g/dL (32.0-36.0); Mean Corpuscular Hemoglobin 31.3 pg (27.0-31.0); Mean Corpuscular Volume 92.7 fl (80.0-94.0); Mean Platelet Volume 7.7 fL (7.4-10.4); Monocytes 6 % (0-10); Myelocyte 1 % (0-0); Neutrophil 89 % (42-75); Platelet Count 313 thou/uL (130-400); RBC Distribution Width 14.2 % (11.5-14.5); Red Blood Cell (RBC) Count 3.08 mill/uL (4.70-6.10); White Blood Cell (WBC) Count 18.6 thou/uL (4.8-10.8)
[2017-07-20 23:42] LABS: ALT (SGPT) 11 U/L (8-55); AST (SGOT) 31 U/L (5-34); Albumin 3.9 g/dL (3.5-5.0); Alkaline Phosphatase 82 U/L (40-150); Anion Gap 22 mmol/L (10-20); BUN (Urea Nitrogen) 72 mg/dL (8.4-25.7); Bilirubin, Total 1.1 mg/dL (0.2-1.2); Calc. Creatinine Clearance 23 mL/min (70-130); Calcium 8.5 mg/dL (7.8-10.44); Carbon Dioxide 27 mmol/L (22-29); Chloride 96 mmol/L (98-107); Estimated GFR-MDRD 13; Globulin 2.9 g/dL (2.4-3.5); Glucose 149 mg/dL (70-105); Phosphorus 8.1 mg/dL (2.3-4.7); Potassium 4.2 mmol/L (3.5-5.1); Protein, Total 6.8 g/dL (6.0-8.3); Sodium 141 mmol/L (136-145)
[2017-07-21 00:09] VITALS: TEMP 98.3
[2017-07-21 00:19] LABS: Magnesium 2.7 mg/dL (1.6-2.6)
[2017-07-21 00:23] LABS: Bilirubin Small (Negative); Blood, Urine Large (Negative); Glucose, Urine (Dipstick) Negative (Negative); Leukocyte Trace (Negative); Nitrite Negative (Negative); Protein, Urine (Dipstick) 100 mg/dL (Neg-Trace); Specific Gravity, Urine 1.029 (1.002-1.036); Urobilinogen 0.2 mg/dL (0.2-1.0); pH, Urine 5.5 (5.0-9.0)
[2017-07-21 00:33] LABS: Bacteria/HPF None Seen HPF (None Seen); Clarity Cloudy (Clear); Hyaline Casts/LPF 0-3 HYALINE CAST LPF (0-3 Hyaline); Pathc Cast-AUWi Flag 0.67 (0-2.49); Squamous Epithelial 0-3 HPF (0-3); Yeast-AUWi Flag 664.9 (0-25.0)
[2017-07-21 00:41] LABS: RBC/HPF 0-3 HPF (0-3); Renal Epithelial None Seen HPF (0-3); Transitional Epithelial NONE SEEN HPF (0-3); Yeast-All Forms None Seen HPF (None Seen)
== END 2017-07-21 02:19 | disposition expired ==
LOC: SDC 13:47 → CCU 14:23 → SDC 07-21 02:19
DX: Z52.9 Donor of unspecified organ or tissue (principal)
CPT/HCPCS: 36415; 47000; 71045; 71250; 74177; 76942; 80053; 81001; 82150; 82248; 82330; 82550; 82553; 82805; 82977; 83605; 83690; 83735; 84100; 85025; 85610; 85730; 86850; 86900; 86901; 87070; 87077; 87186; 87205; 88331; 90935; 93306; 94002; 94003; A4216; G0257; J0690; J1265; J1450; J1940; J2543; J2930; J3430; J3490; J7050; P9016; P9047; P9059